=== PATIENT | male | born 1940 | race Caucasian/White ===

== ENCOUNTER 2019-12-06 10:23 | Outpatient (NON) | payer MEDICARE, SELFPAY ==
[2019-12-06 20:24] LABS: SARS-CoV-2 RNA PCR Positive
== END 2019-12-06 10:24 ==
PROVIDERS: PCP Family Medicine; Visit Provider Physician Assistant
DX: U07.1 COVID-19 (principal)
CPT/HCPCS: 87635; C9803; U0003

== ENCOUNTER 2019-12-09 06:59 | Inpatient (IN) | payer MEDICARE, SELFPAY ==
[2019-12-09] VITALS (25 sets, daily range): BP systolic 79–161; BP diastolic 59–99; PULSE 73–88; RESP 16–27; TEMP 35.6–36.8; O2SAT 79–100; BMI 27.3
--- NOTE | ~2019-12-09 | XR_ITS ---
EXAMINATION: XR chest 1V portable INDICATION: Respiratory failure TECHNIQUE: Portable AP chest at 0531 hours COMPARISON: 12/11/2019 FINDINGS: Diffuse interstitial and airspace opacities persist with slight worsening in upper the lung zones. There is no pleural effusion or pneumothorax. The cardiomediastinal silhouette is normal. IMPRESSION: 1. . Diffuse lung disease with worsening in the upper lung zones, consistent with pneumonia and/or pu lmonary edema and/or acute respiratory distress syndrome (ARDS). Reviewed, dictated and finalized at location A. IMPRESSION: 1. . Diffuse lung disease with worsening in the upper lung zones, consistent wi th pneumonia and/or pulmonary edema and/or acute respiratory distress syndrome (ARDS).
--- NOTE | ~2019-12-09 | XR_ITS ---
EXAMINATION: XR chest 1V portable DATE: 12/09/2019 07:57 INDICATION: COVID-19 pneumonia. TECHNIQUE: A single frontal view of the chest was obtained. COMPARISON: Chest 2 views 01/20/2014, chest CT 06/01/2015 FINDINGS: The patient is rotated to his right. There is volume loss of right hemithorax from right lo wer lobectomy. There are mild airspace opacities in all right lung zones and in left midlung zone. No pleural effusion. There is a small right pneumothorax. The heart size is normal. There is a stent gr aft in abdominal aorta. IMPRESSION: 1. Small right pneumothorax. I called this result to Dr. Hoyt on 12/09/19 at 8:05 AM. 2. Mild airspace opacities in right lung and left midlung zone, consistent with pneumonia. Reviewed, dictated and finalized at location A. IMPRESSION: 1. Small right pneumothorax. I called this result to Dr. Hoyt on 12/09/19 at 8: 05 AM. 2. Mild airspace opacities in right lung and left midlung zone, consistent with pneumonia.
--- NOTE | ~2019-12-09 | XR_ITS ---
EXAMINATION: XR chest 1V portable INDICATION: Hypoxia, increasing oxygen needs TECHNIQUE: Portable AP chest at 1111 hours COMPARISON: 0749 hours FINDINGS: There is an unchanged small right apical pneumothorax. There are diffuse airspace opacities with slight improvement in the upper lung zones. No pleural effusion is identified. The cardiomedias tinal silhouette is stable. IMPRESSION: 1. Stable small right apical pneumothorax. 2. Diffuse lung disease with slight improvement in the upper lung zones, consistent with pneumonia. Reviewed, dictated and finalized at location A. IMPRESSION: 1. Stable small right apical pneumothorax. 2. Diffuse lung disease with slight improvement in the upper lung zones, consis tent with pneumonia.
--- NOTE | ~2019-12-09 | XR_ITS ---
EXAMINATION: XR chest 1V portable DATE: 12/10/2019 06:05 INDICATION: Respiratory failure. COVID-19 pneumonia. TECHNIQUE: A single frontal view of the chest was obtained. COMPARISON: Chest single view 12/09/2019 FINDINGS: There are airspace and interstitial opacities throughout the lungs bilaterally. No pleural effusion. There is a tiny right apical pneumothorax. The heart size is normal. There is a stent graft in abdominal aorta. IMPRESSION: 1. Worsened diffuse lung disease, consistent with pneumonia versus pulmonary edema versus acute respi ratory distress syndrome (ARDS). 2. Tiny right apical pneumothorax with interval improvement. Reviewed, dictated and finalized at location A. IMPRESSION: 1. Worsened diffuse lung disease, consistent with pneumonia versus pulmonary ed zev versus acute respiratory distress syndrome (ARDS). 2. Tiny right apical pneumothorax with interval improvement.
--- NOTE | ~2019-12-09 | XR_ITS ---
EXAMINATION: XR chest 1V portable DATE: 12/17/2019 08:22 INDICATION: COVID-19 pneumonia. TECHNIQUE: A single frontal view of the chest was obtained. COMPARISON: Chest single view 12/14/2019 FINDINGS: There are interstitial airspace opacities involving all lung zones bilaterally. No pleural effusion or pneumothorax. The heart size is normal. A right upper extremity peripherally inserted michelle tral venous catheter (PICC) is seen with tip at the superior cavoatrial junction. There is a stent gr aft in abdominal aorta. IMPRESSION: 1. Stable diffuse lung disease, consistent with pneumonia versus pulmonary edema versus acute respira tory distress syndrome (ARDS). Reviewed, dictated and finalized at location B. IMPRESSION: 1. Stable diffuse lung disease, consistent with pneumonia versus pulmonary myron a versus acute respiratory distress syndrome (ARDS).
--- NOTE | ~2019-12-09 | XR_ITS ---
EXAMINATION: XR chest 1V portable INDICATION: COVID 19 pneumonia TECHNIQUE: Portable AP chest at 0542 hours COMPARISON: 12/19/2019 FINDINGS: There are diffuse interstitial opacities of the lungs which demonstrate improvement in the right upper lung zone and worsening throughout the left lung. A right upper extremity PICC ends with its tip in the superior cavoatrial junction. The heart size is normal. There is no pleural effusion o r pneumothorax. IMPRESSION: 1. Diffuse lung disease with slight worsening throughout the left hemithorax in slight improvement in the right upper lung zone, consistent with pneumonia and/or pulmonary edema and/or acute respiratory distress syndrome (ARDS). Reviewed, dictated and finalized at location A. IMPRESSION: 1. Diffuse lung disease with slight worsening throughout the left hemithorax in slight improvement in the right upper lung zone, consistent with pneumonia and /or pulmonary edema and/or acute respiratory distress syndrome (ARDS).
--- NOTE | ~2019-12-09 | XR_ITS ---
EXAMINATION: XR chest 1V portable DATE: 12/19/2019 05:55 INDICATION: COVID-19 pneumonia TECHNIQUE: frontal view of the chest was obtained. COMPARISON: Chest radiograph dated 12/17/2019 FINDINGS: Apparent slight increase in density without significant change in extent of bilateral patchy and kely stinct interstitial opacities throughout both lungs. Tiny bilateral pleural effusions. No pneumothora x. Heart size is normal. Right upper extremity peripherally inserted central venous catheter (PICC) t ip at the caudal superior vena cava. . Partially visualized abdominal aortic stent graft. IMPRESSION: 1. Slight progression in diffuse bilateral lung disease which could represent pneumonia, pulmonary ed zev, ARDS or some combination thereof. Reviewed, dictated and finalized at location A. IMPRESSION: 1. Slight progression in diffuse bilateral lung disease which could represent p neumonia, pulmonary edema, ARDS or some combination thereof.
--- NOTE | ~2019-12-09 | US_ITS ---
EXAMINATION: US venous doppler [facility] DATE: 12/23/2019 11:27 INDICATION: Bilateral lower limb pain TECHNIQUE: Theodore scale images without and with compression and Doppler images of the bilateral lower e xtremity veins were obtained. COMPARISON: None FINDINGS: The right common femoral vein, profunda femoral vein, femoral vein, popliteal vein, peroneal trunk, p osterior tibial veins, and greater saphenous vein are patent. The left common femoral vein, profunda femoral vein, femoral vein, popliteal vein, peroneal trunk, po sterior tibial veins, and greater saphenous vein are patent. IMPRESSION: 1. Patent bilateral lower extremity veins. No evidence of deep venous thrombosis. Reviewed, dictated and finalized at location A. IMPRESSION: 1. Patent bilateral lower extremity veins. No evidence of deep venous thrombosi s.
--- NOTE | ~2019-12-09 | XR_ITS ---
EXAMINATION: XR chest 1V portable DATE: 12/29/2019 05:48 INDICATION: Acute respiratory failure TECHNIQUE: frontal view of the chest was obtained. COMPARISON: Chest radiograph dated 12/28/2019 FINDINGS: Right upper extremity peripherally inserted central venous catheter (PICC) tip at the caudal superio r vena cava. No interval change in bilateral coarse reticular and patchy airspace opacities througho ut both lungs. Increased subpleural lucency at the apices and costophrenic angles correspond emphysem a on prior CT. Likely trace bilateral pleural effusions. No pneumothorax. Skinfold projects over the lateral left lung. Heart size is normal. Aneurysmal aortic arch. Partially visualized abdominal aorti c endoluminal stent graft. IMPRESSION: 1. Unchanged diffuse bilateral lung disease which could represent pneumonia, pulmonary edema, post in fectious atelectasis/scarring or some combination thereof. 2. Emphysema. Reviewed, dictated and finalized at location A. IMPRESSION: 1. Unchanged diffuse bilateral lung disease which could represent pneumonia, pu lmonary edema, post infectious atelectasis/scarring or some combination thereof . 2. Emphysema.
--- NOTE | ~2019-12-09 | XR_ITS ---
XR chest 1V portable 01/01/2020 07:02 Indication: Pneumonia. Pulmonary fibrosis. Procedure: AP portable chest Comparison: Comparison to multiple prior studies sequentially, with oldest reviewed study dated 10/2019. Findings: There is extensive mixed interstitial and airspace disease with progression in the left odette g base. The probable small pleural effusions. No pneumothorax. No acute osseous abnormality. PICC karyn e tip in the condyle aspect of the SVC. Impression: 1: Progression of extensive mixed interstitial and airspace disease which may represent a combination of pleural edema, pneumonia and/or pulmonary fibrosis. Reviewed, dictated and finalized at location A. Impression: 1: Progression of extensive mixed interstitial and airspace disease which may r epresent a combination of pleural edema, pneumonia and/or pulmonary fibrosis.
--- NOTE | ~2019-12-09 | XR_ITS ---
EXAMINATION: XR chest 1V portable INDICATION: Acute respiratory failure TECHNIQUE: Portable AP chest at 0601 hours COMPARISON: 12/25/2019 FINDINGS: A right upper extremity PICC ends with its tip in the distal superior vena cava. Diffuse op acities of the lungs persist with slight improvement in the right lung base. There is a small right p leural effusion. No pneumothorax is identified. The cardiomediastinal silhouette is stable. There is a partially imaged endoluminal aortic stent in the upper abdomen. IMPRESSION: 1. . Diffuse lung disease with improvement in the right lung base, consistent with pneumonia and/or p ulmonary edema and/or acute respiratory distress syndrome (ARDS). 2. Small right pleural effusion. Reviewed, dictated and finalized at location A. IMPRESSION: 1. . Diffuse lung disease with improvement in the right lung base, consistent w ith pneumonia and/or pulmonary edema and/or acute respiratory distress syndrome (ARDS). 2. Small right pleural effusion.
--- NOTE | ~2019-12-09 | XR_ITS ---
EXAMINATION: XR chest 1V portable DATE: 12/28/2019 05:47 INDICATION: Acute respiratory failure TECHNIQUE: frontal view of the chest was obtained. COMPARISON: Chest radiograph dated 12/28/2019 FINDINGS: Right upper extremity peripherally inserted central venous catheter (PICC) tip at the superior cavoa trial junction. Bilateral diffuse coarse reticular and patchy airspace opacities superimposed over em physema which is better appreciated on prior CT. Tiny bilateral pleural effusions. No pneumothorax. H eart size is normal. 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 Partially visualize d abdominal aortic endoluminal stent graft. IMPRESSION: 1. Diffuse bilateral coarse reticular and patchy airspace opacities with differential including pneum onia, pulmonary edema, atelectasis or some combination. 2. Emphysema. 3. Aneurysmal thoracic aortic arch with partially visualized endoluminal stent grafting abdominal aor ta. Of the Reviewed, dictated and finalized at location A. IMPRESSION: 1. Diffuse bilateral coarse reticular and patchy airspace opacities with differ ential including pneumonia, pulmonary edema, atelectasis or some combination. 2. Emphysema. 3. Aneurysmal thoracic aortic arch with partially visualized endoluminal stent grafting abdominal aorta. Of the
--- NOTE | ~2019-12-09 | XR_ITS ---
EXAMINATION: XR chest 1V portable INDICATION: COVID 19 pneumonia TECHNIQUE: Portable AP chest at 0548 hours COMPARISON: 12/24/2019 FINDINGS: A right upper extremity PICC ends with its tip in the distal superior vena cava. There are unchanged diffuse opacities in the lungs, left greater than right. Small pleural effusions are presen t. There is no pneumothorax. The cardiomediastinal silhouette is stable. IMPRESSION: 1. Stable diffuse lung disease, consistent with pneumonia and/or pulmonary edema and/or acute respira tory distress syndrome (ARDS). Reviewed, dictated and finalized at location A. IMPRESSION: 1. Stable diffuse lung disease, consistent with pneumonia and/or pulmonary myron a and/or acute respiratory distress syndrome (ARDS).
--- NOTE | ~2019-12-09 | XR_ITS ---
EXAMINATION: XR chest 1V portable DATE: 12/30/2019 06:15 INDICATION: Acute respiratory failure TECHNIQUE: frontal view of the chest was obtained. COMPARISON: Chest radiograph dated FINDINGS: Right upper extremity peripherally inserted central venous catheter (PICC) tip at the caudal superior vena cava. No interval change in bilateral coarse reticular and patchy airspace opacities throughout both lungs. Increased subpleural lucency at the apices and costophrenic angles corresponding to emph ysema on prior CT. Likely trace bilateral pleural effusions. No pneumothorax. Skinfold projects over the lateral left lung. Heart size is normal. Aneurysmal aortic arch. Partially visualized abdominal a ortic endoluminal stent graft. IMPRESSION: 1. Unchanged diffuse bilateral lung disease which could represent pneumonia, pulmonary edema, post in fectious atelectasis/scarring or some combination thereof. 2. Emphysema. Reviewed, dictated and finalized at location A. IMPRESSION: 1. Unchanged diffuse bilateral lung disease which could represent pneumonia, pu lmonary edema, post infectious atelectasis/scarring or some combination thereof . 2. Emphysema.
--- NOTE | ~2019-12-09 | XR_ITS ---
EXAMINATION: XR chest 1V portable INDICATION: COVID 19 pneumonia, shortness of breath TECHNIQUE: Portable AP chest at 0545 hours COMPARISON: 12/21/2019 FINDINGS: There are diffuse opacities in the lungs, left greater than right which demonstrate improve ment in the right lung base and worsening in the left lung base. Small pleural effusions are suggeste d. There is no pneumothorax. The cardiomediastinal silhouette is stable. A right upper extremity PICC ends with its tip at the superior cavoatrial junction. IMPRESSION: 1. . Diffuse lung disease with improvement in the right lung base and slight worsening in the left johanna ng base, consistent with pneumonia and/or pulmonary edema and/or acute respiratory distress syndrome (ARDS). Reviewed, dictated and finalized at location A. IMPRESSION: 1. . Diffuse lung disease with improvement in the right lung base and slight wo rsening in the left lung base, consistent with pneumonia and/or pulmonary edema and/or acute respiratory distress syndrome (ARDS).
--- NOTE | ~2019-12-09 | CT_ITS ---
EXAMINATION: CT chest high resolution wo ca DATE: 12/26/2019 09:28 INDICATION: Possible developing pulmonary fibrosis post COVID 19 TECHNIQUE: Computed tomography (CT) of the chest was performed without intravenous contrast. The dose -length product (DLP) was 208.78 mGy-cm. Automated exposure control and iterative reconstruction tech [employer] were employed. COMPARISON: 06/01/2015 FINDINGS: A right upper extremity PICC ends at the distal superior vena cava. Airspace opacities are present in the lung bases. There are diffuse reticular and groundglass opacities with an upper lung z one predominance. Emphysema was noted on the comparison examination. Chronic volume loss in the right hemithorax is consistent with prior right lower lobectomy. The heart size is normal. No pathological ly enlarged thoracic lymph nodes are identified. Calcified coronary artery atherosclerosis is noted. Small pleural effusions are present. There is no pneumothorax. A partially imaged endoluminal stent g raft is noted in the upper abdominal aorta. There is severe thoracic spondylosis. IMPRESSION: 1. Airspace opacities of the lung bases, consistent with atelectasis and pneumonia. 2. Diffuse reticular and groundglass opacities with upper lung zone predominance, left greater than r ight which could reflect sequela of COVID 19 pneumonia superimposed on a background of emphysema and/ or pulmonary fibrosis. 3. Small pleural effusions. Reviewed, dictated and finalized at location B. IMPRESSION: 1. Airspace opacities of the lung bases, consistent with atelectasis and pneumo edmond. 2. Diffuse reticular and groundglass opacities with upper lung zone predominanc e, left greater than right which could reflect sequela of COVID 19 pneumonia canchola perimposed on a background of emphysema and/or pulmonary fibrosis. 3. Small pleural effusions.
--- NOTE | ~2019-12-09 | XR_ITS ---
EXAMINATION: XR chest 1V portable INDICATION: Respiratory failure TECHNIQUE: Portable AP chest at 0528 hours COMPARISON: 12/10/2019 FINDINGS: Diffuse interstitial and airspace opacities persist with slight improvement in the left mid lung zone. No pleural effusion or pneumothorax is identified. The cardiomediastinal silhouette is nor mal. IMPRESSION: 1. Diffuse lung disease with slight improvement in the left upper lung zone, consistent with pneumoni a and/or pulmonary edema and/or acute respiratory distress syndrome (ARDS). Reviewed, dictated and finalized at location A. IMPRESSION: 1. Diffuse lung disease with slight improvement in the left upper lung zone, co nsistent with pneumonia and/or pulmonary edema and/or acute respiratory distres s syndrome (ARDS).
--- NOTE | ~2019-12-09 | XR_ITS ---
EXAMINATION: XR chest 1V portable INDICATION: Acute respiratory failure TECHNIQUE: Portable AP chest at 0513 hours COMPARISON: 12/26/2019 FINDINGS: A right upper extremity PICC ends with its tip in the distal superior vena cava. Diffuse in terstitial and airspace opacities are present throughout the lungs which are stable. A small right pl eural effusion is present. There is no pneumothorax. The cardiomediastinal silhouette is stable. Ther e is a partially imaged endovascular aortic stent in the upper abdomen. IMPRESSION: 1. Stable diffuse lung disease, consistent with atelectasis versus pneumonia in the lung bases superi mposed on a background of pulmonary fibrosis. 2. Small pleural effusions. Reviewed, dictated and finalized at location A. IMPRESSION: 1. Stable diffuse lung disease, consistent with atelectasis versus pneumonia in the lung bases superimposed on a background of pulmonary fibrosis. 2. Small pleural effusions.
--- NOTE | ~2019-12-09 | XR_ITS ---
EXAMINATION: XR chest PICC line EXAM DATE: 12/14/2019 12:33 INDICATION: PICC line placement. TECHNIQUE: Portable AP frontal chest x-ray was obtained. Comparison is made to prior examination from earlier same date. FINDINGS: There is a right-sided PICC line with tip projecting over the cavoatrial junction. There is extensive bilateral abnormal reticulation again seen, pulmonary edema and/or infection. No sizable p leural effusion. No pneumothorax. Cardiomediastinal silhouette is normal. Mild thoracic spondylosis. IMPRESSION: Extensive bilateral edema and/or infection not significantly changed. Reviewed, dictated and finalized at location A. IMPRESSION: Extensive bilateral edema and/or infection not significantly darnell ed.
--- NOTE | ~2019-12-09 | XR_ITS ---
EXAMINATION: XR chest 1V portable EXAM DATE: 12/13/2019 05:29 INDICATION: Respiratory failure. TECHNIQUE: Portable AP frontal chest x-ray was obtained. Comparison is made to prior examination from 12/12/2019, 12/10, 12/08. FINDINGS: There is extensive bilateral abnormal reticulation again seen, pulmonary edema and/or infec tion. Possible small right pleural effusion. No pneumothorax. Cardiomediastinal silhouette is normal. Mild thoracic spondylosis. IMPRESSION: Extensive bilateral edema and/or infection not significantly changed. Reviewed, dictated and finalized at location B. IMPRESSION: Extensive bilateral edema and/or infection not significantly darnell ed.
--- NOTE | ~2019-12-09 | XR_ITS ---
EXAMINATION: XR chest 1V portable EXAM DATE: 12/14/2019 06:01 INDICATION: Respiratory failure. TECHNIQUE: Portable AP frontal chest x-ray was obtained. Comparison is made to prior examination from 12/12, 12/11 FINDINGS: There is extensive bilateral abnormal reticulation again seen, pulmonary edema and/or inf ection. No sizable pleural effusion. No pneumothorax. Cardiomediastinal silhouette is normal. Mild th oracic spondylosis. IMPRESSION: Extensive bilateral edema and/or infection not significantly changed. Reviewed, dictated and finalized at location A. IMPRESSION: Extensive bilateral edema and/or infection not significantly darnell ed.
--- NOTE | 2019-12-09 07:00 | ECG_ITS ---
Measurements Intervals [place] Rate: 82 P: -6 NM: 146 QRS: 3 QRSD: 94 T: 14 QT: 381 QTc: 447 Interpretive Statements SINUS RHYTHM BORDERLINE T WAVE ABNORMALITY- INFERIOR LEADS BASELINE ARTIFACT- I, III, AVR, AVL, AVF, V1, V4-V6 BORDERLINE ECG Electronically Signed On 12-09-2019 9:45:10 CDT by Mike Rose D.O.
--- NOTE | 2019-12-09 07:19 | ED.SOB ---
HPI - SOB/Dyspnea General Chief Complaint: Shortness of Breath/Dyspnea Stated Complaint: SOB Time Seen by Provider: 12/09/19 07:11 Source: patient and EMS Mode of arrival: EMS History of Present Illness HPI Narrative: 79 years old white male been complaining of general body aches, not feeling well, slight coughing for the last few days, COVID-19 was +2 days ago, this morning have trouble breathing. History of COPD, former smoker, hypertension, hyperlipidemia, coronary artery disease and peripheral vascular disorder. Related Data Allergies Allergy/AdvReac Type Severity Reaction Status Date / Time No Known Allergies Allergy Verified 11/30/19 11:05 Review of Systems Review of Systems: Narrative: CONSTITUTIONAL: Denies fever, chills, or sweats. EYES: Denies visual changes, redness, or discharge. ENT: Denies rhinorrhea, congestion, sore throat, or otalgia. CARDIOVASCULAR: Denies chest pain, palpitations, or edema. RESPIRATORY: Coughing and shortness of breath. GASTROINTESTINAL: Denies abdominal pain, nausea, vomiting, or diarrhea. GENITOURINARY: Denies dysuria or hematuria. SKIN: Denies rash or itching. MUSCULOSKELETAL: General body aches and pain NEUROLOGIC: Headache and weakness PSYCHIATRIC: Anxiety and depression PMF Past Medical History Medical History AAA (abdominal aortic aneurysm) Anxiety BPH (benign prostatic hyperplasia) CAD (coronary artery disease) Chronic ankle pain Diverticulosis History of lung cancer HLD (hyperlipidemia) HTN (hypertension) IFG (impaired fasting glucose) Pulmonary emphysema PVD (peripheral vascular disease) Surgical History Surgical History History of PTCA S/P lobectomy of lung Family History Family History Sibling Cerebrovascular accident Family history of coronary artery disease Father Family history of coronary artery disease Mother Family history of coronary artery disease Social History Social History Smoking status: Former smoker Second hand tobacco smoke exposure: No Smoking end date: 04/21/13 Alcohol intake: current Drinks per week: 3 Substance use: never Substance use type: does not use Gender identity (if verbalized by the patient): Male Exam Narrative: Exam Narrative: General appearance: Well-developed, well-nourished, slight labored breathing, arrived on nonrebreather Skin: Normal color Head: Normocephalic, nontraumatic Eyes: Clear conjunctiva ENT: Oropharynx normal, ears normal, nose normal Neck: Supple, nontender Chest and respiratory: Airway patent, slight diminution of air entry bilaterally, basilar dry rales Heart: Regular rate/rhythm Abdomen: Soft, nontender, no organomegaly, quiet bowel sounds Vascular: Normal peripheral pulses, normal capillary refill. Musculoskeletal: Normal range of motion, nontender back Neurologic: Alert and oriented ?3, AGING BOX HAND is normal as tested, no gross motor deficit Course Course Emergency Course: Stable Consultations Consultation #1: Dr. JOHNS Date: 12/09/19 Time: 08:12 Consultation #2: DR AZUL Date: 12/09/19 Time: 08:13 Consultation #3: [place] Date: 12/09/19 Time: 08:14 Vital Signs Vital signs: Vital Signs Temperature 36.8 C 12/09/19 06:55 Pulse Rate 85 12/09/19 06:55 Respiratory Rate 24 H 12/09/19 06:55 Blood Pressure 107/70 12/09/19 06:55 Pulse Oximetry 98 12/09/19 06:55 Temperature 36.8 C 12/09/19 06:55 Pulse Rate 85 12/09/19 06:55 Respiratory Rate 24 H 12/09/19 06:55 Blood Pre
[2019-12-09 07:48] LABS: Basophils Absolute Auto 0.1 K/mm3 (0.0-0.1); Basophils Percent Auto 0.5 % (0.2-1.2); Eosinophils Percent Auto 0.4 % (0-4.4); Hematocrit 39.1 % (42.0-52.0); Hemoglobin 12.6 g/dL (14.0-18.0); Lymphocytes Absolute Auto 0.99 K/mm3 (0.9-3.2); Lymphocytes Percent Auto 9.9 % (18.3-44.2); Mean Corpuscular HGB Conc 32.2 g/dl (32-36); Mean Corpuscular Hemoglobin 28.6 pg (26-34); Mean Corpuscular Volume 88.7 fl (80-100); Mean Platelet Volume 9.7 fl (7.4-10.4); Monocytes Absolute Auto 0.3 K/mm3 (0.1-0.6); Monocytes Percent Auto 2.9 % (2.6-8.5); Neutrophils Absolute Auto 8.4 K/mm3 (1.3-6.7); Neutrophils Percent Auto 84.3 % (45.5-73.1); Platelet Count Result 275 k/mm3 (150-375); Red Blood Count 4.41 M/mm3 (4.6-6.20)
[2019-12-09 08:00] LABS: Creatine Kinase 25 U/L (55-170); Lactate Dehydrogenase 931 U/L (313-618)
[2019-12-09 08:02] LABS: INR 1.2; Prothrombin Time 14.9 Seconds (11.1-14.7)
[2019-12-09 08:03] LABS: Partial Thromboplastin Time 30.6 SECONDS (22.3-36.8)
[2019-12-09 08:04] LABS: Alanine Aminotransferase 30 U/L (4-50); Albumin Level 3.3 g/dL (3.5-5.1); Alkaline Phosphatase 81 U/L (38-126); Anion Gap 8 mmol/L (8-16); Aspartate Amino Transferase 42 U/L (17-59); Bilirubin,Total 0.5 mg/dL (0.2-1.3); Blood Urea Nitrogen 25 mg/dL (9-20); Calcium 8.4 mg/dL (8.4-10.2); Carbon Dioxide 28 mmol/L (22-30); Chloride 102 mmol/L (98-107); Estimated CRCL calculation 48 ml/min; Estimated Glomerular Filt Rate 59; Glucose 123 mg/dL (75-110); Potassium 3.5 mmol/L (3.4-5.0); Sodium 138 mmol/L (137-145)
[2019-12-09 08:21] LABS: CRP 24.8 mg/dL (<1.0)
[2019-12-09] MEDS: SODIUM CHLORIDE 0.9% IV 1,000 ML 500 ML IV CONT (08:21)
[2019-12-09] MEDS: methylPREDNISolone SOD SUCC 125 MG VIAL (08:23)
[2019-12-09] MEDS: IPRATROPIUM BR 0.02% INH SOLN 0.5 MG/2.5 ML VIAL INHALATION (08:37)
[2019-12-09 08:39] LABS: Lactic Acid Reflex 1.7 mmol/L (0.7-2.1)
[2019-12-09 09:45] LABS: Alveolar/Arterial O2 Gradient 632.1 mmHg; Base Excess ABG -0.6 mEq/l (+/-2.0); Fractional Inspired Oxygen 100 %; HCO3 ABG 23.4 mEq/l (22.0-26.0); Oxygen Content ABG 13.6 %vol (16.0-22.0); Oxyhemoglobin 78.8 % THb (90.0-100.0); PCO2 ABG 36.4 mmHg (35.0-45.0); PO2 FiO2 Ratio Arterial Blood 0.44 %; Total Hemoglobin 12.3 g/dL (12.0-18.0); pH ABG 7.426 (7.350-7.450)
[2019-12-09 09:47] LABS: Device NON-REBREATHER MASK; Modified Allen's Test Pass; Oxygen Saturation ABG 81.9 % (95.0-100.0); PO2 ABG 44.5 mmHg (80.0-100.0); Site Drawn LEFT RADIAL
--- NOTE | 2019-12-09 10:52 | PC.NURSE ---
This patient, Fidel Nelson, was admitted to Intensive Care Unit-7 on 12/09/19 @ 1025. Patient arrived via cart, O2 and monitors applied. Patient oriented to hospital policies and general routines including ID bracelet, bed and alarms, visiting hours, pain management, procedures, bathroom and other care routines, personal items, smoking policy, room service/diet, and visiting hours. Valuables list has been completed. Information on how to activate the Rapid Response Team has been discussed. Patient is encouraged to report perceived risks to care and to ask questions if they do not understand what they are told or what they should do.
--- NOTE | 2019-12-09 11:47 | WPDCNINT ---
Assessment and Plan Assessment and plan (1) Acute respiratory failure due to COVID-19: Code(s): U07.1 - COVID-19; J96.00 - Acute respiratory failure, unspecified whether with hypoxia or hypercapnia Status: Acute Assessment and Plan: Acute respiratory failure secondary to COVID-19 with baseline COPD, right lobectomy and history of lung cancer SARS-CoV-2 PCR positive CXR shows diffuse bilateral infiltrates Patient is now on Airborne, Droplet and Contact Isolation He is very hypoxic although not in any distress. I have placed him on AirVo with 90% FiO2 and 60 liter/minute flow and his saturation has improved. Continue to closely monitor as he may need intubation check and monitor inflammatory markers I will start patient on dexamethasone, Remdesivir Bronchodilators Discussed benefits and risks of convalscent plasma therapy for COVID-19. I explained patient the risks of donor plasma which includes allergic reaction, transfusion reaction, possible transmission of infections like Hepatitis and HIV and even . Explained that donor plasma has shown benefit in some studies but is not a proven therapy. Patient understands the risks, is agreeable to proceed and gave his informed consent. I have placed order for 1 unit of convalscent plasma (2) Pneumothorax: Qualifiers: Pneumothorax type: other pneumothorax Qualified Code(s): J93.83 - Other pneumothorax Code(s): J93.9 - Pneumothorax, unspecified Status: Acute Assessment and Plan: CXR shows Stable small right apical pneumothorax. patient has history of lobectomy on the right and this may be chronic. Will continue to monitor. (3) Pulmonary emphysema: Code(s): J43.9 - Emphysema, unspecified Status: Acute Assessment and Plan: steroids and bronchodilators (4) CAD (coronary artery disease): Code(s): I25.10 - Atherosclerotic heart disease of [place] coronary artery without angina pectoris Status: Acute Assessment and Plan: aspirin and statin (5) HLD (hyperlipidemia): Code(s): E78.5 - Hyperlipidemia, unspecified Status: Acute Assessment and Plan: statin (6) HTN (hypertension): Code(s): I10 - Essential (primary) hypertension Status: Acute Assessment and Plan: blood pressure controlled at this time will treat if elevated Additional Plan DVT prophylaxis - Lovenox Stress ulcer prophylaxis - Protonix Code Status - I had extensive discussion with patient and patient requests to be full code at this time Total Critical Care Time - 30 minutes Due to a high probability of clinically significant, life threatening deterioration, the patient required my highest level of preparedness to intervene emergently and I personally spent this critical care time directly and personally managing the patient. This critical care time included obtaining a history; examining the patient; pulse oximetry; ordering and review of studies; arranging urgent treatment with development of a management plan; evaluation of patient's response to treatment; frequent reassessment; and discussions with other providers. It was exclusive of separately billable procedures and treating other patients and teaching time. Please see Assessment and Plan section and the rest of the note for further information on patient assessment and treatment Director Housekeeping Consult Note Consult date: 12/09/19 Time Seen: 11:00 HPI: Fidel Nelson is a 79 year old male with history of lung cancer status post lobectomy presented with chief complaint of not feeling well, body aches, chills and testing positive for COVID-19 as an outpatient. Patient has stated that his was not feeling well and she was tested for COVID-19 and was found positive. His doctor also ordered a test for him which came back positive 2 days ago. Patient has not been feeling well since yesterday with chief complaint of body ache chills and
--- NOTE | 2019-12-09 11:49 | PM.IMHP ---
H&P: HPI History of Present Illness Date/Time: 12/09/19 11:49 Chief complaint: COVID 19 pneumonia/right pneumothorax Narrative: Fidel Nelson is a 79 year old male with emphysema and hx of lung cancer here for SOB. Patient has been feeling ill beginning around 12/04. Patient has been feeling tired. Complains of bilateral leg pain. Also been having shortness of breath, fever and chills. He denies cough initially. No headaches. He does have anosmia and dysgeusia. Because of this reason he has had decreased appetite and not been eating much. He contacted his physician and a COVID test was ordered. COVID test returned positive on December 06. His is sick with similar symptoms and is COVID(+) asa well. Since that time his condition has worsened. He has been taking ibuprofen and Tylenol at home. He has not been to any large gatherings. He does wear a mask to stores. 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 over the past 2 days patient has had increasing shortness of breath. His weakness has worsened. He has not fallen but has been wobbly . Denies any numbness or tingling in his legs. No chest pain or palpitations. No nausea or vomiting. No diarrhea. No abdominal pain. No dysuria hematuria. No history of diabetes or thyroid disease. He continues to have myalgias. Because of the worsening symptoms EMS was contacted this morning. On evaluation patient had a respiratory rate of 32 and pulse ox was 80%. He is placed on high-flow oxygen and brought to the emergency room evaluation. In the emergency room patient was hemodynamically stable but a short time later as blood pressure did drop to 79/60. He was treated with Solu-Medrol and IV fluids. He was given Rocephin and azithromycin as well as nebulizer treatments. Blood pressure improved. He was admitted to the ICU for further management. Upon arrival to the ICU, he was only 50% pulse ox on 15 L non-rebreather mask and 15 L high-flow nasal cannula. He was switched Airvo with benefit. Currently he feels better and is resting comfortably. 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 but no chemotherapy or radiation History of urinary retention HLD (hyperlipidemia) HTN (hypertension) IFG (impaired fasting glucose) Pulmonary emphysema PVD (peripheral vascular disease) aortobifem stent Surgical History Surgical History History of ankle surgery History of PTCA S/P lobectomy of lung Family History Family History Sibling Cerebrovascular accident Family history of coronary artery disease Father Family history of coronary artery disease Mother Family history of coronary artery disease Social History Social History Social History: patient smoked of 2 packs a day for 50 years but quit 2013. He lives at home with his . He rarely drinks alcohol. He denies drug use. He is a full code. Nominates his to be the individual who would make medical decisions for him if he is not able Smoking status: Former smoker Tobacco type: cigarettes Second hand tobacco smoke exposure: No Smoking end date: 04/21/13 Alcohol intake: current Drinks per week: 3 Substance use: never Substance use type: does not use Gender identity (if verbalized by the patient): Male Sexual Orientation (if
[2019-12-09 13:49] LABS: Glucose Point of Care 145 (65-105)
[2019-12-09 13:51] LABS: NT Pro B Type Natriuretic Pept 1270 PG/ML (5-100)
[2019-12-09] MEDS: LACTATED RINGERS 1,000 ML 125 ML IV CONT (14:22)
[2019-12-09] MEDS: REMDESIVIR 200 MG/NS 250 ML 200 MG/250 ML BAG 250 MG IVPB (14:25)
[2019-12-09 18:25] LABS: Glucose Point of Care 162 (65-105)
[2019-12-09] MEDS: VERAPAMIL HCL 180 MG TABLET ER PO (19:55)
[2019-12-09] MEDS: SODIUM CHLORIDE 0.9% IV 100 ML 30 ML (19:55)
[2019-12-09] MEDS: ALPRAZolam 0.25 MG TABLET PO (20:07)
[2019-12-09 22:42] LABS: Glucose Point of Care 156 (65-105)
[2019-12-10] VITALS (21 sets, daily range): BP systolic 111–136; BP diastolic 65–78; PULSE 58–82; RESP 15–32; TEMP 35.8–36.5; O2SAT 82–100
[2019-12-10] MEDS: IPRATROPIUM BR 0.02% INH SOLN 0.5 MG/2.5 ML VIAL INHALATION (03:00)
[2019-12-10] MEDS: ALBUTEROL SULFATE NEB 2.5 MG/0.5 ML INH INHALATION (03:00)
[2019-12-10 05:02] LABS: Hematocrit 36.4 % (42.0-52.0); Hemoglobin 11.9 g/dL (14.0-18.0); Mean Corpuscular HGB Conc 32.7 g/dl (32-36); Mean Corpuscular Hemoglobin 28.6 pg (26-34); Mean Corpuscular Volume 87.5 fl (80-100); Mean Platelet Volume 9.7 fl (7.4-10.4); Platelet Count Result 265 k/mm3 (150-375); Red Blood Count 4.16 M/mm3 (4.6-6.20); Red Cell Distribution Width 13.7 % (11.5-14.5); White Blood Count 10.5 K/mm3 (4.5-10.0)
[2019-12-10 05:21] LABS: Alanine Aminotransferase 27 U/L (4-50); Albumin Level 3.2 g/dL (3.5-5.1); Alkaline Phosphatase 75 U/L (38-126); Anion Gap 9 mmol/L (8-16); Aspartate Amino Transferase 43 U/L (17-59); Bilirubin,Total 0.3 mg/dL (0.2-1.3); Blood Urea Nitrogen 22 mg/dL (9-20); Calcium 8.5 mg/dL (8.4-10.2); Carbon Dioxide 26 mmol/L (22-30); Chloride 106 mmol/L (98-107); Estimated CRCL calculation 89 ml/min; Estimated Glomerular Filt Rate > 60; Glucose 157 mg/dL (75-110); Lactate Dehydrogenase 1095 U/L (313-618); Magnesium 2.2 mg/dL (1.6-2.3); Potassium 3.8 mmol/L (3.4-5.0); Sodium 141 mmol/L (137-145)
[2019-12-10 05:41] LABS: CRP 23.8 mg/dL (<1.0)
[2019-12-10 06:18] LABS: D Dimer 5.21 ug/mL (<0.48)
--- NOTE | 2019-12-10 08:00 | WPDINTPN ---
Progress Note: A&P Assessment and Plan (1) Acute respiratory failure due to COVID-19: Code(s): U07.1 - COVID-19; J96.00 - Acute respiratory failure, unspecified whether with hypoxia or hypercapnia Status: Acute Assessment and Plan: Acute respiratory failure secondary to COVID-19 with baseline COPD, right lobectomy and history of lung cancer SARS-CoV-2 PCR positive CXR shows diffuse bilateral infiltrates which are worse today Patient is now on Airborne, Droplet and Contact Isolation He is very hypoxic although not in any distress. he is maintaining his oxygenation on AirVo with 90% FiO2 and 60 liter/minute flow Continue to closely monitor as he may need intubation continue to monitor inflammatory markers Dexamethasone, Remdesivir started 12/08 Convalscent plasma 1 unit given on 12/08 Bronchodilators Lovenox changed to 40 mg subcu q.12 hours due to high D-Dimer level I will give Lasix 40 mg IV today (2) Pneumothorax: Qualifiers: Pneumothorax type: other pneumothorax Qualified Code(s): J93.83 - Other pneumothorax Code(s): J93.9 - Pneumothorax, unspecified Status: Acute Assessment and Plan: CXR shows Stable small right apical pneumothorax which is unchanged today patient has history of lobectomy on the right and this may be chronic. Will continue to monitor. (3) Pulmonary emphysema: Code(s): J43.9 - Emphysema, unspecified Status: Acute Assessment and Plan: steroids and bronchodilators (4) CAD (coronary artery disease): Code(s): I25.10 - Atherosclerotic heart disease of [place] coronary artery without angina pectoris Status: Acute Assessment and Plan: aspirin and statin (5) HLD (hyperlipidemia): Code(s): E78.5 - Hyperlipidemia, unspecified Status: Acute Assessment and Plan: statin (6) HTN (hypertension): Code(s): I10 - Essential (primary) hypertension Status: Acute Assessment and Plan: blood pressure controlled at this time on home verapamil dose Additional Plan DVT prophylaxis - Lovenox changed to 40 mg subcu q.12 hours due to high D-Dimer level Stress ulcer prophylaxis - Protonix Start clear liquid diet Code Status - patient is full code at this time Total Critical Care Time - 30 minutes Due to a high probability of clinically significant, life threatening deterioration, the patient required my highest level of preparedness to intervene emergently and I personally spent this critical care time directly and personally managing the patient. This critical care time included obtaining a history; examining the patient; pulse oximetry; ordering and review of studies; arranging urgent treatment with development of a management plan; evaluation of patient's response to treatment; frequent reassessment; and discussions with other providers. It was exclusive of separately billable procedures and treating other patients and teaching time. Please see Assessment and Plan section and the rest of the note for further information on patient assessment and treatment Subjective Date/time seen: 12/10/19 Overnight events reviewed. Continues to be on non-rebreather mask and high-flow nasal cannula. Saturating in high 80s and low 90s. Saturation is better when he lays on his left side. This morning he feels his shortness of breath is better than yesterday. Continues to have dry cough. He wants to go home. he is not sure why he needs to stay in the hospital . Complaint is that he is hungry and wants to eat food and drink coffee. Afebrile Vitals acceptable Patient denies fever, chest pain, nausea, vomiting, abdominal pain, diarrhea, headache or constipation. Review of Systems Review of Systems: All systems reviewed & are unremarkable except as noted in HPI and below ( Subjective) Exam Narrative: Exam Narrative: General: Pt is alert awake and in NAD Lungs/Chest: Trachea michelle
[2019-12-10] MEDS: ASPIRIN 81 MG ENTERIC TABLET PO (08:38)
[2019-12-10] MEDS: TAMSULOSIN HCL 0.4 MG CAPSULE PO (08:38)
[2019-12-10] MEDS: VERAPAMIL HCL 180 MG TABLET ER PO ×2 (08:38→22:05)
[2019-12-10] MEDS: ATORVASTATIN 20 MG TABLET PO (08:39)
[2019-12-10] MEDS: PANTOPRAZOLE 40 MG TABLET PO (08:39)
[2019-12-10] MEDS: ENOXAPARIN 40 MG/0.4 ML SYRINGE SUB-Q ×2 (08:39→22:05)
[2019-12-10] MEDS: FUROSEMIDE INJ 40 MG/4 ML VIAL IV PUSH (09:15)
[2019-12-10 09:22] LABS: Glucose Point of Care 144 (65-105)
[2019-12-10] MEDS: INSULIN ASPART (*BKC) 100 UNITS/ML SUB-Q (12:23)
[2019-12-10 12:47] LABS: Glucose Point of Care 238 (65-105)
[2019-12-10] MEDS: REMDESIVIR 100 MG/NS 250 ML 100 MG/250 ML BAG 250 MG IVPB (13:06)
--- NOTE | 2019-12-10 16:07 | PM.IMPN ---
Progress Note: A&P Assessment and Plan (1) Acute respiratory failure with hypoxia: Code(s): J96.01 - Acute respiratory failure with hypoxia Status: Acute Assessment and Plan: Patient with significant oxygen requirement related to COVID complicated by his COPD. ABG confirming that this is all hypoxia. No evidence of CO2 retention. Chest x-ray today showing worsening bilateral airspace opacities. Patient has been admitted to the ICU for close monitoring. Wean oxygen as tolerated. Continue dexamethasone and Remdesivir. Continue close monitoring. Appreciate type casting machine operator input. (2) Pneumothorax: Qualifiers: Pneumothorax type: other pneumothorax Qualified Code(s): J93.83 - Other pneumothorax Code(s): J93.9 - Pneumothorax, unspecified Status: Acute Assessment and Plan: Chest x-ray showing also a small right apical pneumothorax. CXR today showing improvement. Doubt this is chronic given that not evident on CT scan from 01/2018. Continue to monitor with serial chest x-rays. This should improve on its own with high flow O2. We will need to monitor closely for worsening symptoms. (3) COVID-19: Code(s): U07.1 - COVID-19 Status: Acute Assessment and Plan: Patient is approximately 5 days out from the onset of symptoms (approx 12/05/19). He tested positive on December 06 for COVID. Dexamethasone and Remdesivir have been started 12/09/19. Convalescent plasma given 12/09/2019. Inflammatory markers by large chart worsened. Patient remaining stable. He is still has a considerable O2 requirement. Continue supportive care. Continue to follow inflammatory markers. (4) Pulmonary emphysema: Code(s): J43.9 - Emphysema, unspecified Status: Acute Assessment and Plan: Patient has a long history of tobacco use and subsequent emphysema. Albuterol and Atrovent inhalers have been ordered as needed. Wean oxygen as tolerated. Continue supportive care (5) HTN (hypertension): Code(s): I10 - Essential (primary) hypertension Status: Acute Assessment and Plan: BP well controlled. Continue verapamil with parameters in place. Continue to monitor (6) DVT prophylaxis: Code(s): Z29.9 - Encounter for prophylactic measures, unspecified Status: Acute Assessment and Plan: Lovenox Subjective Date/time seen: 12/10/19 16:07 Interval history: 79yo male with COPD and recently diagnosed with COVID here for acute respiratory. Hypoxia better today when out of bed to the chair. Eating okay (as clear liquids). He is now on Airvo 60L 94% and offf NRB. No CP and does not feel SOB. No n/v. Exam Narrative: Exam Narrative: AF 97.7 132/99 76 20 96% Aitvo Gen - NARD sitting up in chair Chest - bilateral inspiratory and expiratory rhonchi CV - RRR with distant S1-S2. Tele showing sinus arrhtyhma, PVCs Abd - soft, NT/ND, +BS Ext - no pedal edema. Psych - normal mood and affect. Patient is pleasant and cooperative. Skin - warm and dry. Objective Data Vital Signs Vital Signs: Vital Signs - 24 hr 12/09/19 18:00 12/09/19 19:47 12/09/19 20:00 Temperature 96.8 F L Pulse Rate 77 78 82 Respiratory Rate 22 H 25 H Blood Pressure 139/91 H 150/85 H Pulse Oximetry 93 99 12/09/19 20:05 12/09/19 21:05 12/09/19 21:50 Temperature 96.1 F L 96.8 F L 96.8 F L Pulse Rate 79 76 77 Respiratory Rate 20 25 H 26 H Blood Pressure 161/90 H 141/85 H 152/87 H Pulse Oximetry 100 93 93 12/09/19 22:00 12/09/19 22:07 12/09/19 22:08 Temperature Pulse Rate 77 79 Respiratory Rate 23 H Blood Pressure Pulse Oximetry 92 12/09/19 22:17 12/10/19 00:00 12/10/19 00:01 Temperature 97.7 F Pulse Rate 73 74 73 Respiratory Rate 27 H 24 H Blood Pressure 136/69 Pulse Oximetry 92 12/10/19 02:00 12/10/19 03:08 12/10/19 03:18 Temperature Pulse Rate 76 71 76 Respiratory Rate 21 H 24 H 24
[2019-12-10 17:31] LABS: Glucose Point of Care 135 (65-105)
[2019-12-10 21:12] LABS: Glucose Point of Care 135 (65-105)
[2019-12-10] MEDS: ALPRAZolam 0.25 MG TABLET PO (22:06)
[2019-12-10] MEDS: ACETAMINOPHEN 325 MG TABLET 650 MG PO (23:29)
[2019-12-11] VITALS (21 sets, daily range): BP systolic 103–148; BP diastolic 54–109; PULSE 58–78; RESP 15–24; TEMP 35.6–35.9; O2SAT 87–99
[2019-12-11 05:13] LABS: Hemoglobin 11.6 g/dL (14.0-18.0); Mean Corpuscular HGB Conc 33.1 g/dl (32-36); Mean Corpuscular Hemoglobin 28.9 pg (26-34); Mean Corpuscular Volume 87.3 fl (80-100); Mean Platelet Volume 9.8 fl (7.4-10.4); Platelet Count Result 334 k/mm3 (150-375); Red Blood Count 4.01 M/mm3 (4.6-6.20); White Blood Count 14.8 K/mm3 (4.5-10.0)
[2019-12-11 05:21] LABS: Alanine Aminotransferase 23 U/L (4-50); Alkaline Phosphatase 83 U/L (38-126); Anion Gap 6 mmol/L (8-16); Aspartate Amino Transferase 36 U/L (17-59); Bilirubin,Total 0.4 mg/dL (0.2-1.3); Blood Urea Nitrogen 30 mg/dL (9-20); Calcium 8.3 mg/dL (8.4-10.2); Carbon Dioxide 28 mmol/L (22-30); Chloride 105 mmol/L (98-107); Estimated CRCL calculation 77 ml/min; Estimated Glomerular Filt Rate > 60; Glucose 157 mg/dL (75-110); Magnesium 2.3 mg/dL (1.6-2.3); Potassium 3.6 mmol/L (3.4-5.0); Sodium 139 mmol/L (137-145)
[2019-12-11] MEDS: VERAPAMIL HCL 180 MG TABLET ER PO ×2 (08:03→20:03)
[2019-12-11] MEDS: ENOXAPARIN 40 MG/0.4 ML SYRINGE SUB-Q ×2 (08:03→20:03)
[2019-12-11] MEDS: PANTOPRAZOLE 40 MG TABLET PO (08:03)
[2019-12-11] MEDS: TAMSULOSIN HCL 0.4 MG CAPSULE PO (08:03)
[2019-12-11] MEDS: ASPIRIN 81 MG ENTERIC TABLET PO (08:03)
[2019-12-11 08:51] LABS: Glucose Point of Care 126 (65-105)
[2019-12-11 12:08] LABS: Glucose Point of Care 157 (65-105)
[2019-12-11] MEDS: ATORVASTATIN 20 MG TABLET PO (13:01)
--- NOTE | 2019-12-11 13:25 | WPDINTPN ---
Progress Note: A&P Assessment and Plan (1) Acute respiratory failure due to COVID-19: Code(s): U07.1 - COVID-19; J96.00 - Acute respiratory failure, unspecified whether with hypoxia or hypercapnia Status: Acute Assessment and Plan: Acute respiratory failure secondary to COVID-19 with baseline COPD, right lobectomy and history of lung cancer SARS-CoV-2 PCR positive CXR shows diffuse bilateral infiltrates Patient is now on Airborne, Droplet and Contact Isolation He is very hypoxic although not in any distress. he is maintaining his oxygenation on AirVo with 80% FiO2 and 60 liter/minute flow continue to monitor inflammatory markers Dexamethasone, Remdesivir started 12/08 Convalscent plasma 1 unit given on 12/08 Bronchodilators Lovenox changed to 40 mg subcu q.12 hours due to high D-Dimer level will diurese patient again today with 40 mg IV x1 (2) Pneumothorax: Qualifiers: Pneumothorax type: other pneumothorax Qualified Code(s): J93.83 - Other pneumothorax Code(s): J93.9 - Pneumothorax, unspecified Status: Acute Assessment and Plan: CXR shows Stable small right apical pneumothorax which is unchanged today patient has history of lobectomy on the right and this may be chronic. Will continue to monitor. (3) Pulmonary emphysema: Code(s): J43.9 - Emphysema, unspecified Status: Acute Assessment and Plan: steroids and bronchodilators (4) CAD (coronary artery disease): Code(s): I25.10 - Atherosclerotic heart disease of [place] coronary artery without angina pectoris Status: Acute Assessment and Plan: aspirin and statin (5) HLD (hyperlipidemia): Code(s): E78.5 - Hyperlipidemia, unspecified Status: Acute Assessment and Plan: statin (6) HTN (hypertension): Code(s): I10 - Essential (primary) hypertension Status: Acute Assessment and Plan: blood pressure controlled at this time on home verapamil dose Additional Plan DVT prophylaxis - Lovenox 40 mg subcu q.12 hours due to elevated D-Dimer level Stress ulcer prophylaxis - Protonix continue diabetic diet Code Status - patient is full code at this time Total Critical Care Time - 33 minutes Due to a high probability of clinically significant, life threatening deterioration, the patient required my highest level of preparedness to intervene emergently and I personally spent this critical care time directly and personally managing the patient. This critical care time included obtaining a history; examining the patient; pulse oximetry; ordering and review of studies; arranging urgent treatment with development of a management plan; evaluation of patient's response to treatment; frequent reassessment; and discussions with other providers. It was exclusive of separately billable procedures and treating other patients and teaching time. Please see Assessment and Plan section and the rest of the note for further information on patient assessment and treatment Subjective Date/time seen: 12/11/19 13:25 Interval history: Reason for consult: Acute respiratory failure due to code, pneumothorax, emphysema 12/11/2019: Patient seen examined this morning in the ICU, sitting up in chair, This completed his breakfast, he has a good appetite. Denies any shortness of breath, chest pain,abdominal pain, nausea, vomiting, diarrhea. Patient remains on high-flow therapy with FiO2 of 80% and 60 L flow rate. in output has been adequate, patient is afebrile Review of Systems Review of Systems: All systems reviewed & are unremarkable except as noted in HPI and below ( Subjective) ROS unobtainable: Yes unobtainable due to medical condition Exam Narrative: Exam Narrative: General: Pt is alert awake and in NAD Lungs/Chest: Trachea central coarse BS B/L, No crackles or wheezing. Cardiac: RRR. Normal S1 S2. No murmurs Circulation: Pedal pulses are intact and
[2019-12-11] MEDS: REMDESIVIR 100 MG/NS 250 ML 100 MG/250 ML BAG 250 MG IVPB (13:45)
[2019-12-11] MEDS: FUROSEMIDE INJ 40 MG/4 ML VIAL IV PUSH (15:23)
[2019-12-11] MEDS: ALPRAZolam 0.25 MG TABLET PO ×2 (15:23→23:18)
--- NOTE | 2019-12-11 16:42 | PM.IMPN ---
Progress Note: A&P Assessment and Plan (1) Acute respiratory failure with hypoxia: Code(s): J96.01 - Acute respiratory failure with hypoxia Status: Acute Assessment and Plan: Patient with significant oxygen requirement related to COVID complicated by his COPD. ABG confirming that this is all hypoxia. No evidence of CO2 retention. Chest x-ray today showing slight improvement. Patient has been admitted to the ICU. Wean oxygen as tolerated. Continue dexamethasone and Remdesivir. Continue close monitoring. Appreciate server engineer input. (2) Pneumothorax: Qualifiers: Pneumothorax type: other pneumothorax Qualified Code(s): J93.83 - Other pneumothorax Code(s): J93.9 - Pneumothorax, unspecified Status: Acute Assessment and Plan: Chest x-ray showing also a small right apical pneumothorax on admission. CXR today showingno PTX. Continue to monitor with serial chest x-rays. We will need to monitor closely for worsening symptoms. (3) COVID-19: Code(s): U07.1 - COVID-19 Status: Acute Assessment and Plan: Patient is approximately 6 days out from the onset of symptoms (approx 12/05/19). He tested positive on December 06 for COVID. Dexamethasone and Remdesivir were started 12/09/19. Convalescent plasma given 12/09/2019. Inflammatory markers not checked today. Patient remaining stable but still has a considerable O2 requirement. Continue supportive care. (4) Pulmonary emphysema: Code(s): J43.9 - Emphysema, unspecified Status: Acute Assessment and Plan: Patient has a long history of tobacco use and subsequent emphysema. Albuterol and Atrovent inhalers have been ordered as needed. Wean oxygen as tolerated. Continue supportive care (5) HTN (hypertension): Code(s): I10 - Essential (primary) hypertension Status: Acute Assessment and Plan: BP well controlled. Continue verapamil with parameters in place. Continue to monitor (6) DVT prophylaxis: Code(s): Z29.9 - Encounter for prophylactic measures, unspecified Status: Acute Assessment and Plan: Lovenox Subjective Date/time seen: 12/11/19 16:42 Interval history: 79yo male with COPD and recently diagnosed with COVID here for acute respiratory. Requires Airvo and NRB mask when sleeping but does better when up to the [place] and only requires Airvo. No issues overnight. He denies n/v, CP. Slept well. Exam Narrative: Exam Narrative: AF 96.1 140/82 64 22 88% Gen - NARD sitting up in chair Chest - decreased BS right lung base o/w mid to lower lung bilateral inspiraotry crackles CV - RRR with distant S1-S2. Tele showing no significant dysrhythmias Abd - soft, NT/ND, +BS Ext - no pedal edema. Psych - normal mood and affect. Patient is pleasant and cooperative. Skin - warm and dry. Objective Data Vital Signs Vital Signs: Vital Signs - 24 hr 12/10/19 18:02 12/10/19 19:38 12/10/19 20:00 Temperature 96.5 F L Pulse Rate 71 65 62 Respiratory Rate 17 18 15 Blood Pressure 125/78 127/71 Pulse Oximetry 100 97 98 12/10/19 22:00 12/11/19 00:00 12/11/19 02:00 Temperature 96.7 F L Pulse Rate 58 L 63 78 Respiratory Rate 25 H 17 19 Blood Pressure 127/71 136/72 135/78 Pulse Oximetry 94 87 L 95 12/11/19 04:00 12/11/19 06:00 12/11/19 07:21 Temperature 96.7 F L Pulse Rate 63 60 60 Respiratory Rate 21 H 24 H 18 Blood Pressure 104/54 L 125/76 Pulse Oximetry 90 91 95 12/11/19 07:38 12/11/19 07:58 12/11/19 08:00 Temperature 96.2 F L Pulse Rate 59 L 63 62 Respiratory Rate 18 20 Blood Pressure 103/69 Pulse Oximetry 90 90 12/11/19 10:00 12/11/19 10:01 12/11/19 12:00 Temperature Pulse Rate 66 69 71 Respiratory Rate 23 H Blood Pressure 127/109 H Pulse Oximetry 91 12/11/19 13:44 12/11/19 14:00 12/11/19 16:00 Temperature 96.5 F L Pulse Rate 68 68 72 Respiratory Rate 23 H 16 Blood P
[2019-12-11 17:39] LABS: Glucose Point of Care 169 (65-105)
[2019-12-11] MEDS: FAMOTIDINE 10 MG TABLET PO (20:03)
[2019-12-11 20:19] LABS: Glucose Point of Care 197 (65-105)
[2019-12-11 21:03] LABS: Glucose Point of Care 207 (65-105)
[2019-12-12] VITALS (19 sets, daily range): BP systolic 124–170; BP diastolic 72–112; PULSE 58–79; RESP 14–23; TEMP 35.5–35.8; O2SAT 89–100
[2019-12-12] MEDS: ACETAMINOPHEN 325 MG TABLET 650 MG PO ×2 (02:39→22:48)
[2019-12-12] MEDS: FAMOTIDINE 10 MG TABLET PO ×2 (08:05→20:23)
[2019-12-12] MEDS: ENOXAPARIN 40 MG/0.4 ML SYRINGE SUB-Q ×2 (08:05→20:23)
[2019-12-12] MEDS: TAMSULOSIN HCL 0.4 MG CAPSULE PO (08:05)
[2019-12-12] MEDS: ATORVASTATIN 20 MG TABLET PO (08:05)
[2019-12-12] MEDS: VERAPAMIL HCL 180 MG TABLET ER PO ×2 (08:05→20:22)
[2019-12-12] MEDS: ASPIRIN 81 MG ENTERIC TABLET PO (08:05)
[2019-12-12 08:34] LABS: Glucose Point of Care 114 (65-105)
[2019-12-12 10:50] LABS: Basophils Absolute Auto 0.1 K/mm3 (0.0-0.1); Basophils Percent Auto 0.5 % (0.2-1.2); Eosinophils Percent Auto 0.1 % (0-4.4); Hematocrit 40.5 % (42.0-52.0); Hemoglobin 13.3 g/dL (14.0-18.0); Immature Granulocyte Absolute 0.94 K/mm3 (0.00-0.031); Immature Granulocyte Percent A 7.1 % (0-0.5); Lymphocytes Absolute Auto 1.05 K/mm3 (0.9-3.2); Lymphocytes Percent Auto 7.9 % (18.3-44.2); Mean Corpuscular HGB Conc 32.8 g/dl (32-36); Mean Corpuscular Hemoglobin 28.6 pg (26-34); Mean Corpuscular Volume 87.1 fl (80-100); Mean Platelet Volume 9.5 fl (7.4-10.4); Monocytes Absolute Auto 0.7 K/mm3 (0.1-0.6); Monocytes Percent Auto 5.3 % (2.6-8.5); Neutrophils Absolute Auto 10.5 K/mm3 (1.3-6.7); Neutrophils Percent Auto 79.1 % (45.5-73.1); Platelet Count Result 335 k/mm3 (150-375); Red Blood Count 4.65 M/mm3 (4.6-6.20); Red Cell Distribution Width 13.9 % (11.5-14.5); White Blood Count 13.2 K/mm3 (4.5-10.0)
[2019-12-12 11:02] LABS: D Dimer 3.23 ug/mL (<0.48)
[2019-12-12 11:03] LABS: Platelet Estimate Adequate (Adequate)
[2019-12-12 11:04] LABS: Burr Cells 1+ (NORMAL); Ovalocytes 1+ (NORMAL); Poikilocytosis 1+ (NORMAL)
[2019-12-12 11:15] LABS: Alanine Aminotransferase 23 U/L (4-50); Albumin Level 3.1 g/dL (3.5-5.1); Alkaline Phosphatase 95 U/L (38-126); Anion Gap 9 mmol/L (8-16); Aspartate Amino Transferase 35 U/L (17-59); Bilirubin,Total 0.4 mg/dL (0.2-1.3); Blood Urea Nitrogen 30 mg/dL (9-20); CRP 5.4 mg/dL (<1.0); Calcium 8.2 mg/dL (8.4-10.2); Carbon Dioxide 29 mmol/L (22-30); Chloride 105 mmol/L (98-107); Estimated CRCL calculation 89 ml/min; Estimated Glomerular Filt Rate > 60; Glucose 141 mg/dL (75-110); Lactate Dehydrogenase 1162 U/L (313-618); Magnesium 2.3 mg/dL (1.6-2.3); Potassium 3.1 mmol/L (3.4-5.0); Sodium 143 mmol/L (137-145)
[2019-12-12 12:39] LABS: Glucose Point of Care 127 (65-105)
--- NOTE | 2019-12-12 14:07 | WPDINTPN ---
Progress Note: A&P Assessment and Plan (1) Acute respiratory failure due to COVID-19: Code(s): U07.1 - COVID-19; J96.00 - Acute respiratory failure, unspecified whether with hypoxia or hypercapnia Status: Acute Assessment and Plan: Acute respiratory failure secondary to COVID-19 with baseline COPD, right lobectomy and history of lung cancer SARS-CoV-2 PCR positive CXR shows diffuse bilateral infiltrates Patient is now on Airborne, Droplet and Contact Isolation He is very hypoxic although not in any distress. he is maintaining his oxygenation on AirVo with 80% FiO2 and 60 liter/minute flow inflammatory markers trending down Dexamethasone, Remdesivir started 12/08 Convalscent plasma 1 unit given on 12/08 Bronchodilators Lovenox changed to 40 mg subcu q.12 hours due to high D-Dimer level - patient diuresed well, will hold diuresis today (2) Pneumothorax: Qualifiers: Pneumothorax type: other pneumothorax Qualified Code(s): J93.83 - Other pneumothorax Code(s): J93.9 - Pneumothorax, unspecified Status: Acute Assessment and Plan: chest x-ray with no change patient has history of lobectomy on the right and this may be chronic. Will continue to monitor. (3) Pulmonary emphysema: Code(s): J43.9 - Emphysema, unspecified Status: Acute Assessment and Plan: steroids and bronchodilators (4) CAD (coronary artery disease): Code(s): I25.10 - Atherosclerotic heart disease of [place] coronary artery without angina pectoris Status: Acute Assessment and Plan: aspirin and statin (5) HLD (hyperlipidemia): Code(s): E78.5 - Hyperlipidemia, unspecified Status: Acute Assessment and Plan: statin (6) HTN (hypertension): Code(s): I10 - Essential (primary) hypertension Status: Acute Assessment and Plan: blood pressure controlled at this time on home verapamil dose Additional Plan DVT prophylaxis - Lovenox 40 mg subcu q.12 hours due to elevated D-Dimer level Stress ulcer prophylaxis - famotidine continue diabetic diet Code Status - patient is full code at this time Total Critical Care Time - 33 minutes Due to a high probability of clinically significant, life threatening deterioration, the patient required my highest level of preparedness to intervene emergently and I personally spent this critical care time directly and personally managing the patient. This critical care time included obtaining a history; examining the patient; pulse oximetry; ordering and review of studies; arranging urgent treatment with development of a management plan; evaluation of patient's response to treatment; frequent reassessment; and discussions with other providers. It was exclusive of separately billable procedures and treating other patients and teaching time. Please see Assessment and Plan section and the rest of the note for further information on patient assessment and treatment Subjective Date/time seen: 12/12/19 14:07 Interval history: Reason for consult: Acute respiratory failure due to code, pneumothorax, emphysema 12/12/2019: patient seen and examined in the ICU. Remains on high-flow therapy, 80% FiO2, 60 L flow rate. Denies any shortness of breath, chest pain, abdominal pain, nausea, vomiting. Appetite has been great, no loss of smell or taste. Patient has been afebrile, urine output was with adequate. Patient states he is no distress feels better. Wanting to go home Review of Systems Review of Systems: All systems reviewed & are unremarkable except as noted in HPI and below ( Subjective) Exam Narrative: Exam Narrative: General: Pt is alert awake and in NAD Lungs/Chest: Trachea central coarse BS B/L, No crackles or wheezing. Cardiac: RRR. Normal S1 S2. No murmurs Circulation: Pedal pulses are intact and symmetrical. Abdomen: Normal bowel sounds. Soft. NT. ND. Extremities: No clubbing, cyano
[2019-12-12] MEDS: REMDESIVIR 100 MG/NS 250 ML 100 MG/250 ML BAG 250 MG IVPB (14:15)
[2019-12-12] MEDS: POTASSIUM CHLORIDE 20 MEQ TABLET 40 MEQ PO (15:33)
[2019-12-12 17:24] LABS: Glucose Point of Care 186 (65-105)
--- NOTE | 2019-12-12 19:04 | PM.IMPN ---
Progress Note: A&P Assessment and Plan (1) Acute respiratory failure with hypoxia: Code(s): J96.01 - Acute respiratory failure with hypoxia Status: Acute Assessment and Plan: Patient with significant oxygen requirement related to COVID complicated by his COPD. ABG confirming that this is all hypoxia. No evidence of CO2 retention. Chest x-ray today showing worsening in the upper lobes. Patient has been admitted to the ICU. Wean oxygen as tolerated. Continue dexamethasone and Remdesivir. Continue close monitoring. Appreciate electric transfer operator input. (2) Pneumothorax: Qualifiers: Pneumothorax type: other pneumothorax Qualified Code(s): J93.83 - Other pneumothorax Code(s): J93.9 - Pneumothorax, unspecified Status: Acute Assessment and Plan: Chest x-ray showing also a small right apical pneumothorax on admission. CXR today showing no PTX. Continue to monitor with serial chest x-rays. We will need to monitor closely for worsening symptoms. (3) COVID-19: Code(s): U07.1 - COVID-19 Status: Acute Assessment and Plan: Patient's approximate onset of symptoms started around 12/05/19. He tested positive for COVID on December 06. Dexamethasone and Remdesivir were started 12/09/19. Convalescent plasma given 12/09/2019. Inflammatory markers worse today except for CRP which is markedly better. Patient remaining stable but still has a considerable O2 requirement. Continue supportive care. (4) Pulmonary emphysema: Code(s): J43.9 - Emphysema, unspecified Status: Acute Assessment and Plan: Patient has a long history of tobacco use and subsequent emphysema. Albuterol and Atrovent inhalers have been ordered as needed. Wean oxygen as tolerated. Continue supportive care (5) HTN (hypertension): Code(s): I10 - Essential (primary) hypertension Status: Acute Assessment and Plan: BP well controlled. Continue verapamil with parameters in place. Continue to monitor (6) DVT prophylaxis: Code(s): Z29.9 - Encounter for prophylactic measures, unspecified Status: Acute Assessment and Plan: Lovenox Subjective Date/time seen: 12/12/19 19:04 Interval history: 79yo male with COPD and recently diagnosed with COVID here for acute respiratory. Feels well. Minimal feelings of SOB or [place] when getting up to the chair. No n/v. No CP. Exam Narrative: Exam Narrative: AF 96.1 135/75 71 22 96% Gen - NARD sitting up in bed Chest - improved air exchange, less rhinchi CV - RRR S1-S2. Tele showing no significant dysrhythmias Abd - soft, NT/ND, +BS Ext - no pedal edema. Psych - normal mood and affect. Patient is pleasant and cooperative. Skin - warm and dry. Objective Data Vital Signs Vital Signs: Vital Signs - 24 hr 12/11/19 20:00 12/11/19 21:27 12/11/19 21:33 Temperature 96.3 F L Pulse Rate 69 60 60 Respiratory Rate 22 H 18 15 Blood Pressure 129/73 136/69 Pulse Oximetry 92 89 L 99 12/11/19 23:43 12/12/19 00:00 12/12/19 01:45 Temperature 96.1 F L Pulse Rate 66 60 58 L Respiratory Rate 20 21 H Blood Pressure 148/86 H 156/86 H Pulse Oximetry 87 L 91 12/12/19 04:00 12/12/19 05:35 12/12/19 08:00 Temperature 96.1 F L Pulse Rate 61 58 L 60 Respiratory Rate 20 14 Blood Pressure 147/81 H 139/72 Pulse Oximetry 89 L 91 12/12/19 08:01 12/12/19 09:30 12/12/19 09:38 Temperature 96.0 F L Pulse Rate 60 75 Respiratory Rate 18 18 Blood Pressure 170/92 H Pulse Oximetry 91 97 97 12/12/19 10:00 12/12/19 12:00 12/12/19 12:16 Temperature 95.9 F L Pulse Rate 79 71 67 Respiratory Rate 23 H 18 Blood Pressure 145/89 H 146/83 H Pulse Oximetry 100 96 12/12/19 14:00 12/12/19 16:00 12/12/19 17:16 Temperature 96.1 F L Pulse Rate 60 61 69 Respiratory Rate 16 16 Blood Pressure 124/73 148/81 H Pulse Oximetry 95 92 12/12/19 18:00 12/12/19 18:01 Temperature
[2019-12-12] MEDS: ALPRAZolam 0.25 MG TABLET PO (20:23)
[2019-12-12 20:45] LABS: Glucose Point of Care 213 (65-105)
[2019-12-13] VITALS (15 sets, daily range): BP systolic 123–167; BP diastolic 73–100; PULSE 53–70; RESP 14–95; TEMP 35.8–36.3; O2SAT 16–100
[2019-12-13 04:20] LABS: Hematocrit 39.8 % (42.0-52.0); Mean Corpuscular HGB Conc 32.7 g/dl (32-36); Mean Corpuscular Hemoglobin 28.6 pg (26-34); Mean Corpuscular Volume 87.7 fl (80-100); Platelet Count Result 357 k/mm3 (150-375); Red Blood Count 4.54 M/mm3 (4.6-6.20); Red Cell Distribution Width 14.2 % (11.5-14.5); White Blood Count 13.9 K/mm3 (4.5-10.0)
[2019-12-13 04:48] LABS: Alanine Aminotransferase 23 U/L (4-50); Albumin Level 3.1 g/dL (3.5-5.1); Alkaline Phosphatase 105 U/L (38-126); Anion Gap 6 mmol/L (8-16); Aspartate Amino Transferase 39 U/L (17-59); Bilirubin,Total 0.4 mg/dL (0.2-1.3); Blood Urea Nitrogen 28 mg/dL (9-20); CRP 3.9 mg/dL (<1.0); Calcium 8.4 mg/dL (8.4-10.2); Carbon Dioxide 31 mmol/L (22-30); Chloride 105 mmol/L (98-107); Estimated CRCL calculation 89 ml/min; Estimated Glomerular Filt Rate > 60; Glucose 138 mg/dL (75-110); Lactate Dehydrogenase 1402 U/L (313-618); Magnesium 2.4 mg/dL (1.6-2.3); Phosphorus 3.7 mg/dL (2.5-4.5); Potassium 4.2 mmol/L (3.4-5.0); Sodium 142 mmol/L (137-145)
[2019-12-13] MEDS: ALPRAZolam 0.25 MG TABLET PO ×2 (05:40→19:57)
[2019-12-13] MEDS: VERAPAMIL HCL 180 MG TABLET ER PO ×2 (08:25→19:58)
[2019-12-13] MEDS: FAMOTIDINE 10 MG TABLET PO ×2 (08:25→19:58)
[2019-12-13] MEDS: ASPIRIN 81 MG ENTERIC TABLET PO (08:25)
[2019-12-13] MEDS: TAMSULOSIN HCL 0.4 MG CAPSULE PO (08:25)
[2019-12-13] MEDS: ATORVASTATIN 20 MG TABLET PO (08:25)
[2019-12-13] MEDS: ENOXAPARIN 40 MG/0.4 ML SYRINGE SUB-Q ×2 (08:26→19:58)
[2019-12-13 08:30] LABS: Glucose Point of Care 109 (65-105)
[2019-12-13 11:52] LABS: Glucose Point of Care 115 (65-105)
[2019-12-13] MEDS: CALCIUM CARBONATE (TUMS) 500 MG (200 MG ELEMENTAL) PO (12:53)
[2019-12-13] MEDS: REMDESIVIR 100 MG/NS 250 ML 100 MG/250 ML BAG 250 MG IVPB (12:54)
--- NOTE | 2019-12-13 14:36 | WPDINTPN ---
Progress Note: A&P Assessment and Plan (1) Acute respiratory failure due to COVID-19: Code(s): U07.1 - COVID-19; J96.00 - Acute respiratory failure, unspecified whether with hypoxia or hypercapnia Status: Acute Assessment and Plan: Acute respiratory failure secondary to COVID-19 with baseline COPD, right lobectomy and history of lung cancer SARS-CoV-2 PCR positive chest x-ray reviewed, continues to be hypoxic on 80% FiO2 and 60 L flow rate on high-flow oxygen therapy Patient is now on Airborne, Droplet and Contact Isolation following inflammatory markers, ferritin and CRP trending down, LDH in D-dimer trending up Dexamethasone started on 12/09/2019 - completed course of Remdesivir Convalscent plasma 1 unit given on 12/08 continue Bronchodilators Lovenox changed to 40 mg subcu q.12 hours due to high D-Dimer level - patient continues diuresed well on his own, will hold diuretics (2) Pneumothorax: Qualifiers: Pneumothorax type: other pneumothorax Qualified Code(s): J93.83 - Other pneumothorax Code(s): J93.9 - Pneumothorax, unspecified Status: Acute Assessment and Plan: chest x-ray with no change patient has history of lobectomy on the right and this may be chronic. Will continue to monitor. (3) Pulmonary emphysema: Code(s): J43.9 - Emphysema, unspecified Status: Acute Assessment and Plan: steroids and bronchodilators (4) CAD (coronary artery disease): Code(s): I25.10 - Atherosclerotic heart disease of [place] coronary artery without angina pectoris Status: Acute Assessment and Plan: aspirin and statin (5) HLD (hyperlipidemia): Code(s): E78.5 - Hyperlipidemia, unspecified Status: Acute Assessment and Plan: statin (6) HTN (hypertension): Code(s): I10 - Essential (primary) hypertension Status: Acute Assessment and Plan: blood pressure controlled at this time on home verapamil dose (7) DVT prophylaxis: Code(s): Z29.9 - Encounter for prophylactic measures, unspecified Status: Acute Assessment and Plan: Lovenox 40 mg is subcu q.12 hours due to elevated D-dimer (8) Dietary counseling and surveillance: Code(s): Z71.3 - Dietary counseling and surveillance Status: Acute Assessment and Plan: patient tolerating diabetic diet and has a good appetite, no loss of smell or taste stress ulcer prophylaxis: Famotidine Additional Plan discussed with patient at length and updated with his condition and plan of care. Code Status - patient is full code at this time Total Critical Care Time - 32 minutes Due to a high probability of clinically significant, life threatening deterioration, the patient required my highest level of preparedness to intervene emergently and I personally spent this critical care time directly and personally managing the patient. This critical care time included obtaining a history; examining the patient; pulse oximetry; ordering and review of studies; arranging urgent treatment with development of a management plan; evaluation of patient's response to treatment; frequent reassessment; and discussions with other providers. It was exclusive of separately billable procedures and treating other patients and teaching time. Please see Assessment and Plan section and the rest of the note for further information on patient assessment and treatment Subjective Date/time seen: 12/13/19 14:36 Interval history: Reason for consult: Acute respiratory failure due to code, pneumothorax, emphysema 12/13/2019: , on 80% FiO2, 60 L flow rate on high-flow therapy. Patient denies any shortness of breath, cough, chest pain, abdominal pain, nausea vomiting. His appetite has been great, no loss of smell or taste. Patient just feels weak. . Requesting to go home on oxygen. urine output has been adequate the patient is afebrile Review of Sy
--- NOTE | 2019-12-13 16:42 | P.PNIM_ITS ---
Progress Note: A&P Assessment and Plan (1) Acute respiratory failure with hypoxia: Code(s): J96.01 - Acute respiratory failure with hypoxia Status: Acute Assessment and Plan: * Patient with significant oxygen requirement related to COVID complicated by his COPD. * Wean oxygen as tolerated. He still requiring high flow oxygen. * Continue dexamethasone day #5 of 10 * Remdesivir was completed and also received convalescent plasma. Appreciate oracle forms developer input. (2) Pneumothorax: Qualifiers: Pneumothorax type: other pneumothorax Qualified Code(s): J93.83 - Other pneumothorax Code(s): J93.9 - Pneumothorax, unspecified Status: Acute Assessment and Plan: * Chest x-ray showing also a small right apical pneumothorax on admission. * Continue to monitor with serial chest x-rays. 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 (3) COVID-19: Code(s): U07.1 - COVID-19 Status: Acute Assessment and Plan: * Patient is approximately 6 days out from the onset of symptoms (approx 12/05/19). * He tested positive on December 06 for COVID. * Dexamethasone and Remdesivir were started 12/09/19. Convalescent plasma given 12/09/2019. * Inflammatory markers still elevated, on high dose lovenox due to elevated d dimer. (4) Pulmonary emphysema: Code(s): J43.9 - Emphysema, unspecified Status: Acute Assessment and Plan: * Patient has a long history of tobacco use and subsequent emphysema. * Albuterol and Atrovent inhalers have been ordered as needed. * Wean oxygen as tolerated. Continue supportive care (5) HTN (hypertension): Code(s): I10 - Essential (primary) hypertension Status: Acute Assessment and Plan: * Continue verapamil. (6) DVT prophylaxis: Code(s): Z29.9 - Encounter for prophylactic measures, unspecified Status: Acute Assessment and Plan: Lovenox Subjective Date/time seen: He feels restless today , denies feeling more SOB or having chest pain. 12/13/19 16:42 Exam Const: General: no acute distress Neck: Neck: supple and no JVD Resp: Auscultation: rhonchi and diminished lung sounds Other: Mild diffuse rhonchi but no wheezing. Cardio: Rate: regular rate Rhythm: regular rhythm Other: No tachycardia GI: Auscultation: normal bowel sounds Other: Non distended. Neuro: Speech: normal speech Motor exam (neuro): 5/5 motor strength present throughout Objective Data Vital Signs Vital Signs: Vital Signs - 24 hr 12/12/19 17:16 12/12/19 18:00 12/12/19 18:01 Temperature 96.1 F L Pulse Rate 69 72 71 Respiratory Rate 16 22 H Blood Pressure 148/81 H 135/75 Pulse Oximetry 92 96 12/12/19 20:00 12/12/19 20:30 12/12/19 22:00 Temperature 96.4 F L Pulse Rate 74 65 63 Respiratory Rate 23 H 18 17 Blood Pressure 156/86 H 159/112 H Pulse Oximetry 89 L 90 94 12/13/19 00:00 12/13/19 02:00 12/13/19 04:00 Temperature 96.6 F L 97.3 F L Pulse Rate 66 56 L 61 Respiratory Rate 22 H 22 H 21 H Blood Pressure 148/97 H 139/73 153/88 H Pulse Oximetry 92 94 89 L 12/13/19 05:45 12/13/19 06:00 12/13/19 08:00 Temper
--- NOTE | 2019-12-13 16:42 | PM.IMPN ---
Progress Note: A&P Assessment and Plan (1) Acute respiratory failure with hypoxia: Code(s): J96.01 - Acute respiratory failure with hypoxia Status: Acute Assessment and Plan: Patient with significant oxygen requirement related to COVID complicated by his COPD. Wean oxygen as tolerated. He still requiring high flow oxygen. Continue dexamethasone day #5 of 10 Remdesivir was completed and also received convalescent plasma. Appreciate cherry sorter input. (2) Pneumothorax: Qualifiers: Pneumothorax type: other pneumothorax Qualified Code(s): J93.83 - Other pneumothorax Code(s): J93.9 - Pneumothorax, unspecified Status: Acute Assessment and Plan: Chest x-ray showing also a small right apical pneumothorax on admission. Continue to monitor with serial chest x-rays. 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 (3) COVID-19: Code(s): U07.1 - COVID-19 Status: Acute Assessment and Plan: Patient is approximately 6 days out from the onset of symptoms (approx 12/05/19). He tested positive on December 06 for COVID. Dexamethasone and Remdesivir were started 12/09/19. Convalescent plasma given 12/09/2019. Inflammatory markers still elevated, on high dose lovenox due to elevated d dimer. (4) Pulmonary emphysema: Code(s): J43.9 - Emphysema, unspecified Status: Acute Assessment and Plan: Patient has a long history of tobacco use and subsequent emphysema. Albuterol and Atrovent inhalers have been ordered as needed. Wean oxygen as tolerated. Continue supportive care (5) HTN (hypertension): Code(s): I10 - Essential (primary) hypertension Status: Acute Assessment and Plan: Continue verapamil. (6) DVT prophylaxis: Code(s): Z29.9 - Encounter for prophylactic measures, unspecified Status: Acute Assessment and Plan: Lovenox Subjective Date/time seen: He feels restless today , denies feeling more SOB or having chest pain. 12/13/19 16:42 Exam Const: General: no acute distress Neck: Neck: supple and no JVD Resp: Auscultation: rhonchi and diminished lung sounds Other: Mild diffuse rhonchi but no wheezing. Cardio: Rate: regular rate Rhythm: regular rhythm Other: No tachycardia GI: Auscultation: normal bowel sounds Other: Non distended. Neuro: Speech: normal speech Motor exam (neuro): 5/5 motor strength present throughout Objective Data Vital Signs Vital Signs: Vital Signs - 24 hr 12/12/19 17:16 12/12/19 18:00 12/12/19 18:01 Temperature 96.1 F L Pulse Rate 69 72 71 Respiratory Rate 16 22 H Blood Pressure 148/81 H 135/75 Pulse Oximetry 92 96 12/12/19 20:00 12/12/19 20:30 12/12/19 22:00 Temperature 96.4 F L Pulse Rate 74 65 63 Respiratory Rate 23 H 18 17 Blood Pressure 156/86 H 159/112 H Pulse Oximetry 89 L 90 94 12/13/19 00:00 12/13/19 02:00 12/13/19 04:00 Temperature 96.6 F L 97.3 F L Pulse Rate 66 56 L 61 Respiratory Rate 22 H 22 H 21 H Blood Pressure 148/97 H 139/73 153/88 H Pulse Oximetry 92 94 89 L 12/13/19 05:45 12/13/19 06:00 12/13/19 08:00 Temperature 96.8 F L Pulse Rate 64 67 Respiratory Rate 17 23 H Blood Pressure 166/93 H 123/92 H Pulse Oximetry 84 L 93 100 12/13/19 10:00 12/13/19 12:00 12/13/19 14:00 Temperature 96.6 F L Pulse Rate 55 L 64 62 Respiratory Rate 14 95 H 18 Blood Pressure 135/74 147/81 H 161/86 H Pulse Oximetry 90 16 L 94 12/13/19 14:59 Temperature Pulse Rate 55 L Respiratory Rate 18 Blood Pressure Pulse Oximetry 96 Intake/Output Intake/Output: Intake & Output 12/10/19 12/11/19 12/12/19 12/13/19 23:59 23:59 23:59 23:59 Intake Total 2570 1450 910 610 Output Total 1475 1625 1400 1240 Balance 1095 -175 -490 -630 Meds/Results Medications: Active Medications Generic Name Dose Route Start Last Admin Trade Name Freq PRN Reason Stop Dose Ad
[2019-12-13 16:45] LABS: Glucose Point of Care 119 (65-105)
[2019-12-13] MEDS: MELATONIN 5 MG TABLET PO (19:57)
[2019-12-13 20:21] LABS: Glucose Point of Care 163 (65-105)
[2019-12-14] VITALS (16 sets, daily range): BP systolic 105–165; BP diastolic 55–103; PULSE 59–98; RESP 13–24; TEMP 36.2–36.4; O2SAT 86–99
[2019-12-14 05:53] LABS: Hematocrit 39.3 % (42.0-52.0); Hemoglobin 12.9 g/dL (14.0-18.0); Mean Corpuscular HGB Conc 32.8 g/dl (32-36); Mean Corpuscular Hemoglobin 28.2 pg (26-34); Mean Corpuscular Volume 85.8 fl (80-100); Mean Platelet Volume 9.8 fl (7.4-10.4); Platelet Count Result 383 k/mm3 (150-375); Red Blood Count 4.58 M/mm3 (4.6-6.20); Red Cell Distribution Width 14.1 % (11.5-14.5); White Blood Count 15.8 K/mm3 (4.5-10.0)
[2019-12-14 06:12] LABS: Alanine Aminotransferase 24 U/L (4-50); Alkaline Phosphatase 94 U/L (38-126); Anion Gap 7 mmol/L (8-16); Aspartate Amino Transferase 37 U/L (17-59); Bilirubin,Total 0.5 mg/dL (0.2-1.3); Blood Urea Nitrogen 24 mg/dL (9-20); CRP 2.7 mg/dL (<1.0); Calcium 8.3 mg/dL (8.4-10.2); Carbon Dioxide 26 mmol/L (22-30); Chloride 104 mmol/L (98-107); Estimated CRCL calculation 105 ml/min; Estimated Glomerular Filt Rate > 60; Glucose 127 mg/dL (75-110); Lactate Dehydrogenase 1365 U/L (313-618); Magnesium 2.2 mg/dL (1.6-2.3); Phosphorus 4.6 mg/dL (2.5-4.5); Potassium 3.9 mmol/L (3.4-5.0); Sodium 137 mmol/L (137-145)
[2019-12-14] MEDS: ENOXAPARIN 40 MG/0.4 ML SYRINGE SUB-Q ×2 (08:20→20:05)
[2019-12-14] MEDS: VERAPAMIL HCL 180 MG TABLET ER PO ×2 (08:21→20:04)
[2019-12-14] MEDS: ASPIRIN 81 MG ENTERIC TABLET PO (08:21)
[2019-12-14] MEDS: FAMOTIDINE 10 MG TABLET PO ×2 (08:21→20:05)
[2019-12-14] MEDS: TAMSULOSIN HCL 0.4 MG CAPSULE PO (08:21)
[2019-12-14] MEDS: ATORVASTATIN 20 MG TABLET PO (08:21)
[2019-12-14 08:25] LABS: Glucose Point of Care 105 (65-105)
--- NOTE | 2019-12-14 09:34 | WPDINTPN ---
Progress Note: A&P Assessment and Plan (1) Acute respiratory failure due to COVID-19: Code(s): U07.1 - COVID-19; J96.00 - Acute respiratory failure, unspecified whether with hypoxia or hypercapnia Status: Acute Assessment and Plan: Acute respiratory failure secondary to COVID-19 with baseline COPD, right lobectomy and history of lung cancer SARS-CoV-2 PCR positive chest x-ray reviewed, continues to be hypoxic on 80% FiO2 and 60 L flow rate on high-flow oxygen therapy Patient is now on Airborne, Droplet and Contact Isolation following inflammatory markers, Dexamethasone started on 12/09/2019 - completed course of Remdesivir Convalscent plasma 1 unit given on 12/08 continue Bronchodilators (2) Pneumothorax: Qualifiers: Pneumothorax type: other pneumothorax Qualified Code(s): J93.83 - Other pneumothorax Code(s): J93.9 - Pneumothorax, unspecified Status: Acute Assessment and Plan: chest x-ray with no change patient has history of lobectomy on the right and this may be chronic. Will continue to monitor. (3) Pulmonary emphysema: Code(s): J43.9 - Emphysema, unspecified Status: Acute Assessment and Plan: steroids and bronchodilators (4) CAD (coronary artery disease): Code(s): I25.10 - Atherosclerotic heart disease of [place] coronary artery without angina pectoris Status: Acute Assessment and Plan: aspirin and statin (5) HLD (hyperlipidemia): Code(s): E78.5 - Hyperlipidemia, unspecified Status: Acute Assessment and Plan: statin (6) HTN (hypertension): Code(s): I10 - Essential (primary) hypertension Status: Acute Assessment and Plan: blood pressure controlled at this time on home verapamil dose (7) DVT prophylaxis: Code(s): Z29.9 - Encounter for prophylactic measures, unspecified Status: Acute Assessment and Plan: Lovenox 40 mg is subcu q.12 hours due to elevated D-dimer (8) Dietary counseling and surveillance: Code(s): Z71.3 - Dietary counseling and surveillance Status: Acute Assessment and Plan: patient tolerating diabetic diet and has a good appetite, no loss of smell or taste stress ulcer prophylaxis: Famotidine Additional Plan discussed with patient at length and updated with his condition and plan of care. Code Status - patient is full code at this time Total Critical Care Time - 32 minutes Due to a high probability of clinically significant, life threatening deterioration, the patient required my highest level of preparedness to intervene emergently and I personally spent this critical care time directly and personally managing the patient. This critical care time included obtaining a history; examining the patient; pulse oximetry; ordering and review of studies; arranging urgent treatment with development of a management plan; evaluation of patient's response to treatment; frequent reassessment; and discussions with other providers. It was exclusive of separately billable procedures and treating other patients and teaching time. Please see Assessment and Plan section and the rest of the note for further information on patient assessment and treatment Subjective Date/time seen: 12/14/19 09:34 Interval history: Reason for consult: Acute respiratory failure due to code, pneumothorax, emphysema 12/13/2018: Patient seen and examined this morning in the ICU. Remains on 80% FiO2 and 60 L flow rate on high-flow therapy. Patient sitting up in the chair a having breakfast. States his appetite is good, does not have any loss of smell or taste, denies any shortness of breath, cough, chest pain, abdominal pain, nausea, vomiting. Continues to complain of weakness. Review of Systems Review of Systems: All systems reviewed & are unremarkable except as noted in HPI and below ( Subjective) Exam Narrative: Exam Narrative: Edwardo
[2019-12-14 11:57] LABS: Glucose Point of Care 109 (65-105)
[2019-12-14] MEDS: CENTRAL LINE FLUSH 10 ML IV PUSH ×2 (13:52→20:07)
--- NOTE | 2019-12-14 15:00 | P.PNIM_ITS ---
Progress Note: A&P Assessment and Plan (1) Acute respiratory failure with hypoxia: Code(s): J96.01 - Acute respiratory failure with hypoxia Status: Acute Assessment and Plan: * Patient with significant oxygen requirement related to COVID complicated by his COPD. * Wean oxygen as tolerated. He still requiring high flow oxygen. * Continue dexamethasone day #6 of 10 * Remdesivir was completed and also received convalescent plasma. Appreciate label pinker input. (2) Pneumothorax: Qualifiers: Pneumothorax type: other pneumothorax Qualified Code(s): J93.83 - Other pneumothorax Code(s): J93.9 - Pneumothorax, unspecified Status: Acute Assessment and Plan: * Chest x-ray showing also a small right apical pneumothorax on admission. * Continue to monitor with serial chest x-rays. 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 (3) COVID-19: Code(s): U07.1 - COVID-19 Status: Acute Assessment and Plan: * Patient is approximately 6 days out from the onset of symptoms (approx 12/05/19). * He tested positive on December 06 for COVID. * Dexamethasone and Remdesivir were started 12/09/19. Convalescent plasma given 12/09/2019. * Inflammatory markers still elevated, on high dose lovenox due to elevated d dimer. (4) Pulmonary emphysema: Code(s): J43.9 - Emphysema, unspecified Status: Acute Assessment and Plan: * Patient has a long history of tobacco use and subsequent emphysema. * Albuterol and Atrovent inhalers have been ordered as needed. * Wean oxygen as tolerated. Continue supportive care (5) HTN (hypertension): Code(s): I10 - Essential (primary) hypertension Status: Acute Assessment and Plan: * Continue verapamil. (6) DVT prophylaxis: Code(s): Z29.9 - Encounter for prophylactic measures, unspecified Status: Acute Assessment and Plan: Lovenox Subjective Date/time seen: Feeling little better, he thinks melatonin helped him rest a little better last night. Still on high flow oxygen. 12/14/19 15:00 Exam Const: General: no acute distress Neck: Neck: supple and no JVD Resp: Auscultation: rhonchi and diminished lung sounds Other: Mild diffuse rhonchi but no wheezing. Cardio: Rate: regular rate Rhythm: regular rhythm Other: No tachycardia GI: Auscultation: normal bowel sounds Other: Non distended. Neuro: Speech: normal speech Motor exam (neuro): 5/5 motor strength present throughout Objective Data Vital Signs Vital Signs: Vital Signs - 24 hr 12/13/19 16:00 12/13/19 18:00 12/13/19 20:00 Temperature 96.8 F L 96.5 F L Pulse Rate 68 70 66 Respiratory Rate 21 H 21 H 19 Blood Pressure 167/87 H 147/86 H 157/100 H Pulse Oximetry 91 96 96 12/13/19 20:27 12/13/19 22:00 12/14/19 00:00 Temperature Pulse Rate 61 59 L 74 Respiratory Rate 18 17 13 Blood Pressure 152/80 H 111/93 H Pulse Oximetry 96 92 90 12/14/19 02:00 12/14/19 04:00 12/14/19 06:00 Temperature Pulse Rate 79 80 70 Respiratory Rate 20 22 H 16 Blood Pressure 144/94 H 154/103 H 163/91 H Pulse Oximetry 91 96 94 12/14/19 08:00 12/14/19 08:50 08
--- NOTE | 2019-12-14 15:00 | PM.IMPN ---
Progress Note: A&P Assessment and Plan (1) Acute respiratory failure with hypoxia: Code(s): J96.01 - Acute respiratory failure with hypoxia Status: Acute Assessment and Plan: Patient with significant oxygen requirement related to COVID complicated by his COPD. Wean oxygen as tolerated. He still requiring high flow oxygen. Continue dexamethasone day #6 of 10 Remdesivir was completed and also received convalescent plasma. Appreciate laser specialist input. (2) Pneumothorax: Qualifiers: Pneumothorax type: other pneumothorax Qualified Code(s): J93.83 - Other pneumothorax Code(s): J93.9 - Pneumothorax, unspecified Status: Acute Assessment and Plan: Chest x-ray showing also a small right apical pneumothorax on admission. Continue to monitor with serial chest x-rays. 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 (3) COVID-19: Code(s): U07.1 - COVID-19 Status: Acute Assessment and Plan: Patient is approximately 6 days out from the onset of symptoms (approx 12/05/19). He tested positive on December 06 for COVID. Dexamethasone and Remdesivir were started 12/09/19. Convalescent plasma given 12/09/2019. Inflammatory markers still elevated, on high dose lovenox due to elevated d dimer. (4) Pulmonary emphysema: Code(s): J43.9 - Emphysema, unspecified Status: Acute Assessment and Plan: Patient has a long history of tobacco use and subsequent emphysema. Albuterol and Atrovent inhalers have been ordered as needed. Wean oxygen as tolerated. Continue supportive care (5) HTN (hypertension): Code(s): I10 - Essential (primary) hypertension Status: Acute Assessment and Plan: Continue verapamil. (6) DVT prophylaxis: Code(s): Z29.9 - Encounter for prophylactic measures, unspecified Status: Acute Assessment and Plan: Lovenox Subjective Date/time seen: Feeling little better, he thinks melatonin helped him rest a little better last night. Still on high flow oxygen. 12/14/19 15:00 Exam Const: General: no acute distress Neck: Neck: supple and no JVD Resp: Auscultation: rhonchi and diminished lung sounds Other: Mild diffuse rhonchi but no wheezing. Cardio: Rate: regular rate Rhythm: regular rhythm Other: No tachycardia GI: Auscultation: normal bowel sounds Other: Non distended. Neuro: Speech: normal speech Motor exam (neuro): 5/5 motor strength present throughout Objective Data Vital Signs Vital Signs: Vital Signs - 24 hr 12/13/19 16:00 12/13/19 18:00 12/13/19 20:00 Temperature 96.8 F L 96.5 F L Pulse Rate 68 70 66 Respiratory Rate 21 H 21 H 19 Blood Pressure 167/87 H 147/86 H 157/100 H Pulse Oximetry 91 96 96 12/13/19 20:27 12/13/19 22:00 12/14/19 00:00 Temperature Pulse Rate 61 59 L 74 Respiratory Rate 18 17 13 Blood Pressure 152/80 H 111/93 H Pulse Oximetry 96 92 90 12/14/19 02:00 12/14/19 04:00 12/14/19 06:00 Temperature Pulse Rate 79 80 70 Respiratory Rate 20 22 H 16 Blood Pressure 144/94 H 154/103 H 163/91 H Pulse Oximetry 91 96 94 12/14/19 08:00 12/14/19 08:50 12/14/19 10:00 Temperature 97.2 F L Pulse Rate 62 77 64 Respiratory Rate 20 20 18 Blood Pressure 165/92 H 105/75 Pulse Oximetry 94 98 92 12/14/19 10:30 12/14/19 12:00 12/14/19 14:00 Temperature 97.3 F L Pulse Rate 80 62 98 Respiratory Rate 20 16 20 Blood Pressure 116/55 L 123/64 Pulse Oximetry 93 93 92 Intake/Output Intake/Output: Intake & Output 12/11/19 12/12/19 12/13/19 12/14/19 23:59 23:59 23:59 23:59 Intake Total 1450 910 810 200 Output Total 1625 1400 1340 1325 Balance -175 -490 -530 -1125 Meds/Results Medications: Active Medications Generic Name Dose Route Start Last Admin Trade Name Shanthi PRN Reason Stop Dose Admin Acetaminophen 650 mg 12/10/19 22:38 12/12/19 22:48 Tylenol Tablet PO 650 mg
[2019-12-14 17:01] LABS: Glucose Point of Care 161 (65-105)
[2019-12-14] MEDS: ALPRAZolam 0.25 MG TABLET PO (20:04)
[2019-12-14] MEDS: MELATONIN 5 MG TABLET PO (20:06)
[2019-12-14 20:16] LABS: Glucose Point of Care 174 (65-105)
[2019-12-15] VITALS (14 sets, daily range): BP systolic 109–147; BP diastolic 67–93; PULSE 59–87; RESP 12–23; TEMP 36.2–36.5; O2SAT 91–100
[2019-12-15] MEDS: CENTRAL LINE FLUSH 10 ML IV PUSH ×3 (04:50→22:34)
[2019-12-15 05:09] LABS: CRP 2.2 mg/dL (<1.0); Lactate Dehydrogenase 1088 U/L (313-618); Phosphorus 4.5 mg/dL (2.5-4.5)
[2019-12-15 05:36] LABS: D Dimer 3.91 ug/mL (<0.48)
[2019-12-15] MEDS: ENOXAPARIN 40 MG/0.4 ML SYRINGE SUB-Q ×2 (09:00→20:23)
[2019-12-15] MEDS: VERAPAMIL HCL 180 MG TABLET ER PO ×2 (09:00→20:23)
[2019-12-15] MEDS: ASPIRIN 81 MG ENTERIC TABLET PO (09:00)
[2019-12-15] MEDS: TAMSULOSIN HCL 0.4 MG CAPSULE PO (09:00)
[2019-12-15] MEDS: FAMOTIDINE 10 MG TABLET PO ×2 (09:00→20:23)
[2019-12-15] MEDS: ATORVASTATIN 20 MG TABLET PO (09:00)
[2019-12-15 09:10] LABS: Glucose Point of Care 104 (65-105)
[2019-12-15] MEDS: polyethylene glycoL 3350 17 GM POWD.PACK PO (10:32)
--- NOTE | 2019-12-15 12:18 | WPDINTPN ---
Progress Note: A&P Assessment and Plan (1) Acute respiratory failure due to COVID-19: Code(s): U07.1 - COVID-19; J96.00 - Acute respiratory failure, unspecified whether with hypoxia or hypercapnia Status: Acute Assessment and Plan: Acute respiratory failure secondary to COVID-19 with baseline COPD, right lobectomy and history of lung cancer SARS-CoV-2 PCR positive chest x-ray reviewed, continues to be hypoxic on 80% FiO2 and 60 L flow rate on high-flow oxygen therapy Patient is now on Airborne, Droplet and Contact Isolation following inflammatory markers, Dexamethasone started on 12/09/2019 - completed course of Remdesivir Convalscent plasma 1 unit given on 12/08 continue Bronchodilators (2) Pneumothorax: Qualifiers: Pneumothorax type: other pneumothorax Qualified Code(s): J93.83 - Other pneumothorax Code(s): J93.9 - Pneumothorax, unspecified Status: Acute Assessment and Plan: chest x-ray with no change patient has history of lobectomy on the right and this may be chronic. Will continue to monitor. (3) Pulmonary emphysema: Code(s): J43.9 - Emphysema, unspecified Status: Acute Assessment and Plan: steroids and bronchodilators (4) CAD (coronary artery disease): Code(s): I25.10 - Atherosclerotic heart disease of [place] coronary artery without angina pectoris Status: Acute Assessment and Plan: aspirin and statin (5) HLD (hyperlipidemia): Code(s): E78.5 - Hyperlipidemia, unspecified Status: Acute Assessment and Plan: statin (6) HTN (hypertension): Code(s): I10 - Essential (primary) hypertension Status: Acute Assessment and Plan: blood pressure controlled at this time on home verapamil dose (7) DVT prophylaxis: Code(s): Z29.9 - Encounter for prophylactic measures, unspecified Status: Acute Assessment and Plan: Lovenox 40 mg is subcu q.12 hours due to elevated D-dimer (8) Dietary counseling and surveillance: Code(s): Z71.3 - Dietary counseling and surveillance Status: Acute Assessment and Plan: patient tolerating diabetic diet and has a good appetite, no loss of smell or taste stress ulcer prophylaxis: Famotidine Additional Plan discussed with patient at length and updated with his condition and plan of care. Code Status - patient is full code at this time Total Critical Care Time - 32 minutes Due to a high probability of clinically significant, life threatening deterioration, the patient required my highest level of preparedness to intervene emergently and I personally spent this critical care time directly and personally managing the patient. This critical care time included obtaining a history; examining the patient; pulse oximetry; ordering and review of studies; arranging urgent treatment with development of a management plan; evaluation of patient's response to treatment; frequent reassessment; and discussions with other providers. It was exclusive of separately billable procedures and treating other patients and teaching time. Please see Assessment and Plan section and the rest of the note for further information on patient assessment and treatment Subjective Date/time seen: 12/15/19 12:18 Interval history: Reason for consult: Acute respiratory failure due to code, pneumothorax, emphysema 12/15/2019: Patient remains on 80% FiO2 and 60 L flow rate. Denies any chest pain, shortness of breath, nausea, vomiting, loss of smell or taste. Patient continues to state he is weak. Patient was upset this morning because he did not get his breakfast and time. Review of Systems Review of Systems: All systems reviewed & are unremarkable except as noted in HPI and below ( Subjective) Exam Narrative: Exam Narrative: General: Pt is alert awake and in NAD Lungs/Chest: Trachea central coarse BS B/L, No crackles or wheezing.
[2019-12-15 13:04] LABS: Glucose Point of Care 128 (65-105)
--- NOTE | 2019-12-15 13:37 | P.PNIM_ITS ---
Progress Note: A&P Assessment and Plan (1) Acute respiratory failure with hypoxia: Code(s): J96.01 - Acute respiratory failure with hypoxia Status: Acute Assessment and Plan: * Patient with significant oxygen requirement related to COVID complicated by his COPD. * Wean oxygen as tolerated. He still requiring high flow oxygen. * Continue dexamethasone day #7 of 10 * Remdesivir was completed and also received convalescent plasma. Appreciate vehicle glass technician input. (2) Pneumothorax: Qualifiers: Pneumothorax type: other pneumothorax Qualified Code(s): J93.83 - Other pneumothorax Code(s): J93.9 - Pneumothorax, unspecified Status: Acute Assessment and Plan: * Chest x-ray showing also a small right apical pneumothorax on admission. * Continue to monitor with serial chest x-rays. 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 (3) COVID-19: Code(s): U07.1 - COVID-19 Status: Acute Assessment and Plan: * He tested positive on December 06 for COVID. * Dexamethasone and Remdesivir were started 12/09/19. Convalescent plasma given 12/09/2019. * Inflammatory markers still elevated, on high dose lovenox due to elevated d dimer. * He may have a long recovery ahead of him I explained that in detail. (4) Pulmonary emphysema: Code(s): J43.9 - Emphysema, unspecified Status: Acute Assessment and Plan: * Patient has a long history of tobacco use and subsequent emphysema. * Albuterol and Atrovent inhalers have been ordered as needed. * Wean oxygen as tolerated. Continue supportive care (5) HTN (hypertension): Code(s): I10 - Essential (primary) hypertension Status: Acute Assessment and Plan: * Continue verapamil. (6) DVT prophylaxis: Code(s): Z29.9 - Encounter for prophylactic measures, unspecified Status: Acute Assessment and Plan: Lovenox Subjective Date/time seen: No new complains, he feels better but still requiring high flow oxygen. I explained to him that his recovery might take several weeks. 12/15/19 13:37 Review of Systems Review of Systems: All systems reviewed & are unremarkable except as noted in HPI and below Exam Const: General: no acute distress Neck: Neck: supple and no JVD Resp: Auscultation: rhonchi and diminished lung sounds Other: Mild diffuse rhonchi but no wheezing. Cardio: Rate: regular rate Rhythm: regular rhythm Other: No tachycardia GI: Auscultation: normal bowel sounds Other: Non distended. Neuro: Speech: normal speech Motor exam (neuro): 5/5 motor strength present throughout Objective Data Vital Signs Vital Signs: Vital Signs - 24 hr 12/14/19 14:00 12/14/19 16:00 12/14/19 18:00 Temperature 97.2 F L Pulse Rate 82 60 78 Respiratory Rate 20 18 22 H Blood Pressure 123/64 118/65 125/91 H Pulse Oximetry 88 L 93 98 12/14/19 20:00 12/14/19 20:15 12/14/19 22:00 Temperature 97.5 F L Pulse Rate 80 69 59 L Respiratory Rate 24 H 20 19 Blood Pressure 127/86 161/88 H Pulse Oximetry 96 89 L 99 12/14/19 23:51 12/15/19 00:00 12/15/19 02:00 Temperature 97.7 F Pulse Rate 63 59 L Respiratory Rate 17 20
--- NOTE | 2019-12-15 13:37 | PM.IMPN ---
Progress Note: A&P Assessment and Plan (1) Acute respiratory failure with hypoxia: Code(s): J96.01 - Acute respiratory failure with hypoxia Status: Acute Assessment and Plan: Patient with significant oxygen requirement related to COVID complicated by his COPD. Wean oxygen as tolerated. He still requiring high flow oxygen. Continue dexamethasone day #7 of 10 Remdesivir was completed and also received convalescent plasma. Appreciate home theater installer input. (2) Pneumothorax: Qualifiers: Pneumothorax type: other pneumothorax Qualified Code(s): J93.83 - Other pneumothorax Code(s): J93.9 - Pneumothorax, unspecified Status: Acute Assessment and Plan: Chest x-ray showing also a small right apical pneumothorax on admission. Continue to monitor with serial chest x-rays. 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 (3) COVID-19: Code(s): U07.1 - COVID-19 Status: Acute Assessment and Plan: He tested positive on December 06 for COVID. Dexamethasone and Remdesivir were started 12/09/19. Convalescent plasma given 12/09/2019. Inflammatory markers still elevated, on high dose lovenox due to elevated d dimer. He may have a long recovery ahead of him I explained that in detail. (4) Pulmonary emphysema: Code(s): J43.9 - Emphysema, unspecified Status: Acute Assessment and Plan: Patient has a long history of tobacco use and subsequent emphysema. Albuterol and Atrovent inhalers have been ordered as needed. Wean oxygen as tolerated. Continue supportive care (5) HTN (hypertension): Code(s): I10 - Essential (primary) hypertension Status: Acute Assessment and Plan: Continue verapamil. (6) DVT prophylaxis: Code(s): Z29.9 - Encounter for prophylactic measures, unspecified Status: Acute Assessment and Plan: Lovenox Subjective Date/time seen: No new complains, he feels better but still requiring high flow oxygen. I explained to him that his recovery might take several weeks. 12/15/19 13:37 Review of Systems Review of Systems: All systems reviewed & are unremarkable except as noted in HPI and below Exam Const: General: no acute distress Neck: Neck: supple and no JVD Resp: Auscultation: rhonchi and diminished lung sounds Other: Mild diffuse rhonchi but no wheezing. Cardio: Rate: regular rate Rhythm: regular rhythm Other: No tachycardia GI: Auscultation: normal bowel sounds Other: Non distended. Neuro: Speech: normal speech Motor exam (neuro): 5/5 motor strength present throughout Objective Data Vital Signs Vital Signs: Vital Signs - 24 hr 12/14/19 14:00 12/14/19 16:00 12/14/19 18:00 Temperature 97.2 F L Pulse Rate 82 60 78 Respiratory Rate 20 18 22 H Blood Pressure 123/64 118/65 125/91 H Pulse Oximetry 88 L 93 98 12/14/19 20:00 12/14/19 20:15 12/14/19 22:00 Temperature 97.5 F L Pulse Rate 80 69 59 L Respiratory Rate 24 H 20 19 Blood Pressure 127/86 161/88 H Pulse Oximetry 96 89 L 99 12/14/19 23:51 12/15/19 00:00 12/15/19 02:00 Temperature 97.7 F Pulse Rate 63 59 L Respiratory Rate 17 20 Blood Pressure 147/86 H 141/78 H Pulse Oximetry 88 L 91 93 12/15/19 02:22 12/15/19 04:00 12/15/19 06:00 Temperature 97.4 F L Pulse Rate 65 66 67 Respiratory Rate 18 16 15 Blood Pressure 130/71 126/67 Pulse Oximetry 92 98 95 12/15/19 08:00 12/15/19 10:00 12/15/19 12:00 Temperature 97.2 F L 97.2 F L Pulse Rate 72 84 86 Respiratory Rate 23 H 20 21 H Blood Pressure 144/82 H 109/72 147/81 H Pulse Oximetry 92 100 94 Intake/Output Intake/Output: Intake & Output 12/12/19 12/13/19 12/14/19 12/15/19 23:59 23:59 23:59 23:59 Intake Total 910 810 500 745 Output Total 1400 1340 1450 1000 Balance -490 -530 -950 -255 Meds/Results Medications: Active Medications Generic Name Dose Route Start Last Adm
[2019-12-15 16:52] LABS: Glucose Point of Care 122 (65-105)
[2019-12-15] MEDS: ACETAMINOPHEN 325 MG TABLET 650 MG PO (20:22)
[2019-12-15] MEDS: ALPRAZolam 0.25 MG TABLET PO (20:23)
[2019-12-15] MEDS: MELATONIN 5 MG TABLET PO (20:23)
[2019-12-15 20:42] LABS: Glucose Point of Care 151 (65-105)
[2019-12-16] VITALS (17 sets, daily range): BP systolic 106–167; BP diastolic 65–97; PULSE 56–79; RESP 10–35; TEMP 35.8–36.4; O2SAT 88–98; BMI 24.9
[2019-12-16 04:59] LABS: Hematocrit 38.3 % (42.0-52.0); Hemoglobin 12.5 g/dL (14.0-18.0); Mean Corpuscular HGB Conc 32.6 g/dl (32-36); Mean Corpuscular Hemoglobin 28.5 pg (26-34); Mean Corpuscular Volume 87.2 fl (80-100); Mean Platelet Volume 9.7 fl (7.4-10.4); Platelet Count Result 369 k/mm3 (150-375); Red Blood Count 4.39 M/mm3 (4.6-6.20); Red Cell Distribution Width 14.6 % (11.5-14.5); White Blood Count 15.1 K/mm3 (4.5-10.0)
[2019-12-16 05:14] LABS: Anion Gap 5 mmol/L (8-16); Blood Urea Nitrogen 22 mg/dL (9-20); Calcium 7.8 mg/dL (8.4-10.2); Carbon Dioxide 28 mmol/L (22-30); Chloride 101 mmol/L (98-107); Estimated CRCL calculation 89 ml/min; Estimated Glomerular Filt Rate > 60; Glucose 122 mg/dL (75-110); Phosphorus 3.8 mg/dL (2.5-4.5); Potassium 3.9 mmol/L (3.4-5.0); Sodium 134 mmol/L (137-145)
[2019-12-16] MEDS: CENTRAL LINE FLUSH 10 ML IV PUSH ×3 (05:45→23:44)
[2019-12-16 08:01] LABS: Glucose Point of Care 102 (65-105)
[2019-12-16] MEDS: FAMOTIDINE 10 MG TABLET PO ×2 (08:37→20:39)
[2019-12-16] MEDS: VERAPAMIL HCL 180 MG TABLET ER PO ×2 (08:37→20:39)
[2019-12-16] MEDS: TAMSULOSIN HCL 0.4 MG CAPSULE PO (08:37)
[2019-12-16] MEDS: ASPIRIN 81 MG ENTERIC TABLET PO (08:37)
[2019-12-16] MEDS: polyethylene glycoL 3350 17 GM POWD.PACK PO (08:37)
[2019-12-16] MEDS: ATORVASTATIN 20 MG TABLET PO (08:37)
[2019-12-16] MEDS: ENOXAPARIN 40 MG/0.4 ML SYRINGE SUB-Q ×2 (10:23→20:39)
[2019-12-16] MEDS: ALPRAZolam 0.25 MG TABLET PO ×2 (10:23→20:38)
--- NOTE | 2019-12-16 12:08 | WPDINTPN ---
Progress Note: A&P Assessment and Plan (1) Acute respiratory failure due to COVID-19: Code(s): U07.1 - COVID-19; J96.00 - Acute respiratory failure, unspecified whether with hypoxia or hypercapnia Status: Acute Assessment and Plan: Acute respiratory failure secondary to COVID-19 with baseline COPD, right lobectomy and history of lung cancer SARS-CoV-2 PCR positive chest x-ray reviewed, continues to be hypoxic on 80% FiO2 and 60 L flow rate on high-flow oxygen therapy Patient is now on Airborne, Droplet and Contact Isolation following inflammatory markers, Dexamethasone started on 12/09/2019 - completed course of Remdesivir Convalscent plasma 1 unit given on 12/08 continue Bronchodilators (2) Pneumothorax: Qualifiers: Pneumothorax type: other pneumothorax Qualified Code(s): J93.83 - Other pneumothorax Code(s): J93.9 - Pneumothorax, unspecified Status: Acute Assessment and Plan: chest x-ray with no change patient has history of lobectomy on the right and this may be chronic. Will continue to monitor. (3) Pulmonary emphysema: Code(s): J43.9 - Emphysema, unspecified Status: Acute Assessment and Plan: steroids and bronchodilators (4) CAD (coronary artery disease): Code(s): I25.10 - Atherosclerotic heart disease of [place] coronary artery without angina pectoris Status: Acute Assessment and Plan: aspirin and statin (5) HLD (hyperlipidemia): Code(s): E78.5 - Hyperlipidemia, unspecified Status: Acute Assessment and Plan: statin (6) HTN (hypertension): Code(s): I10 - Essential (primary) hypertension Status: Acute Assessment and Plan: blood pressure controlled at this time on home verapamil dose (7) DVT prophylaxis: Code(s): Z29.9 - Encounter for prophylactic measures, unspecified Status: Acute Assessment and Plan: Lovenox 40 mg is subcu q.12 hours due to elevated D-dimer (8) Dietary counseling and surveillance: Code(s): Z71.3 - Dietary counseling and surveillance Status: Acute Assessment and Plan: patient tolerating diabetic diet and has a good appetite, no loss of smell or taste - contipation: on Miralax stress ulcer prophylaxis: Famotidine Additional Plan discussed with patient at length and updated with his condition and plan of care. Code Status - patient is full code at this time Total Critical Care Time - 32 minutes Due to a high probability of clinically significant, life threatening deterioration, the patient required my highest level of preparedness to intervene emergently and I personally spent this critical care time directly and personally managing the patient. This critical care time included obtaining a history; examining the patient; pulse oximetry; ordering and review of studies; arranging urgent treatment with development of a management plan; evaluation of patient's response to treatment; frequent reassessment; and discussions with other providers. It was exclusive of separately billable procedures and treating other patients and teaching time. Please see Assessment and Plan section and the rest of the note for further information on patient assessment and treatment Subjective Date/time seen: 12/16/19 12:08 Interval history: Reason for consult: Acute respiratory failure due to code, pneumothorax, emphysema 12/16/2019: Pt complains of being anxious, no other complains. Good UO, Afebrile, Good appetite. On 65% FiO2 and 50 L flow rate - denies any SOB, cough, chets pain, nausea or vomiting Review of Systems Review of Systems: All systems reviewed & are unremarkable except as noted in HPI and below ( Subjective) Exam Narrative: Exam Narrative: General: Pt is alert awake and in NAD Lungs/Chest: Trachea central coarse BS B/L, No crackles or wheezing. Cardiac: RRR. Normal S1 S2. No murmurs Circulation: Peda
[2019-12-16 12:42] LABS: Glucose Point of Care 103 (65-105)
--- NOTE | 2019-12-16 16:58 | PM.IMPN ---
Progress Note: A&P Assessment and Plan (1) Acute respiratory failure with hypoxia: Code(s): J96.01 - Acute respiratory failure with hypoxia Status: Acute Assessment and Plan: Patient with significant oxygen requirement related to COVID complicated by his COPD. Wean oxygen as tolerated. He still requiring high flow oxygen. Continue dexamethasone day #8 of 10 Remdesivir was completed and also received convalescent plasma. (2) Pneumothorax: Qualifiers: Pneumothorax type: other pneumothorax Qualified Code(s): J93.83 - Other pneumothorax Code(s): J93.9 - Pneumothorax, unspecified Status: Acute Assessment and Plan: Chest x-ray showing also a small right apical pneumothorax on admission. Continue to monitor with serial chest x-rays. 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 (3) COVID-19: Code(s): U07.1 - COVID-19 Status: Acute Assessment and Plan: He tested positive on December 06 for COVID. Dexamethasone and Remdesivir were started 12/09/19. Convalescent plasma given 12/09/2019. Inflammatory markers still elevated, on high dose lovenox due to elevated d dimer. (4) Pulmonary emphysema: Code(s): J43.9 - Emphysema, unspecified Status: Acute Assessment and Plan: Patient has a long history of tobacco use and subsequent emphysema. Albuterol and Atrovent inhalers have been ordered as needed. Wean oxygen as tolerated. Continue supportive care (5) HTN (hypertension): Code(s): I10 - Essential (primary) hypertension Status: Acute Assessment and Plan: Continue verapamil. (6) DVT prophylaxis: Code(s): Z29.9 - Encounter for prophylactic measures, unspecified Status: Acute Assessment and Plan: Lovenox Subjective Date/time seen: 12/16/19 16:58 Interval history: date of visit 12/15. 79yo male with COPD and recently diagnosed with COVID here for acute respiratory. Feels fair and can't understand awake cannot go home. Minimal feelings of SOB or CAPELLAN when getting up to the chair. No n/v. No CP. Exam Narrative: Exam Narrative: AF 96.1 136/86 78 22 98% Gen - NARD sitting up in bed Chest - improved air exchange, less rhonchi CV - RRR S1-S2. Abd - soft, NT/ND, +BS Ext - no pedal edema. Psych - normal mood and affect. Patient is pleasant and cooperative. Skin - warm and dry. Objective Data Vital Signs Vital Signs: Vital Signs - 24 hr 12/15/19 18:00 12/15/19 20:00 12/15/19 20:26 Temperature 36.3 C L Pulse Rate 87 71 77 Respiratory Rate 21 H 19 18 Blood Pressure 134/82 131/89 Pulse Oximetry 100 99 99 12/15/19 22:00 12/16/19 00:00 12/16/19 02:00 Temperature 36.4 C Pulse Rate 71 75 69 Respiratory Rate 12 10 L 11 L Blood Pressure 133/93 H 110/65 106/67 Pulse Oximetry 98 98 98 12/16/19 04:00 12/16/19 06:00 12/16/19 07:46 Temperature 36.4 C 35.8 C L Pulse Rate 69 56 L 69 Respiratory Rate 14 12 20 Blood Pressure 124/73 131/75 167/97 H Pulse Oximetry 88 L 95 94 12/16/19 08:00 12/16/19 08:04 12/16/19 10:00 Temperature Pulse Rate 79 76 78 Respiratory Rate 35 H 22 H Blood Pressure 131/83 Pulse Oximetry 92 90 12/16/19 12:00 12/16/19 14:00 12/16/19 14:16 Temperature Pulse Rate 72 69 77 Respiratory Rate 20 20 22 H Blood Pressure 133/76 124/75 Pulse Oximetry 90 91 92 12/16/19 16:00 Temperature 36.1 C L Pulse Rate 78 Respiratory Rate 18 Blood Pressure 135/89 Pulse Oximetry 98 Intake/Output Intake/Output: Intake & Output 12/13/19 12/14/19 12/15/19 12/16/19 23:59 23:59 23:59 23:59 Intake Total 198 120 8639 960 Output Total 1340 1450 1200 1350 Balance -285 -950 -155 -390 Meds/Results Medications: Active Medications Generic Name Dose Route Start Last Admin Trade Name Freq PRN Reason Stop Dose Admin Acetaminophen 650 mg 12/10/19 22:38 12/15/19 20:22 Tylenol T
[2019-12-16 19:15] LABS: Glucose Point of Care 138 (65-105)
[2019-12-16] MEDS: MELATONIN 5 MG TABLET PO (20:38)
[2019-12-16] MEDS: ACETAMINOPHEN 325 MG TABLET 650 MG PO (20:39)
[2019-12-16 20:58] LABS: Glucose Point of Care 205 (65-105)
[2019-12-17] VITALS (19 sets, daily range): BP systolic 115–145; BP diastolic 74–93; PULSE 57–86; RESP 11–28; TEMP 35.7–36.2; O2SAT 10–100
[2019-12-17] MEDS: CENTRAL LINE FLUSH 10 ML IV PUSH ×3 (06:13→20:58)
[2019-12-17 06:21] LABS: Hematocrit 37.2 % (42.0-52.0); Mean Corpuscular HGB Conc 32.3 g/dl (32-36); Mean Corpuscular Hemoglobin 28.6 pg (26-34); Mean Corpuscular Volume 88.8 fl (80-100); Mean Platelet Volume 9.9 fl (7.4-10.4); Platelet Count Result 375 k/mm3 (150-375); Red Blood Count 4.19 M/mm3 (4.6-6.20); Red Cell Distribution Width 14.6 % (11.5-14.5); White Blood Count 14.8 K/mm3 (4.5-10.0)
[2019-12-17 06:34] LABS: Anion Gap 5 mmol/L (8-16); Blood Urea Nitrogen 21 mg/dL (9-20); Carbon Dioxide 29 mmol/L (22-30); Chloride 100 mmol/L (98-107); Estimated CRCL calculation 89 ml/min; Estimated Glomerular Filt Rate > 60; Glucose 145 mg/dL (75-110); Potassium 4.1 mmol/L (3.4-5.0); Sodium 134 mmol/L (137-145)
[2019-12-17 06:36] LABS: CRP 1.4 mg/dL (<1.0); D Dimer 3.77 ug/mL (<0.48); Lactate Dehydrogenase 884 U/L (313-618); Phosphorus 3.8 mg/dL (2.5-4.5)
[2019-12-17] MEDS: ASPIRIN 81 MG ENTERIC TABLET PO (08:20)
[2019-12-17] MEDS: FAMOTIDINE 10 MG TABLET PO ×2 (08:20→20:57)
[2019-12-17] MEDS: VERAPAMIL HCL 180 MG TABLET ER PO ×2 (08:20→20:57)
[2019-12-17] MEDS: TAMSULOSIN HCL 0.4 MG CAPSULE PO (08:20)
[2019-12-17] MEDS: ATORVASTATIN 20 MG TABLET PO (08:20)
[2019-12-17] MEDS: ENOXAPARIN 40 MG/0.4 ML SYRINGE SUB-Q ×2 (08:21→20:57)
[2019-12-17] MEDS: polyethylene glycoL 3350 17 GM POWD.PACK PO (08:21)
--- NOTE | 2019-12-17 11:37 | PCDIET ---
ICU Rounding Note: Patient consumed 80-100% of meals on 12/16/19 + Glucerna. Continues on diabetic, easy to chew diet with Glucerna Shake BID. Last recorded weight is 79.9kg which is increased from last review. Bowel Motility: No BM x 4 days, per RN. Patient on Miralax. MD states will add another medication if no BM today. Labs Reviewed: Hgb (12.0), Hct (37.2), Glu (145), BUN (21), Cr (0.6), Na (134), Ca (8.0) Meds Noted: Albuterol, Tums, Decadron, Pepcid, Novolog, Atrovent, Miralax Additional Notes: No reported skin breakdown. Following daily in ICU rounds. Assessing/reassessing every 5 days.
[2019-12-17 12:25] LABS: Glucose Point of Care 101 (65-105)
[2019-12-17 12:26] LABS: Glucose Point of Care 117 (65-105)
[2019-12-17] MEDS: ACETAMINOPHEN 325 MG TABLET 650 MG PO ×2 (13:00→20:58)
--- NOTE | 2019-12-17 13:13 | WPDINTPN ---
Progress Note: A&P Assessment and Plan (1) Acute respiratory failure due to COVID-19: Code(s): U07.1 - COVID-19; J96.00 - Acute respiratory failure, unspecified whether with hypoxia or hypercapnia Status: Acute Assessment and Plan: Acute respiratory failure secondary to COVID-19 with baseline COPD, right lobectomy and history of lung cancer SARS-CoV-2 PCR positive chest x-ray reviewed, continues to be hypoxic on 80% FiO2 and 60 L flow rate on high-flow oxygen therapy Patient is now on Airborne, Droplet and Contact Isolation following inflammatory markers, Dexamethasone started on 12/09/2019 - completed course of Remdesivir Convalscent plasma 1 unit given on 12/08 continue Bronchodilators (2) Pneumothorax: Qualifiers: Pneumothorax type: other pneumothorax Qualified Code(s): J93.83 - Other pneumothorax Code(s): J93.9 - Pneumothorax, unspecified Status: Acute Assessment and Plan: chest x-ray with no change patient has history of lobectomy on the right and this may be chronic. Will continue to monitor. (3) Pulmonary emphysema: Code(s): J43.9 - Emphysema, unspecified Status: Acute Assessment and Plan: steroids and bronchodilators (4) CAD (coronary artery disease): Code(s): I25.10 - Atherosclerotic heart disease of [place] coronary artery without angina pectoris Status: Acute Assessment and Plan: aspirin and statin (5) HLD (hyperlipidemia): Code(s): E78.5 - Hyperlipidemia, unspecified Status: Acute Assessment and Plan: statin (6) HTN (hypertension): Code(s): I10 - Essential (primary) hypertension Status: Acute Assessment and Plan: blood pressure controlled at this time on home verapamil dose (7) DVT prophylaxis: Code(s): Z29.9 - Encounter for prophylactic measures, unspecified Status: Acute Assessment and Plan: Lovenox 40 mg is subcu q.12 hours due to elevated D-dimer (8) Dietary counseling and surveillance: Code(s): Z71.3 - Dietary counseling and surveillance Status: Acute Assessment and Plan: patient tolerating diabetic diet and has a good appetite, no loss of smell or taste - contipation: on Miralax stress ulcer prophylaxis: Famotidine Additional Plan discussed with patient at length and updated with his condition and plan of care. Code Status - patient is full code at this time Total Critical Care Time - 32 minutes Due to a high probability of clinically significant, life threatening deterioration, the patient required my highest level of preparedness to intervene emergently and I personally spent this critical care time directly and personally managing the patient. This critical care time included obtaining a history; examining the patient; pulse oximetry; ordering and review of studies; arranging urgent treatment with development of a management plan; evaluation of patient's response to treatment; frequent reassessment; and discussions with other providers. It was exclusive of separately billable procedures and treating other patients and teaching time. Please see Assessment and Plan section and the rest of the note for further information on patient assessment and treatment Subjective Date/time seen: 12/17/19 13:13 Interval history: Reason for consult: Acute respiratory failure due to code, pneumothorax, emphysema 12/17/2019: Patient on 80% FiO2 and 50 L flow rate. Patient desaturates when he lays on the bed and does better chair. Patient's appetite has been good, hemodynamically stable, urine output adequate, afebrile. Denies any chest pain, shortness of breath, abdominal pain, nausea vomiting. patient stated he wanted to be transferred to [facility] or [facility], he stated just because they are larger [facility] center's they may have some advanced treatment for him. after some time he t
--- NOTE | 2019-12-17 17:42 | PM.IMPN ---
Progress Note: A&P Assessment and Plan (1) Acute respiratory failure with hypoxia: Code(s): J96.01 - Acute respiratory failure with hypoxia Status: Acute Assessment and Plan: Patient with significant oxygen requirement related to COVID complicated by his COPD. Wean oxygen as tolerated. He still requiring high flow oxygen. Continue dexamethasone day #9 of 10 Remdesivir was completed and also received convalescent plasma. (2) Pneumothorax: Qualifiers: Pneumothorax type: other pneumothorax Qualified Code(s): J93.83 - Other pneumothorax Code(s): J93.9 - Pneumothorax, unspecified Status: Acute Assessment and Plan: Chest x-ray showing also a small right apical pneumothorax on admission. Continue to monitor with serial chest x-rays. 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 (3) COVID-19: Code(s): U07.1 - COVID-19 Status: Acute Assessment and Plan: He tested positive on December 06 for COVID. Dexamethasone and Remdesivir were started 12/09/19. Convalescent plasma given 12/09/2019. Inflammatory markers still elevated but falling, on bid lovenox due to elevated d dimer. (4) Pulmonary emphysema: Code(s): J43.9 - Emphysema, unspecified Status: Acute Assessment and Plan: Patient has a long history of tobacco use and subsequent emphysema. Albuterol and Atrovent inhalers have been ordered as needed. Wean oxygen as tolerated. Continue supportive care (5) HTN (hypertension): Code(s): I10 - Essential (primary) hypertension Status: Acute Assessment and Plan: Continue verapamil. (6) DVT prophylaxis: Code(s): Z29.9 - Encounter for prophylactic measures, unspecified Status: Acute Assessment and Plan: Lovenox Subjective Date/time seen: 12/17/19 17:42 Interval history: date of visit 12/16. 79yo male with COPD and recently diagnosed with COVID here for acute respiratory. Feels fair with complaints of leg pain . Minimal feelings of SOB or CAPELLAN when getting up to the chair. No n/v. No CP. Exam Narrative: Exam Narrative: AF 96.1 142/84 60 22 98% high flow 50 at 75% NC Gen - NARD sitting up in bed Chest - improved air exchange, less rhonchi CV - RRR S1-S2. Abd - soft, NT/ND, +BS Ext - no pedal edema. DP. PT 2+ and no tenderness to palpation Psych - normal mood and affect. Patient is pleasant and cooperative. Skin - warm and dry. Objective Data Vital Signs Vital Signs: Vital Signs - 24 hr 12/16/19 18:00 12/16/19 20:00 12/16/19 20:21 Temperature 35.9 C L Pulse Rate 72 57 L 69 Respiratory Rate 24 H 14 22 H Blood Pressure 149/85 H Pulse Oximetry 92 91 93 12/16/19 20:30 12/16/19 22:00 12/17/19 00:00 Temperature 36.0 C L Pulse Rate 59 L 57 L Respiratory Rate 20 16 Blood Pressure 128/83 137/82 141/77 H Pulse Oximetry 94 92 12/17/19 02:00 12/17/19 04:00 12/17/19 06:00 Temperature 36.0 C L Pulse Rate 57 L 71 65 Respiratory Rate 12 19 20 Blood Pressure 145/93 H 134/74 136/76 Pulse Oximetry 97 96 10 L 12/17/19 08:00 12/17/19 09:02 12/17/19 10:00 Temperature 35.8 C L Pulse Rate 76 78 68 Respiratory Rate 26 H 24 H 11 L Blood Pressure 131/81 123/77 Pulse Oximetry 100 97 97 12/17/19 10:17 12/17/19 12:00 12/17/19 14:00 Temperature 35.7 C L Pulse Rate 73 81 73 Respiratory Rate 24 H 16 Blood Pressure 124/79 Pulse Oximetry 96 100 12/17/19 14:01 12/17/19 16:00 12/17/19 16:01 Temperature 36.1 C L Pulse Rate 67 63 60 Respiratory Rate 19 20 Blood Pressure 136/79 142/84 H Pulse Oximetry 94 100 97 12/17/19 17:16 Temperature Pulse Rate 86 Respiratory Rate Blood Pressure Pulse Oximetry 97 Intake/Output Intake/Output: Intake & Output 12/14/19 12/15/19 12/16/19 12/17/19 23:59 23:59 23:59 23:59 Intake Total 500 1045 1680 1190 Output Total 1450 1200 1500 1240 Balance
[2019-12-17 18:03] LABS: Glucose Point of Care 122 (65-105)
[2019-12-17] MEDS: ALPRAZolam 0.25 MG TABLET PO (20:57)
[2019-12-17] MEDS: MELATONIN 5 MG TABLET PO (21:01)
[2019-12-17 21:14] LABS: Glucose Point of Care 163 (65-105)
[2019-12-18] VITALS (17 sets, daily range): BP systolic 104–145; BP diastolic 66–94; PULSE 70–87; RESP 14–21; TEMP 35.5–36.3; O2SAT 82–100
[2019-12-18] MEDS: ACETAMINOPHEN 325 MG TABLET 650 MG PO ×3 (02:53→18:06)
[2019-12-18 04:40] LABS: Alveolar/Arterial O2 Gradient 617.2 mmHg; Base Excess ABG 1.2 mEq/l (+/-2.0); Carboxyhemoglobin 0.3 % THb (0-2.0); Fractional Inspired Oxygen 100 %; HCO3 ABG 25.1 mEq/l (22.0-26.0); Methemoglobin ABG 0.2 %THb (0-1.5); Oxygen Saturation ABG 91.4 % (95.0-100.0); Oxyhemoglobin 88.4 % THb (90.0-100.0); PCO2 ABG 37.5 mmHg (35.0-45.0); PO2 ABG 58.3 mmHg (80.0-100.0); PO2 FiO2 Ratio Arterial Blood 0.58 %; Reduced Hemoglobin 11.1 %THb (0-5.0); Total Hemoglobin 12.9 g/dL (12.0-18.0); pH ABG 7.444 (7.350-7.450)
[2019-12-18 04:43] LABS: Modified Allen's Test Pass; Site Drawn RIGHT RADIAL
[2019-12-18 04:44] LABS: Device HIGH FLOW THERAPY
[2019-12-18] MEDS: CENTRAL LINE FLUSH 10 ML IV PUSH ×3 (05:13→21:51)
[2019-12-18 06:03] LABS: Hematocrit 37.6 % (42.0-52.0); Hemoglobin 12.2 g/dL (14.0-18.0); Mean Corpuscular HGB Conc 32.4 g/dl (32-36); Mean Corpuscular Hemoglobin 28.9 pg (26-34); Mean Corpuscular Volume 89.1 fl (80-100); Mean Platelet Volume 10.1 fl (7.4-10.4); Platelet Count Result 334 k/mm3 (150-375); Red Blood Count 4.22 M/mm3 (4.6-6.20); Red Cell Distribution Width 14.8 % (11.5-14.5); White Blood Count 15.7 K/mm3 (4.5-10.0)
[2019-12-18 06:13] LABS: Anion Gap 6 mmol/L (8-16); Blood Urea Nitrogen 19 mg/dL (9-20); CRP 1.5 mg/dL (<1.0); Calcium 7.7 mg/dL (8.4-10.2); Carbon Dioxide 29 mmol/L (22-30); Chloride 101 mmol/L (98-107); Estimated CRCL calculation 89 ml/min; Estimated Glomerular Filt Rate > 60; Glucose 146 mg/dL (75-110); Magnesium 2.3 mg/dL (1.6-2.3); Phosphorus 3.5 mg/dL (2.5-4.5); Sodium 136 mmol/L (137-145)
[2019-12-18 07:04] LABS: Band Neutrophils Percent 1 % (0-6); Lymphocytes Absolute Manual 0.78 K/mm3 (1.1-4.5); Monocytes Absolute Manual 0.47 K/mm3 (0.1-0.90); Monocytes Percent Manual 3 % (3-9); Neutrophils Absolute Manual 14.44 K/mm3 (1.3-6.7); Neutrophils Percent Manual 91 % (46-73); Total Cells Counted 100
[2019-12-18 07:05] LABS: Ovalocytes 1+ (NORMAL); Platelet Estimate Adequate (Adequate)
[2019-12-18] MEDS: VERAPAMIL HCL 180 MG TABLET ER PO ×2 (08:49→21:49)
[2019-12-18] MEDS: ATORVASTATIN 20 MG TABLET PO (08:49)
[2019-12-18] MEDS: FAMOTIDINE 10 MG TABLET PO ×2 (08:49→21:49)
[2019-12-18] MEDS: ENOXAPARIN 40 MG/0.4 ML SYRINGE SUB-Q ×2 (08:50→21:49)
[2019-12-18] MEDS: TAMSULOSIN HCL 0.4 MG CAPSULE PO (08:50)
[2019-12-18] MEDS: ASPIRIN 81 MG ENTERIC TABLET PO (08:50)
[2019-12-18] MEDS: polyethylene glycoL 3350 17 GM POWD.PACK PO (08:51)
[2019-12-18] MEDS: ALPRAZolam 0.25 MG TABLET PO ×2 (08:59→17:54)
[2019-12-18 09:28] LABS: Glucose Point of Care 85 (65-105)
--- NOTE | 2019-12-18 12:10 | WPDINTPN ---
Progress Note: A&P Assessment and Plan (1) Acute respiratory failure due to COVID-19: Code(s): U07.1 - COVID-19; J96.00 - Acute respiratory failure, unspecified whether with hypoxia or hypercapnia Status: Acute Assessment and Plan: Acute respiratory failure secondary to COVID-19 with baseline COPD, right lobectomy and history of lung cancer SARS-CoV-2 PCR positive chest x-ray reviewed, continues to be hypoxic on 80% FiO2 and 60 L flow rate on high-flow oxygen therapy Patient is now on Airborne, Droplet and Contact Isolation following inflammatory markers, Dexamethasone started on 12/09/2019 - completed course of Remdesivir Convalscent plasma 1 unit given on 12/08 continue Bronchodilators (2) Pneumothorax: Qualifiers: Pneumothorax type: other pneumothorax Qualified Code(s): J93.83 - Other pneumothorax Code(s): J93.9 - Pneumothorax, unspecified Status: Acute Assessment and Plan: chest x-ray with no change patient has history of lobectomy on the right and this may be chronic. Will continue to monitor. (3) Pulmonary emphysema: Code(s): J43.9 - Emphysema, unspecified Status: Acute Assessment and Plan: steroids and bronchodilators (4) CAD (coronary artery disease): Code(s): I25.10 - Atherosclerotic heart disease of [place] coronary artery without angina pectoris Status: Acute Assessment and Plan: aspirin and statin (5) HLD (hyperlipidemia): Code(s): E78.5 - Hyperlipidemia, unspecified Status: Acute Assessment and Plan: statin (6) HTN (hypertension): Code(s): I10 - Essential (primary) hypertension Status: Acute Assessment and Plan: blood pressure controlled at this time on home verapamil dose (7) DVT prophylaxis: Code(s): Z29.9 - Encounter for prophylactic measures, unspecified Status: Acute Assessment and Plan: Lovenox 40 mg is subcu q.12 hours due to elevated D-dimer (8) Dietary counseling and surveillance: Code(s): Z71.3 - Dietary counseling and surveillance Status: Acute Assessment and Plan: patient tolerating diabetic diet and has a good appetite, no loss of smell or taste - contipation: on Miralax stress ulcer prophylaxis: Famotidine Additional Plan discussed with patient at length and updated with his condition and plan of care. Code Status - patient is full code at this time Total Critical Care Time - 31 minutes Due to a high probability of clinically significant, life threatening deterioration, the patient required my highest level of preparedness to intervene emergently and I personally spent this critical care time directly and personally managing the patient. This critical care time included obtaining a history; examining the patient; pulse oximetry; ordering and review of studies; arranging urgent treatment with development of a management plan; evaluation of patient's response to treatment; frequent reassessment; and discussions with other providers. It was exclusive of separately billable procedures and treating other patients and teaching time. Please see Assessment and Plan section and the rest of the note for further information on patient assessment and treatment Subjective Date/time seen: 12/18/19 12:10 Interval history: Reason for consult: Acute respiratory failure due to code, pneumothorax, emphysema 12/18/2019: Patient remains on 75% FiO2 and 50% flow rate. Patient desaturates when he is in the bed, and his oxygen saturation improves when he sitting up in the chair. He is complains of weakness, complaints. Patient is afebrile, hemodynamically stable with adequate urine output Review of Systems Review of Systems: All systems reviewed & are unremarkable except as noted in HPI and below ( Subjective) Exam Narrative: Exam Narrative: General: Pt is alert awake and in NAD Lungs/Chest: Trachea ce
[2019-12-18 12:30] LABS: Glucose Point of Care 127 (65-105)
[2019-12-18 16:16] LABS: Glucose Point of Care 136 (65-105)
--- NOTE | 2019-12-18 18:28 | PM.IMPN ---
Progress Note: A&P Assessment and Plan (1) Acute respiratory failure with hypoxia: Code(s): J96.01 - Acute respiratory failure with hypoxia Status: Acute Assessment and Plan: Patient with significant oxygen requirement related to COVID complicated by his COPD. Wean oxygen as tolerated. He still requiring high flow oxygen. Continue dexamethasone day #10 of 10 Remdesivir was completed and also received convalescent plasma. (2) Pneumothorax: Qualifiers: Pneumothorax type: other pneumothorax Qualified Code(s): J93.83 - Other pneumothorax Code(s): J93.9 - Pneumothorax, unspecified Status: Acute Assessment and Plan: Chest x-ray showing also a small right apical pneumothorax on admission. Continue to monitor with serial chest x-rays. 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 (3) COVID-19: Code(s): U07.1 - COVID-19 Status: Acute Assessment and Plan: He tested positive on December 06 for COVID. Dexamethasone and Remdesivir were started 12/09/19. Convalescent plasma given 12/09/2019. Inflammatory markers still elevated but falling, on bid lovenox due to elevated d dimer. (4) Pulmonary emphysema: Code(s): J43.9 - Emphysema, unspecified Status: Acute Assessment and Plan: Patient has a long history of tobacco use and subsequent emphysema. Albuterol and Atrovent inhalers have been ordered as needed. Wean oxygen as tolerated. Continue supportive care (5) HTN (hypertension): Code(s): I10 - Essential (primary) hypertension Status: Acute Assessment and Plan: Continue verapamil. (6) DVT prophylaxis: Code(s): Z29.9 - Encounter for prophylactic measures, unspecified Status: Acute Assessment and Plan: Lovenox Subjective Date/time seen: 12/18/19 18:28 Interval history: date of visit 12/17. 79yo male with COPD and recently diagnosed with COVID here for acute respiratory. Feels fair with complaints of leg pain . Minimal feelings of SOB or CAPELLAN when getting up to the chair. No n/v. No CP. Exam Narrative: Exam Narrative: AF 96.1 124/86 86 22 94% high flow 50 at 75% NC Gen - NARD sitting up in bed Chest - improved air exchange, less rhonchi CV - RRR S1-S2. Abd - soft, NT/ND, +BS Ext - no pedal edema. DP. PT 2+ and no tenderness to palpation Psych - normal mood and affect. Patient is pleasant and cooperative. Skin - warm and dry. Objective Data Vital Signs Vital Signs: Vital Signs - 24 hr 12/17/19 20:00 12/17/19 20:40 12/17/19 22:00 Temperature 36.2 C L Pulse Rate 79 72 68 Respiratory Rate 15 20 16 Blood Pressure 140/83 115/86 Pulse Oximetry 96 95 98 12/18/19 00:00 12/18/19 02:00 12/18/19 04:00 Temperature 36.2 C L 35.5 C L Pulse Rate 78 85 86 Respiratory Rate 18 19 18 Blood Pressure 131/73 119/85 104/66 Pulse Oximetry 94 89 L 99 12/18/19 04:44 12/18/19 06:00 12/18/19 08:00 Temperature 35.9 C L Pulse Rate 78 73 Respiratory Rate 19 17 Blood Pressure 145/85 H 142/94 H Pulse Oximetry 95 96 98 12/18/19 08:37 12/18/19 10:00 12/18/19 12:00 Temperature 35.6 C L Pulse Rate 74 70 Respiratory Rate 15 19 Blood Pressure 110/81 121/74 Pulse Oximetry 98 98 97 12/18/19 14:00 12/18/19 16:00 12/18/19 18:00 Temperature 35.6 C L Pulse Rate 81 84 87 Respiratory Rate 20 21 H 14 Blood Pressure 126/78 119/83 125/88 Pulse Oximetry 91 94 92 Intake/Output Intake/Output: Intake & Output 12/15/19 12/16/19 12/17/19 12/18/19 23:59 23:59 23:59 23:59 Intake Total 1045 1680 1670 1650 Output Total 1200 1500 1740 1625 Balance -155 180 -70 25 Meds/Results Medications: Active Medications Generic Name Dose Route Start Last Admin Trade Name Freq PRN Reason Stop Dose Admin Acetaminophen 650 mg 12/10/19 22:38 12/18/19 18:06 Tylenol Tablet PO 650 mg Q6H PRN Administration Mild Pa
[2019-12-18] MEDS: MELATONIN 5 MG TABLET PO (21:49)
[2019-12-18 21:58] LABS: Glucose Point of Care 149 (65-105)
[2019-12-19] VITALS (16 sets, daily range): BP systolic 110–162; BP diastolic 54–97; PULSE 62–82; RESP 12–23; TEMP 36–37.1; O2SAT 86–100
[2019-12-19] MEDS: CENTRAL LINE FLUSH 10 ML IV PUSH ×3 (05:37→20:18)
[2019-12-19 08:17] LABS: Glucose Point of Care 88 (65-105)
--- NOTE | 2019-12-19 09:21 | WPDINTPN ---
Progress Note: A&P Assessment and Plan (1) Acute respiratory failure due to COVID-19: Code(s): U07.1 - COVID-19; J96.00 - Acute respiratory failure, unspecified whether with hypoxia or hypercapnia Status: Acute Assessment and Plan: Acute respiratory failure secondary to COVID-19 with baseline COPD, right lobectomy and history of lung cancer SARS-CoV-2 PCR positive chest x-ray reviewed, continues to be hypoxic on 90% FiO2 and 60 L flow rate on high-flow oxygen therapy Patient is now on Airborne, Droplet and Contact Isolation following inflammatory markers, Dexamethasone completed on 01/09/2020 - completed course of Remdesivir Convalscent plasma 1 unit given on 12/08 continue Bronchodilators (2) Pneumothorax: Qualifiers: Pneumothorax type: other pneumothorax Qualified Code(s): J93.83 - Other pneumothorax Code(s): J93.9 - Pneumothorax, unspecified Status: Acute Assessment and Plan: chest x-ray with no change patient has history of lobectomy on the right and this may be chronic. Will continue to monitor. (3) Pulmonary emphysema: Code(s): J43.9 - Emphysema, unspecified Status: Acute Assessment and Plan: continue bronchodilators (4) CAD (coronary artery disease): Code(s): I25.10 - Atherosclerotic heart disease of [place] coronary artery without angina pectoris Status: Acute Assessment and Plan: aspirin and statin (5) HLD (hyperlipidemia): Code(s): E78.5 - Hyperlipidemia, unspecified Status: Acute Assessment and Plan: statin (6) HTN (hypertension): Code(s): I10 - Essential (primary) hypertension Status: Acute Assessment and Plan: blood pressure controlled at this time on home verapamil dose (7) DVT prophylaxis: Code(s): Z29.9 - Encounter for prophylactic measures, unspecified Status: Acute Assessment and Plan: Lovenox 40 mg is subcu q.12 hours due to elevated D-dimer (8) Dietary counseling and surveillance: Code(s): Z71.3 - Dietary counseling and surveillance Status: Acute Assessment and Plan: patient tolerating diabetic diet and has a good appetite, no loss of smell or taste - contipation: on Miralax - last bowel movement on 12/17/2019 stress ulcer prophylaxis: Famotidine Additional Plan discussed with patient at length and updated with his condition and plan of care. patient is frustrated as he cannot go home. Code Status - patient is full code at this time Total Critical Care Time - 32 minutes Due to a high probability of clinically significant, life threatening deterioration, the patient required my highest level of preparedness to intervene emergently and I personally spent this critical care time directly and personally managing the patient. This critical care time included obtaining a history; examining the patient; pulse oximetry; ordering and review of studies; arranging urgent treatment with development of a management plan; evaluation of patient's response to treatment; frequent reassessment; and discussions with other providers. It was exclusive of separately billable procedures and treating other patients and teaching time. Please see Assessment and Plan section and the rest of the note for further information on patient assessment and treatment Subjective Date/time seen: 12/19/19 09:21 Interval history: Reason for consult: Acute respiratory failure due to code, pneumothorax, emphysema 12/19/2019: Patient's oxygen requirements are up, currently on 90% FiO2 with 60 L flow rate via high-flow therapy. Patient also on 100% non-rebreather when he is in bed. When patient is sitting in the chair, his O2 sats much improved and also his oxygen requirements come down. Patient complains of bilateral lower extremity weakness and pain, anxiety. Denies any cough, fevers, chills, abdominal pain, chest pain, nausea, vomiting. No
[2019-12-19] MEDS: ENOXAPARIN 40 MG/0.4 ML SYRINGE SUB-Q ×2 (10:42→20:15)
[2019-12-19] MEDS: ATORVASTATIN 20 MG TABLET PO (10:42)
[2019-12-19] MEDS: VERAPAMIL HCL 180 MG TABLET ER PO ×2 (10:42→20:16)
[2019-12-19] MEDS: FAMOTIDINE 10 MG TABLET PO ×2 (10:42→20:16)
[2019-12-19] MEDS: ASPIRIN 81 MG ENTERIC TABLET PO (10:42)
[2019-12-19] MEDS: TAMSULOSIN HCL 0.4 MG CAPSULE PO (10:42)
[2019-12-19] MEDS: polyethylene glycoL 3350 17 GM POWD.PACK PO (10:44)
[2019-12-19] MEDS: ALPRAZolam 0.25 MG TABLET PO ×2 (10:45→20:14)
[2019-12-19 13:31] LABS: Glucose Point of Care 88 (65-105)
--- NOTE | 2019-12-19 16:21 | P.PNIM_ITS ---
Progress Note: A&P Assessment and Plan (1) Acute respiratory failure with hypoxia: Code(s): J96.01 - Acute respiratory failure with hypoxia Status: Acute Assessment and Plan: * Patient with significant oxygen requirement related to COVID complicated by his COPD. * Wean oxygen as tolerated. He still requiring high flow oxygen. * Continue dexamethasone day #10 of 10 finished 12/17 * Remdesivir was completed and also received convalescent plasma. (2) Pneumothorax: Qualifiers: Pneumothorax type: other pneumothorax Qualified Code(s): J93.83 - Other pneumothorax Code(s): J93.9 - Pneumothorax, unspecified Status: Acute Assessment and Plan: * Chest x-ray showing also a small right apical pneumothorax on admission. * Continue to monitor with serial chest x-rays. 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 (3) COVID-19: Code(s): U07.1 - COVID-19 Status: Acute Assessment and Plan: * He tested positive on December 06 for COVID. * Dexamethasone and Remdesivir were started 12/09/19. Convalescent plasma given 12/09/2019. * Inflammatory markers still elevated though mildly so on bid lovenox due to elevated d dimer. * CXR today slight more infiltrates * (4) Pulmonary emphysema: Code(s): J43.9 - Emphysema, unspecified Status: Acute Assessment and Plan: * Patient has a long history of tobacco use and subsequent emphysema. * Albuterol and Atrovent inhalers have been ordered as needed. * Wean oxygen as tolerated. Continue supportive care (5) HTN (hypertension): Code(s): I10 - Essential (primary) hypertension Status: Acute Assessment and Plan: * Continue verapamil. (6) DVT prophylaxis: Code(s): Z29.9 - Encounter for prophylactic measures, unspecified Status: Acute Assessment and Plan: Lovenox bid Subjective Date/time seen: 12/19/19 16:21 Interval history: date of visit 12/18. 79yo male with COPD and recently diagnosed with COVID here for acute respiratory. Feels fair with continued complaints of leg pain . Minimal feelings of SOB or CAPELLAN when getting up to the chair. No n/v. No CP. Exam Narrative: Exam Narrative: AF 96.1 110/60 78 22 96% high flow 50 at 80% NC Gen - NARD sitting up in bed Chest - improved air exchange, CV - RRR S1-S2. Abd - soft, NT/ND, +BS Ext - no pedal edema. DP. PT 2+ and no tenderness to palpation Psych - normal mood and affect. Patient is pleasant and cooperative. Skin - warm and dry. Objective Data Vital Signs Vital Signs: Vital Signs - 24 hr 12/18/19 18:00 12/18/19 19:50 12/18/19 20:00 Temperature 35.8 C L Pulse Rate 87 75 Respiratory Rate 14 18 Blood Pressure 125/88 136/82 Pulse Oximetry 92 82 L 99 12/18/19 20:47 12/18/19 21:14 12/18/19 22:00 Temperature 36.3 C L Pulse Rate 70 70 Respiratory Rate 19 16 Blood Pressure 129/86 Pulse Oximetry 97 100 12/19/19 00:00 12/19/19 02:00 12/19/19 04:00 Temperature 36.6 C 36.0 C L Pulse Rate 75 66 66 Respiratory Rate 20 16 16 Blood Pressure 111/63 122/71 119/67 Pulse Oximetry 93 97 100 12/19/19 06:00 12/19/19 08:00 12/19/19 08:30
--- NOTE | 2019-12-19 16:21 | PM.IMPN ---
Progress Note: A&P Assessment and Plan (1) Acute respiratory failure with hypoxia: Code(s): J96.01 - Acute respiratory failure with hypoxia Status: Acute Assessment and Plan: Patient with significant oxygen requirement related to COVID complicated by his COPD. Wean oxygen as tolerated. He still requiring high flow oxygen. Continue dexamethasone day #10 of 10 finished 12/17 Remdesivir was completed and also received convalescent plasma. (2) Pneumothorax: Qualifiers: Pneumothorax type: other pneumothorax Qualified Code(s): J93.83 - Other pneumothorax Code(s): J93.9 - Pneumothorax, unspecified Status: Acute Assessment and Plan: Chest x-ray showing also a small right apical pneumothorax on admission. Continue to monitor with serial chest x-rays. 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 (3) COVID-19: Code(s): U07.1 - COVID-19 Status: Acute Assessment and Plan: He tested positive on December 06 for COVID. Dexamethasone and Remdesivir were started 12/09/19. Convalescent plasma given 12/09/2019. Inflammatory markers still elevated though mildly so on bid lovenox due to elevated d dimer. CXR today slight more infiltrates (4) Pulmonary emphysema: Code(s): J43.9 - Emphysema, unspecified Status: Acute Assessment and Plan: Patient has a long history of tobacco use and subsequent emphysema. Albuterol and Atrovent inhalers have been ordered as needed. Wean oxygen as tolerated. Continue supportive care (5) HTN (hypertension): Code(s): I10 - Essential (primary) hypertension Status: Acute Assessment and Plan: Continue verapamil. (6) DVT prophylaxis: Code(s): Z29.9 - Encounter for prophylactic measures, unspecified Status: Acute Assessment and Plan: Lovenox bid Subjective Date/time seen: 12/19/19 16:21 Interval history: date of visit 12/18. 79yo male with COPD and recently diagnosed with COVID here for acute respiratory. Feels fair with continued complaints of leg pain . Minimal feelings of SOB or CAPELLAN when getting up to the chair. No n/v. No CP. Exam Narrative: Exam Narrative: AF 96.1 110/60 78 22 96% high flow 50 at 80% NC Gen - NARD sitting up in bed Chest - improved air exchange, CV - RRR S1-S2. Abd - soft, NT/ND, +BS Ext - no pedal edema. DP. PT 2+ and no tenderness to palpation Psych - normal mood and affect. Patient is pleasant and cooperative. Skin - warm and dry. Objective Data Vital Signs Vital Signs: Vital Signs - 24 hr 12/18/19 18:00 12/18/19 19:50 12/18/19 20:00 Temperature 35.8 C L Pulse Rate 87 75 Respiratory Rate 14 18 Blood Pressure 125/88 136/82 Pulse Oximetry 92 82 L 99 12/18/19 20:47 12/18/19 21:14 12/18/19 22:00 Temperature 36.3 C L Pulse Rate 70 70 Respiratory Rate 19 16 Blood Pressure 129/86 Pulse Oximetry 97 100 12/19/19 00:00 12/19/19 02:00 12/19/19 04:00 Temperature 36.6 C 36.0 C L Pulse Rate 75 66 66 Respiratory Rate 20 16 16 Blood Pressure 111/63 122/71 119/67 Pulse Oximetry 93 97 100 12/19/19 06:00 12/19/19 08:00 12/19/19 08:30 Temperature 36.2 C L Pulse Rate 68 65 75 Respiratory Rate 16 20 Blood Pressure 162/94 H 141/97 H Pulse Oximetry 86 L 98 12/19/19 10:00 12/19/19 12:00 12/19/19 14:00 Temperature 36.1 C L Pulse Rate 63 68 79 Respiratory Rate 12 17 22 H Blood Pressure 137/83 119/72 110/65 Pulse Oximetry 99 100 100 12/19/19 15:51 12/19/19 15:52 Temperature 36.5 C Pulse Rate 79 79 Respiratory Rate 23 H 23 H Blood Pressure 110/65 Pulse Oximetry 96 96 Intake/Output Intake/Output: Intake & Output 12/16/19 12/17/19 12/18/19 12/19/19 23:59 23:59 23:59 23:59 Intake Total 1680 1670 1650 660 Output Total 1500 1740 1625 1775 Balance 180 70 25 -1325 Meds/Results Medications: Active Medications Generic Name
[2019-12-19] MEDS: ACETAMINOPHEN 325 MG TABLET 650 MG PO (18:30)
[2019-12-19] MEDS: MELATONIN 5 MG TABLET PO (20:14)
[2019-12-20] VITALS (15 sets, daily range): BP systolic 81–132; BP diastolic 53–96; PULSE 59–97; RESP 14–28; TEMP 36.2–37.3; O2SAT 88–97
[2019-12-20] MEDS: ACETAMINOPHEN 325 MG TABLET 650 MG PO ×3 (00:34→19:50)
[2019-12-20] MEDS: CENTRAL LINE FLUSH 10 ML IV PUSH ×3 (06:18→19:51)
[2019-12-20] MEDS: ENOXAPARIN 40 MG/0.4 ML SYRINGE SUB-Q ×2 (08:17→19:50)
[2019-12-20] MEDS: FAMOTIDINE 10 MG TABLET PO ×2 (08:17→19:50)
[2019-12-20] MEDS: VERAPAMIL HCL 180 MG TABLET ER PO ×2 (08:18→19:50)
[2019-12-20] MEDS: ATORVASTATIN 20 MG TABLET PO (08:18)
[2019-12-20] MEDS: ASPIRIN 81 MG ENTERIC TABLET PO (08:18)
[2019-12-20] MEDS: TAMSULOSIN HCL 0.4 MG CAPSULE PO (08:18)
[2019-12-20] MEDS: polyethylene glycoL 3350 17 GM POWD.PACK PO (08:18)
--- NOTE | 2019-12-20 11:43 | PCDIET ---
ICU Rounding Note: Patient continues to eat 90-100% of most recorded meals on regular diet with Glucerna BID. Last recorded weight is 82.7kg which is increased from last review, despite -I/O. Bowel Motility: Last documented BM on 12/19/19. Labs Reviewed: Glu (88) Meds Noted: Albuterol, Tums, Pepcid Ac, Atrovent, Miralax Additional Notes: No open sores documented. Following daily in ICU rounds. Assessing/reassessing every 5 days.
--- NOTE | 2019-12-20 15:47 | WPDINTPN ---
Progress Note: A&P Assessment and Plan (1) Acute respiratory failure due to COVID-19: Code(s): U07.1 - COVID-19; J96.00 - Acute respiratory failure, unspecified whether with hypoxia or hypercapnia Status: Acute Assessment and Plan: Acute respiratory failure secondary to COVID-19 with baseline COPD, right lobectomy and history of lung cancer SARS-CoV-2 PCR positive chest x-ray reviewed, continues to be hypoxic on 90% FiO2 and 60 L flow rate on high-flow oxygen therapy Patient is now on Airborne, Droplet and Contact Isolation following inflammatory markers, Dexamethasone completed on 01/09/2020 - completed course of Remdesivir Convalscent plasma 1 unit given on 12/08 continue Bronchodilators (2) Pneumothorax: Qualifiers: Pneumothorax type: other pneumothorax Qualified Code(s): J93.83 - Other pneumothorax Code(s): J93.9 - Pneumothorax, unspecified Status: Acute Assessment and Plan: chest x-ray with no change patient has history of lobectomy on the right and this may be chronic. Will continue to monitor. (3) Pulmonary emphysema: Code(s): J43.9 - Emphysema, unspecified Status: Acute Assessment and Plan: continue bronchodilators (4) CAD (coronary artery disease): Code(s): I25.10 - Atherosclerotic heart disease of [place] coronary artery without angina pectoris Status: Acute Assessment and Plan: aspirin and statin (5) HLD (hyperlipidemia): Code(s): E78.5 - Hyperlipidemia, unspecified Status: Acute Assessment and Plan: statin (6) HTN (hypertension): Code(s): I10 - Essential (primary) hypertension Status: Acute Assessment and Plan: blood pressure controlled at this time on home verapamil dose (7) DVT prophylaxis: Code(s): Z29.9 - Encounter for prophylactic measures, unspecified Status: Acute Assessment and Plan: Lovenox 40 mg is subcu q.12 hours due to elevated D-dimer (8) Dietary counseling and surveillance: Code(s): Z71.3 - Dietary counseling and surveillance Status: Acute Assessment and Plan: patient tolerating diabetic diet and has a good appetite, no loss of smell or taste - contipation: on Miralax - last bowel movement on 12/17/2019 stress ulcer prophylaxis: Famotidine Additional Plan discuss with patient's Melody, updated her with patient's condition and plan of care. She was just concerned about him anxious, I assured her that be giving him Xanax as needed. I discussed regarding intubation and placing you on mechanical ventilation if the need arises and she stated do everything to keep him alive and get him back home . Code Status - patient is full code at this time Total Critical Care Time - 34 minutes Due to a high probability of clinically significant, life threatening deterioration, the patient required my highest level of preparedness to intervene emergently and I personally spent this critical care time directly and personally managing the patient. This critical care time included obtaining a history; examining the patient; pulse oximetry; ordering and review of studies; arranging urgent treatment with development of a management plan; evaluation of patient's response to treatment; frequent reassessment; and discussions with other providers. It was exclusive of separately billable procedures and treating other patients and teaching time. Please see Assessment and Plan section and the rest of the note for further information on patient assessment and treatment Subjective Date/time seen: 12/20/19 15:47 Interval history: Reason for consult: Acute respiratory failure due to code, pneumothorax, emphysema 12/20/2019: Patient is on 90% FiO2 and 60 L flow rate along with 100% non-rebreather mask when he is in bed. When he sitting up his oxygen levels improved and he does not require the non-rebreather. Patient den
[2019-12-20] MEDS: ALPRAZolam 0.25 MG TABLET PO (19:49)
[2019-12-20] MEDS: MELATONIN 5 MG TABLET PO (19:50)
[2019-12-21] VITALS (18 sets, daily range): BP systolic 95–123; BP diastolic 55–80; PULSE 69–100; RESP 14–28; TEMP 36.2–36.5; O2SAT 84–98
[2019-12-21] MEDS: CENTRAL LINE FLUSH 10 ML IV PUSH ×3 (03:33→20:18)
[2019-12-21 03:35] LABS: Basophils Percent Auto 0.3 % (0.2-1.2); Eosinophils Absolute Auto 0.1 K/mm3 (0-0.3); Eosinophils Percent Auto 1.2 % (0-4.4); Hematocrit 37.9 % (42.0-52.0); Hemoglobin 12.1 g/dL (14.0-18.0); Immature Granulocyte Absolute 0.28 K/mm3 (0.00-0.031); Immature Granulocyte Percent A 2.4 % (0-0.5); Lymphocytes Absolute Auto 0.66 K/mm3 (0.9-3.2); Lymphocytes Percent Auto 5.7 % (18.3-44.2); Mean Corpuscular HGB Conc 31.9 g/dl (32-36); Mean Corpuscular Hemoglobin 28.4 pg (26-34); Mean Platelet Volume 9.8 fl (7.4-10.4); Monocytes Absolute Auto 0.2 K/mm3 (0.1-0.6); Monocytes Percent Auto 1.3 % (2.6-8.5); Neutrophils Absolute Auto 10.4 K/mm3 (1.3-6.7); Neutrophils Percent Auto 89.1 % (45.5-73.1); Platelet Count Result 245 k/mm3 (150-375); Red Blood Count 4.26 M/mm3 (4.6-6.20); White Blood Count 11.7 K/mm3 (4.5-10.0)
[2019-12-21 03:56] LABS: Lactic Acid Reflex 1.8 mmol/L (0.7-2.1)
[2019-12-21 04:24] LABS: Alanine Aminotransferase 17 U/L (4-50); Albumin Level 2.5 g/dL (3.5-5.1); Alkaline Phosphatase 108 U/L (38-126); Anion Gap 2 mmol/L (8-16); Aspartate Amino Transferase 24 U/L (17-59); Bilirubin,Total 0.4 mg/dL (0.2-1.3); Blood Urea Nitrogen 16 mg/dL (9-20); Calcium 7.7 mg/dL (8.4-10.2); Carbon Dioxide 33 mmol/L (22-30); Chloride 99 mmol/L (98-107); Estimated CRCL calculation 89 ml/min; Estimated Glomerular Filt Rate > 60; Glucose 140 mg/dL (75-110); Magnesium 2.2 mg/dL (1.6-2.3); Phosphorus 3.4 mg/dL (2.5-4.5); Potassium 3.7 mmol/L (3.4-5.0); Sodium 134 mmol/L (137-145)
[2019-12-21 04:42] LABS: Alveolar/Arterial O2 Gradient 596.5 mmHg; Base Excess ABG 2.8 mEq/l (+/-2.0); Carboxyhemoglobin 0.1 % THb (0-2.0); Fractional Inspired Oxygen 94 %; HCO3 ABG 24.8 mEq/l (22.0-26.0); Methemoglobin ABG 0.2 %THb (0-1.5); Oxygen Content ABG 15.7 %vol (16.0-22.0); Oxyhemoglobin 82.7 % THb (90.0-100.0); PCO2 ABG 30.3 mmHg (35.0-45.0); PO2 FiO2 Ratio Arterial Blood 0.46 %; Total Hemoglobin 13.5 g/dL (12.0-18.0)
[2019-12-21 04:47] LABS: Modified Allen's Test Pass; Oxygen Saturation ABG 84.9 % (95.0-100.0); Site Drawn RIGHT RADIAL
[2019-12-21 04:48] LABS: Device HIGH FLOW THERAPY
[2019-12-21] MEDS: FUROSEMIDE INJ 40 MG/4 ML VIAL IV PUSH (08:51)
[2019-12-21] MEDS: ENOXAPARIN 40 MG/0.4 ML SYRINGE SUB-Q ×2 (08:52→20:17)
[2019-12-21] MEDS: ATORVASTATIN 20 MG TABLET PO (08:52)
[2019-12-21] MEDS: ASPIRIN 81 MG ENTERIC TABLET PO (08:52)
[2019-12-21] MEDS: FAMOTIDINE 10 MG TABLET PO ×2 (08:53→20:17)
[2019-12-21] MEDS: TAMSULOSIN HCL 0.4 MG CAPSULE PO (08:53)
[2019-12-21] MEDS: polyethylene glycoL 3350 17 GM POWD.PACK PO (08:53)
[2019-12-21] MEDS: VERAPAMIL HCL 180 MG TABLET ER PO ×2 (08:53→20:18)
--- NOTE | 2019-12-21 10:17 | PM.IMPN ---
Progress Note: A&P Assessment and Plan (1) Acute respiratory failure with hypoxia: Code(s): J96.01 - Acute respiratory failure with hypoxia Status: Acute Assessment and Plan: Patient with significant oxygen requirement related to COVID complicated by his COPD. ABG confirming that this is all hypoxia. No evidence of CO2 retention. Patient has been admitted to the ICU. Completed dexamethasone on 12/17. Completed Remdesivir 12/12. He also received convalescent plasma. CXR reviewed and showing worsening left lung airspace disease. Wean oxygen as tolerated. Lasix once ordered. 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 (2) Pneumothorax: Qualifiers: Pneumothorax type: other pneumothorax Qualified Code(s): J93.83 - Other pneumothorax Code(s): J93.9 - Pneumothorax, unspecified Status: Deleted Assessment and Plan: Chest x-ray showing also a small right apical pneumothorax on admission. 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 Serial CXR show that the PTX has resolved. Continue to monitor. We will continue to monitor closely for worsening symptoms. (3) COVID-19: Code(s): U07.1 - COVID-19 Status: Acute Assessment and Plan: Patient's approximate onset of symptoms started around 12/05/19. He tested positive for COVID on December 06. Dexamethasone and Remdesivir were started 12/09/19. Convalescent plasma given 12/09/2019. Inflammatory markers (CRP) worse today. Patient remaining stable but still has a considerable O2 requirement. Continue supportive care. (4) Pulmonary emphysema: Code(s): J43.9 - Emphysema, unspecified Status: Acute Assessment and Plan: Patient has a long history of tobacco use and subsequent emphysema. Albuterol and Atrovent inhalers have been ordered as needed. Wean oxygen as tolerated. Continue supportive care (5) HTN (hypertension): Code(s): I10 - Essential (primary) hypertension Status: Acute Assessment and Plan: BP well controlled. Continue verapamil with parameters in place. Continue to monitor (6) DVT prophylaxis: Code(s): Z29.9 - Encounter for prophylactic measures, unspecified Status: Acute Assessment and Plan: Lovenox Subjective Date/time seen: 12/21/19 10:17 Interval history: Date of service: 12/20 79yo male here for acute respiratory failure from COVID. Reassuming care. Chart reviewed. Does not feel SOB. Eating okay. No CP or significant cough. was up to the chair earlier today. Complains of legs feeling 'sore' below the knees bilaterally. Exam Narrative: Exam Narrative: AF 97.3 115/68 70 16 90% high flow therapy with NRB mask Gen - NARD lying semi-recumbent in bed Chest - Distant breath sounds with occasional rhonchi. Decreased breath sounds in the left base. No conversational dyspnea CV - RRR S1-S2. Tele showing PVCs Abd - soft, NT/ND, +BS Ext - no pedal edema. Negative Azul's and no cords. No palpable pain in the distal LE. Psych - normal mood and affect. Patient is pleasant and cooperative. Skin - warm and dry. Objective Data Vital Signs Vital Signs: Vital Signs - 24 hr 12/20/19 12:00 12/20/19 14:00 12/20/19 16:00 Temperature 98.2 F 98.2 F Pulse Rate 87 74 76 Respiratory Rate 26 H 18 20 Blood Pressure 103/64 81/53 L 111/80 Pulse Oximetry 93 92 91 12/20/19 18:00 12/20/19 20:00 12/20/19 22:00 Temperature 98.1 F Pulse Rate 88 85 77 Respiratory Rate 28 H 14 14 Blood Pressure 130/69 132/73 111/69 Pulse Oximetry 94 94 92 12/20/19 22:01 12/20/19 23:13 12/21/19 00:00 Temperature 97.7 F Pulse Rate 75 65 70 Respiratory Rate 20 18 15 Blood Pressure 111/63 Pulse Oximetry 94 90 91 12/21/19 02:00 12/21/19 03:35 12/21/19 04:00 Temperature Pulse Rate 77 75 75 Respiratory Rate 15 16 18 Blood Pressure 105/55 L 98/57 L Pulse Oximetry 95 97 95 12/21/19 05:05 12/21/19 06:00 12/21/19 08:00 Temper
--- NOTE | 2019-12-21 11:43 | WPDINTPN ---
Progress Note: A&P Assessment and Plan (1) Acute respiratory failure due to COVID-19: Code(s): U07.1 - COVID-19; J96.00 - Acute respiratory failure, unspecified whether with hypoxia or hypercapnia Status: Acute Assessment and Plan: Acute respiratory failure secondary to COVID-19 with baseline COPD, right lobectomy and history of lung cancer SARS-CoV-2 PCR positive chest x-ray reviewed, continues to be hypoxic on 90% FiO2 and 60 L flow rate on high-flow oxygen therapy Patient is now on Airborne, Droplet and Contact Isolation following inflammatory markers, - discussed with patient regarding intubation if his oxygen levels worsen or he has impending respiratory failure, patient and his requested that he be intubated and placed on mechanical ventilation Dexamethasone completed on 01/09/2020 - completed course of Remdesivir Convalscent plasma 1 unit given on 12/08 continue Bronchodilators (2) Pneumothorax: Qualifiers: Pneumothorax type: other pneumothorax Qualified Code(s): J93.83 - Other pneumothorax Code(s): J93.9 - Pneumothorax, unspecified Status: Acute Assessment and Plan: chest x-ray with no change patient has history of lobectomy on the right and this may be chronic. Will continue to monitor. (3) Pulmonary emphysema: Code(s): J43.9 - Emphysema, unspecified Status: Acute Assessment and Plan: continue bronchodilators (4) CAD (coronary artery disease): Code(s): I25.10 - Atherosclerotic heart disease of [place] coronary artery without angina pectoris Status: Acute Assessment and Plan: aspirin and statin (5) HLD (hyperlipidemia): Code(s): E78.5 - Hyperlipidemia, unspecified Status: Acute Assessment and Plan: continue statin (6) HTN (hypertension): Code(s): I10 - Essential (primary) hypertension Status: Acute Assessment and Plan: blood pressure controlled at this time on home verapamil dose (7) DVT prophylaxis: Code(s): Z29.9 - Encounter for prophylactic measures, unspecified Status: Acute Assessment and Plan: Lovenox 40 mg is subcu q.12 hours due to elevated D-dimer (8) Dietary counseling and surveillance: Code(s): Z71.3 - Dietary counseling and surveillance Status: Acute Assessment and Plan: patient tolerating diabetic diet and has a good appetite, no loss of smell or taste - contipation: on Miralax - last bowel movement on 12/19/2019 stress ulcer prophylaxis: Famotidine Additional Plan I discussed with the patient regarding his oxygenation levels being low, he states he does not have any respiratory distress feels fine. I also discussed with him regarding intubation and placement on mechanical ventilator if he has impending respiratory failure to which he says he does not want to and wants everything to be done Code Status - patient is full code at this time Total Critical Care Time - 33 minutes Due to a high probability of clinically significant, life threatening deterioration, the patient required my highest level of preparedness to intervene emergently and I personally spent this critical care time directly and personally managing the patient. This critical care time included obtaining a history; examining the patient; pulse oximetry; ordering and review of studies; arranging urgent treatment with development of a management plan; evaluation of patient's response to treatment; frequent reassessment; and discussions with other providers. It was exclusive of separately billable procedures and treating other patients and teaching time. Please see Assessment and Plan section and the rest of the note for further information on patient assessment and treatment Subjective Date/time seen: 12/21/19 11:43 Interval history: Reason for consult: Acute respiratory failure due to code, pneumothorax, emphysema 12/21/2019:
--- NOTE | 2019-12-21 12:03 | PCDIET ---
Nutrition Follow-Up Complete: Nutrition Diagnosis: Suboptimal oral intake related to COVID-19 pneumonia as evidenced by intakes 50-100% with downward trend in weight. Nutrition Goal: Patient to consume 75% of meals/supplements. Goal met. Patient consuming 75-100% of most meals on regular diet, along with Glucerna Shake BID. No new recommendations at this time. Last recorded weight is 78.3 kg which is decreased from last review, but stable with admission. -I/O noted. Bowel Motility: Last documented BM on 12/19/19. Labs Reviewed: Hgb (12.1), Hct (37.9), Cr (0.6), Na (134), Alb (2.5), Damon Ca (8.9) Meds Noted: Albuterol, Tums, Pepcid Ac, Atrovent, Miralax, Lasix Additional Notes: No skin breakdown documented. Will continue to monitor with same goal. Nutrition Monitoring and Evaluation: Follow up every 7 days.
[2019-12-21] MEDS: MELATONIN 5 MG TABLET PO (20:17)
[2019-12-21] MEDS: ALPRAZolam 0.25 MG TABLET PO (20:18)
[2019-12-21] MEDS: ACETAMINOPHEN 325 MG TABLET 650 MG PO (20:18)
[2019-12-22] VITALS (18 sets, daily range): BP systolic 94–146; BP diastolic 52–92; PULSE 65–102; RESP 14–34; TEMP 36.4–36.6; O2SAT 85–95
[2019-12-22] MEDS: CENTRAL LINE FLUSH 10 ML IV PUSH ×3 (03:55→20:29)
[2019-12-22 03:58] LABS: Hematocrit 38.5 % (42.0-52.0); Hemoglobin 12.4 g/dL (14.0-18.0); Mean Corpuscular HGB Conc 32.2 g/dl (32-36); Mean Corpuscular Hemoglobin 28.8 pg (26-34); Mean Corpuscular Volume 89.3 fl (80-100); Mean Platelet Volume 9.8 fl (7.4-10.4); Platelet Count Result 224 k/mm3 (150-375); Red Blood Count 4.31 M/mm3 (4.6-6.20); White Blood Count 12.7 K/mm3 (4.5-10.0)
[2019-12-22 04:10] LABS: Albumin Level 2.6 g/dL (3.5-5.1); Anion Gap 2 mmol/L (8-16); Blood Urea Nitrogen 23 mg/dL (9-20); Calcium 7.9 mg/dL (8.4-10.2); Carbon Dioxide 34 mmol/L (22-30); Chloride 100 mmol/L (98-107); Estimated CRCL calculation 89 ml/min; Estimated Glomerular Filt Rate > 60; Glucose 98 mg/dL (75-110); Magnesium 2.3 mg/dL (1.6-2.3); Phosphorus 3.5 mg/dL (2.5-4.5); Potassium 3.9 mmol/L (3.4-5.0); Sodium 136 mmol/L (137-145)
[2019-12-22] MEDS: polyethylene glycoL 3350 17 GM POWD.PACK PO (08:01)
[2019-12-22] MEDS: VERAPAMIL HCL 180 MG TABLET ER PO ×2 (08:02→20:29)
[2019-12-22] MEDS: ATORVASTATIN 20 MG TABLET PO (08:02)
[2019-12-22] MEDS: ASPIRIN 81 MG ENTERIC TABLET PO (08:02)
[2019-12-22] MEDS: FAMOTIDINE 10 MG TABLET PO ×2 (08:02→20:29)
[2019-12-22] MEDS: TAMSULOSIN HCL 0.4 MG CAPSULE PO (08:02)
[2019-12-22] MEDS: ENOXAPARIN 40 MG/0.4 ML SYRINGE SUB-Q ×2 (08:02→20:29)
--- NOTE | 2019-12-22 11:15 | PCDIET ---
ICU Rounding Note: Patient remains on regular diet with Glucerna Shake BID. Patient consumed average of 66% of meals on 12/21/19 + Glucerna. Last recorded weight is 78.7kg which is stable. Bowel Motility: Last documented BM on 12/19/19. Miralax given today. Labs Reviewed: Hgb (12.4), Hct (38.5), BUN (23), Cr (0.6), Na (136), Alb (2.6), Damon Ca (9.02) Meds Noted: Albuterol, Tums, Pepcid Ac, Atrovent, Miralax Additional Notes: No documented skin breakdown. Following daily in ICU rounds. Assessing/reassessing every 7 days.
[2019-12-22] MEDS: ACETAMINOPHEN 325 MG TABLET 650 MG PO ×2 (11:54→20:28)
--- NOTE | 2019-12-22 13:27 | WPDINTPN ---
Progress Note: A&P Assessment and Plan (1) Acute respiratory failure due to COVID-19: Code(s): U07.1 - COVID-19; J96.00 - Acute respiratory failure, unspecified whether with hypoxia or hypercapnia Status: Acute Assessment and Plan: Acute respiratory failure secondary to COVID-19 with baseline COPD, right lobectomy and history of lung cancer SARS-CoV-2 PCR positive chest x-ray reviewed, continues to be hypoxic on 90% FiO2 and 60 L flow rate on high-flow oxygen therapy despite which his O2 sats have been pretty low. Discussed with him in details regarding intubation, CPR if his heart stops. The patient and his both requested that he be a do not resuscitate and do not intubated. He states if he improves well in good and if he did tolerates and passes away he is fine with that. Patient is now on Airborne, Droplet and Contact Isolation following inflammatory markers, Dexamethasone completed on 01/09/2020 - completed course of Remdesivir Convalscent plasma 1 unit given on 12/08 continue Bronchodilators (2) Pulmonary emphysema: Code(s): J43.9 - Emphysema, unspecified Status: Acute Assessment and Plan: continue bronchodilators (3) CAD (coronary artery disease): Code(s): I25.10 - Atherosclerotic heart disease of [place] coronary artery without angina pectoris Status: Acute Assessment and Plan: aspirin and statin (4) HLD (hyperlipidemia): Code(s): E78.5 - Hyperlipidemia, unspecified Status: Acute Assessment and Plan: continue statin (5) HTN (hypertension): Code(s): I10 - Essential (primary) hypertension Status: Acute Assessment and Plan: blood pressure controlled at this time on home verapamil dose (6) DVT prophylaxis: Code(s): Z29.9 - Encounter for prophylactic measures, unspecified Status: Acute Assessment and Plan: Lovenox 40 mg is subcu q.12 hours due to elevated D-dimer (7) Dietary counseling and surveillance: Code(s): Z71.3 - Dietary counseling and surveillance Status: Acute Assessment and Plan: patient tolerating diabetic diet and has a good appetite, no loss of smell or taste - contipation: on Miralax - last bowel movement on 12/19/2019 stress ulcer prophylaxis: Famotidine Additional Plan I discussed with patient and his in detail regarding him being hypoxic and that he may require intubation. Both patient and his requested that he be a do not intubate and do not resuscitate, furthermore the patient stated if he improves well in good, if he passes away he is fine with that too. Code Status - DNR/DNI Total Critical Care Time - 37 minutes Due to a high probability of clinically significant, life threatening deterioration, the patient required my highest level of preparedness to intervene emergently and I personally spent this critical care time directly and personally managing the patient. This critical care time included obtaining a history; examining the patient; pulse oximetry; ordering and review of studies; arranging urgent treatment with development of a management plan; evaluation of patient's response to treatment; frequent reassessment; and discussions with other providers. It was exclusive of separately billable procedures and treating other patients and teaching time. Please see Assessment and Plan section and the rest of the note for further information on patient assessment and treatment Subjective Date/time seen: 12/22/19 13:27 Interval history: Reason for consult: Acute respiratory failure due to code, pneumothorax, emphysema 12/22/2019: Patient remains on 90% FiO2 and 60 L flow rate for high-flow therapy, also on 100% non-rebreather mask. Patient has been saturating in the 70-80%. discussed with and his , both have decided that he should be a DNR and DNI. He continues to deny any shortness of breath, chest pain, abdominal
--- NOTE | 2019-12-22 18:09 | PM.IMPN ---
Progress Note: A&P Assessment and Plan (1) Acute respiratory failure with hypoxia: Code(s): J96.01 - Acute respiratory failure with hypoxia Status: Acute Assessment and Plan: Patient with significant oxygen requirement related to COVID complicated by his COPD. ABG confirming that this is all hypoxia. No evidence of CO2 retention. Patient has been admitted to the ICU. Completed dexamethasone on 12/17. Completed Remdesivir 12/12. He also received convalescent plasma 12/08. CXR reviewed and showing persistent worsening of the left lung airspace disease. Wean oxygen as tolerated. Appreciate kst operator input. Still with bilateral lower extremity pain. Will check LE dopplers. (2) Pneumothorax: Qualifiers: Pneumothorax type: other pneumothorax Qualified Code(s): J93.83 - Other pneumothorax Code(s): J93.9 - Pneumothorax, unspecified Status: Deleted Assessment and Plan: Chest x-ray showing also a small right apical pneumothorax on admission. 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 Serial CXR show that the PTX has resolved. Continue to monitor. (3) COVID-19: Code(s): U07.1 - COVID-19 Status: Acute Assessment and Plan: Patient's approximate onset of symptoms started around 12/05/19. He tested positive for COVID on December 06. Dexamethasone and Remdesivir were started 12/09/19. Convalescent plasma given 12/09/2019. CRP worse yesterday. Patient appears to be worsening despite being so far out from primary exposure. Still has a considerable O2 requirement. Continue supportive care. (4) Pulmonary emphysema: Code(s): J43.9 - Emphysema, unspecified Status: Acute Assessment and Plan: Patient has a long history of tobacco use and subsequent emphysema. Albuterol and Atrovent inhalers have been ordered as needed but not receiving. Wean oxygen as tolerated. Continue supportive care (5) HTN (hypertension): Code(s): I10 - Essential (primary) hypertension Status: Acute Assessment and Plan: BP well controlled. Continue verapamil with parameters in place. Continue to monitor (6) DVT prophylaxis: Code(s): Z29.9 - Encounter for prophylactic measures, unspecified Status: Acute Assessment and Plan: Lovenox Subjective Date/time seen: 12/22/19 18:09 Interval history: Date of service: 12/21 79yo male here for acute respiratory failure from COVID. He has expressed a wish not to proceed with intubation if this becomes necessary. He did become hypoxic earlier today with difficulty getting him to recover. He eventiually did. He denies cough. SOB about the same. He ate breakfast okay but skipped lunch. Exam Narrative: Exam Narrative: AF 97.7 146/76 101 18 88% high flow therapy with NRB mask Gen - NARD lying semi-recumbent in bed Chest - Mild basilar rhonchi with distant BS. Minimal conversational dyspnea CV - RRR S1-S2. Tele showing occasional PVCs Abd - soft, NT/ND, +BS Ext - no pedal edema. Psych - normal mood and affect. Patient is pleasant and cooperative. Skin - warm and dry. Objective Data Vital Signs Vital Signs: Vital Signs - 24 hr 12/21/19 20:00 12/21/19 20:38 12/21/19 21:03 Temperature 97.5 F L Pulse Rate 93 88 Respiratory Rate 28 H 18 Blood Pressure 123/80 Pulse Oximetry 86 L 98 97 12/21/19 22:00 12/22/19 00:00 12/22/19 00:59 Temperature 97.5 F L Pulse Rate 88 74 72 Respiratory Rate 15 16 15 Blood Pressure 95/64 L 100/66 Pulse Oximetry 94 91 91 12/22/19 02:00 12/22/19 03:06 12/22/19 04:00 Temperature 97.9 F Pulse Rate 70 65 67 Respiratory Rate 16 16 14 Blood Pressure 94/54 L 108/63 Pulse Oximetry 90 90 93 12/22/19 06:00 12/22/19 08:00 12/22/19 08:55 Temperature 97.9 F Pulse Rate 67 84 94 Respiratory Rate 18 24 H 24 H Blood Pressure 109/66 107/92 H Pulse Oximetry 91 91 92 12/22/19 10:00 12/22/19 12:00
[2019-12-22] MEDS: ALBUTEROL SULFATE NEB 2.5 MG/0.5 ML INH INHALATION (20:05)
[2019-12-22] MEDS: IPRATROPIUM BR 0.02% INH SOLN 0.5 MG/2.5 ML VIAL INHALATION (20:05)
[2019-12-22] MEDS: ALPRAZolam 0.25 MG TABLET PO (20:28)
[2019-12-22] MEDS: methylPREDNISolone SOD SUCC 125 MG VIAL 60 MG IV PUSH ×2 (20:28→23:41)
[2019-12-22] MEDS: MELATONIN 5 MG TABLET PO (20:29)
[2019-12-23] VITALS (26 sets, daily range): BP systolic 99–129; BP diastolic 61–86; PULSE 64–88; RESP 13–32; TEMP 35.6–36.5; O2SAT 89–95
[2019-12-23] MEDS: ALBUTEROL SULFATE NEB 2.5 MG/0.5 ML INH INHALATION ×3 (02:13→15:18)
[2019-12-23] MEDS: IPRATROPIUM BR 0.02% INH SOLN 0.5 MG/2.5 ML VIAL INHALATION ×3 (02:14→15:18)
[2019-12-23 04:21] LABS: Basophils Percent Auto 0.2 % (0.2-1.2); Hematocrit 38.1 % (42.0-52.0); Hemoglobin 12.3 g/dL (14.0-18.0); Immature Granulocyte Absolute 0.15 K/mm3 (0.00-0.031); Immature Granulocyte Percent A 1.6 % (0-0.5); Lymphocytes Absolute Auto 0.35 K/mm3 (0.9-3.2); Lymphocytes Percent Auto 3.8 % (18.3-44.2); Mean Corpuscular HGB Conc 32.3 g/dl (32-36); Mean Corpuscular Hemoglobin 28.7 pg (26-34); Mean Corpuscular Volume 88.8 fl (80-100); Mean Platelet Volume 9.8 fl (7.4-10.4); Monocytes Absolute Auto 0.1 K/mm3 (0.1-0.6); Monocytes Percent Auto 0.9 % (2.6-8.5); Neutrophils Absolute Auto 8.7 K/mm3 (1.3-6.7); Neutrophils Percent Auto 93.5 % (45.5-73.1); Platelet Count Result 209 k/mm3 (150-375); Red Blood Count 4.29 M/mm3 (4.6-6.20); Red Cell Distribution Width 15.2 % (11.5-14.5); White Blood Count 9.3 K/mm3 (4.5-10.0)
[2019-12-23 04:48] LABS: Alanine Aminotransferase 18 U/L (4-50); Albumin Level 2.7 g/dL (3.5-5.1); Alkaline Phosphatase 115 U/L (38-126); Anion Gap 4 mmol/L (8-16); Aspartate Amino Transferase 31 U/L (17-59); Bilirubin,Total 0.7 mg/dL (0.2-1.3); Blood Urea Nitrogen 25 mg/dL (9-20); Calcium 8.1 mg/dL (8.4-10.2); Carbon Dioxide 31 mmol/L (22-30); Chloride 102 mmol/L (98-107); Estimated CRCL calculation 105 ml/min; Estimated Glomerular Filt Rate > 60; Glucose 160 mg/dL (75-110); Potassium 4.4 mmol/L (3.4-5.0); Sodium 137 mmol/L (137-145)
[2019-12-23 04:59] LABS: CRP 21.2 mg/dL (<1.0)
[2019-12-23] MEDS: CENTRAL LINE FLUSH 10 ML IV PUSH ×3 (05:23→19:41)
[2019-12-23] MEDS: methylPREDNISolone SOD SUCC 125 MG VIAL 60 MG IV PUSH ×4 (05:23→23:36)
--- NOTE | 2019-12-23 08:41 | PC.NURSE ---
patient transferred to ICU-4 via bed without incident
[2019-12-23] MEDS: ENOXAPARIN 40 MG/0.4 ML SYRINGE SUB-Q ×2 (08:54→19:40)
[2019-12-23] MEDS: ASPIRIN 81 MG ENTERIC TABLET PO (08:55)
[2019-12-23] MEDS: FAMOTIDINE 10 MG TABLET PO ×2 (08:56→19:40)
[2019-12-23] MEDS: ATORVASTATIN 20 MG TABLET PO (08:56)
[2019-12-23] MEDS: VERAPAMIL HCL 180 MG TABLET ER PO ×2 (08:56→19:40)
[2019-12-23] MEDS: TAMSULOSIN HCL 0.4 MG CAPSULE PO (08:57)
[2019-12-23] MEDS: polyethylene glycoL 3350 17 GM POWD.PACK PO (08:58)
[2019-12-23] MEDS: ACETAMINOPHEN 325 MG TABLET 650 MG PO ×2 (09:07→19:40)
[2019-12-23 09:50] LABS: Glucose Point of Care 127 (65-105)
--- NOTE | 2019-12-23 10:32 | PM.IMPN ---
Progress Note: A&P Assessment and Plan (1) Acute respiratory failure with hypoxia: Code(s): J96.01 - Acute respiratory failure with hypoxia Status: Acute Assessment and Plan: Patient with significant oxygen requirement related to COVID complicated by his COPD. ABG confirming that this is all hypoxia. No evidence of CO2 retention. Patient was admitted to the ICU. Completed dexamethasone on 12/17. Completed Remdesivir 12/12. He also received convalescent plasma 12/08. CXR reviewed and showing persistent worsening of the left lung airspace disease. Bronchodilators and steroids started. Add abx. Wean oxygen as tolerated. Appreciate start up specialist input. Still with bilateral lower extremity pain. LE dopplers pending. (2) COVID-19: Code(s): U07.1 - COVID-19 Status: Acute Assessment and Plan: Patient's approximate onset of symptoms started around 12/05/19. He tested positive for COVID on December 06. Dexamethasone and Remdesivir were started 12/09/19. Convalescent plasma given 12/09/2019. CRP worse again today to 21. Patient appears to be better today. Unclear on why he is worsening despite being so far out from primary exposure. Discussed with speech therapy and there were no issues. Will continue nebs, steroids. Discussed with start up specialist. Will add abx as well today. Still has a considerable O2 requirement. Continue supportive care. Wean O2 as tolerated. (3) Pulmonary emphysema: Qualifiers: Emphysema type: unspecified Qualified Code(s): J43.9 - Emphysema, unspecified Code(s): J43.9 - Emphysema, unspecified Status: Acute Assessment and Plan: Patient has a long history of tobacco use and subsequent emphysema. Albuterol and Atrovent inhalers have been ordered as needed but was not receiving - this was scheduled on 12/22/19 and he is having benefit from this therapy. Solu-Medrol started as well. Wean oxygen as tolerated. Continue supportive care (4) HTN (hypertension): Qualifiers: Hypertension type: essential hypertension Qualified Code(s): I10 - Essential (primary) hypertension Code(s): I10 - Essential (primary) hypertension Status: Acute Assessment and Plan: BP well controlled. Continue verapamil with parameters in place. Continue to monitor (5) Pneumothorax: Qualifiers: Pneumothorax type: other pneumothorax Qualified Code(s): J93.83 - Other pneumothorax Code(s): J93.9 - Pneumothorax, unspecified Status: Deleted Assessment and Plan: Chest x-ray showing also a small right apical pneumothorax on admission. 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 Serial CXR show that the PTX has resolved. Continue to monitor. (6) DVT prophylaxis: Code(s): Z29.9 - Encounter for prophylactic measures, unspecified Status: Acute Assessment and Plan: Lovenox Subjective Date/time seen: 12/23/19 10:32 Interval history: Date of service: 12/22 79yo male here for acute respiratory failure from COVID. He feels better today. Denies cough. Denies CP. SOB about the same. Feels better since the breathing treatments started. Eating okay. Exam Narrative: Exam Narrative: AF 96.5 126/71 86 26 91% high flow therapy with NRB mask Gen - NARD sitting in a recliner Chest - fine inspiratory crackles left lung field, distant BS in the right CV - RRR S1-S2. Tele showing no significant dysrhythmias Abd - soft, NT/ND, +BS Ext - no pedal edema. Psych - normal mood and affect. Patient is pleasant and cooperative. Skin - warm and dry. Objective Data Vital Signs Vital Signs: Vital Signs - 24 hr 12/22/19 12:00 12/22/19 14:00 12/22/19 16:00 Temperature 97.7 F Pulse Rate 93 82 84 Respiratory Rate 22 H 22 H 27 H Blood Pressure 111/79 104/52 L 119/70 Pulse Oximetry 85 L 88 L 91 12/22/19 18:00 12/22/19 20:00 12/22/19 20:05 Temperature Pulse Rate 10
--- NOTE | 2019-12-23 12:21 | WPDINTPN ---
Progress Note: A&P Assessment and Plan (1) Acute respiratory failure due to COVID-19: Code(s): U07.1 - COVID-19; J96.00 - Acute respiratory failure, unspecified whether with hypoxia or hypercapnia Status: Acute Assessment and Plan: Acute respiratory failure secondary to COVID-19 with baseline COPD, right lobectomy and history of lung cancer SARS-CoV-2 PCR positive Chest x-ray shows worsening left-sided infiltrates - CRP and ferritin levels trending up - discussed with specialist, will start cefepime and vancomycin Patient is now on Airborne, Droplet and Contact Isolation Dexamethasone completed on 01/09/2020 - completed course of Remdesivir Convalscent plasma 1 unit given on 12/08 (2) Pulmonary emphysema: Qualifiers: Emphysema type: unspecified Qualified Code(s): J43.9 - Emphysema, unspecified Code(s): J43.9 - Emphysema, unspecified Status: Acute Assessment and Plan: started on Solu-Medrol 12/22/2019 continue bronchodilators - continue oxygen as above (3) CAD (coronary artery disease): Code(s): I25.10 - Atherosclerotic heart disease of [place] coronary artery without angina pectoris Status: Acute Assessment and Plan: aspirin and statin (4) HLD (hyperlipidemia): Code(s): E78.5 - Hyperlipidemia, unspecified Status: Acute Assessment and Plan: continue statin (5) HTN (hypertension): Qualifiers: Hypertension type: essential hypertension Qualified Code(s): I10 - Essential (primary) hypertension Code(s): I10 - Essential (primary) hypertension Status: Acute Assessment and Plan: blood pressure controlled at this time on home verapamil dose (6) DVT prophylaxis: Code(s): Z29.9 - Encounter for prophylactic measures, unspecified Status: Acute Assessment and Plan: Lovenox 40 mg is subcu q.12 hours due to elevated D-dimer (7) Dietary counseling and surveillance: Code(s): Z71.3 - Dietary counseling and surveillance Status: Acute Assessment and Plan: patient tolerating diabetic diet and has a good appetite, no loss of smell or taste - contipation: on Miralax - last bowel movement on 12/19/2019 stress ulcer prophylaxis: Famotidine Additional Plan patient's presented the patient yesterday, discussed with patient, he is aware that we will be starting him on antibiotics. 12/22/2019 I discussed with patient and his in detail regarding him being hypoxic and that he may require intubation. Both patient and his requested that he be a do not intubate and do not resuscitate, furthermore the patient stated if he improves well in good, if he passes away he is fine with that too. Code Status - DNR/DNI Total Critical Care Time - 33 minutes Due to a high probability of clinically significant, life threatening deterioration, the patient required my highest level of preparedness to intervene emergently and I personally spent this critical care time directly and personally managing the patient. This critical care time included obtaining a history; examining the patient; pulse oximetry; ordering and review of studies; arranging urgent treatment with development of a management plan; evaluation of patient's response to treatment; frequent reassessment; and discussions with other providers. It was exclusive of separately billable procedures and treating other patients and teaching time. Please see Assessment and Plan section and the rest of the note for further information on patient assessment and treatment Subjective Date/time seen: 12/23/19 12:21 Interval history: Reason for consult: Acute respiratory failure due to code, pneumothorax, emphysema 12/23/2019: Patient remains on 90% FiO2 and 60 L flow rate on high-flow therapy, also on 100% non-rebreather mass. O2 sats hovering between 85-93%. Patient denies any shortness of breath, chest pain
--- NOTE | 2019-12-23 12:45 | PCDIET ---
ICU Rounding Note: Patient continues on regular diet with Glucerna Shake BID. Consumed 58% of meals 12/22/19 + Glucerna Shakes. Last recorded weight is 79kg which is stable. Bowel Motility: Large BM this morning, per RN. Labs Reviewed: Hgb (12.3), Hct (38.1), Glu (160), BUN (25), Cr (0.5), Ca (8.1), Alb (2.7) Meds Noted: Albuterol, Xanax, Tums, Cefepime, Pepcid Ac, Atrovent, Solu Medrol, Miralax, Vancomycin Additional Notes: No skin breakdown reported. Following daily in ICU rounds. Assessing/reassessing every 7 days.
[2019-12-23] MEDS: ALPRAZolam 0.25 MG TABLET PO (19:40)
[2019-12-23] MEDS: MELATONIN 5 MG TABLET PO (19:41)
[2019-12-24] VITALS (22 sets, daily range): BP systolic 116–157; BP diastolic 62–103; PULSE 59–84; RESP 3–30; TEMP 36.3–36.7; O2SAT 88–100
[2019-12-24] MEDS: ALBUTEROL SULFATE NEB 2.5 MG/0.5 ML INH INHALATION ×4 (02:45→20:18)
[2019-12-24] MEDS: IPRATROPIUM BR 0.02% INH SOLN 0.5 MG/2.5 ML VIAL INHALATION ×4 (02:46→20:19)
[2019-12-24 05:11] LABS: Hematocrit 36.2 % (42.0-52.0); Hemoglobin 11.8 g/dL (14.0-18.0); Mean Corpuscular HGB Conc 32.6 g/dl (32-36); Mean Corpuscular Hemoglobin 28.9 pg (26-34); Mean Corpuscular Volume 88.7 fl (80-100); Mean Platelet Volume 9.7 fl (7.4-10.4); Platelet Count Result 203 k/mm3 (150-375); Red Blood Count 4.08 M/mm3 (4.6-6.20); Red Cell Distribution Width 14.8 % (11.5-14.5); White Blood Count 15.3 K/mm3 (4.5-10.0)
[2019-12-24] MEDS: methylPREDNISolone SOD SUCC 125 MG VIAL 60 MG IV PUSH ×4 (05:16→23:48)
[2019-12-24] MEDS: CENTRAL LINE FLUSH 10 ML IV PUSH ×3 (05:16→20:42)
[2019-12-24 05:47] LABS: Anion Gap 5 mmol/L (8-16); Blood Urea Nitrogen 34 mg/dL (9-20); CRP 12.3 mg/dL (<1.0); Calcium 8.3 mg/dL (8.4-10.2); Carbon Dioxide 30 mmol/L (22-30); Chloride 102 mmol/L (98-107); Estimated CRCL calculation 89 ml/min; Estimated Glomerular Filt Rate > 60; Glucose 171 mg/dL (75-110); Sodium 137 mmol/L (137-145)
[2019-12-24] MEDS: ENOXAPARIN 40 MG/0.4 ML SYRINGE SUB-Q ×2 (08:39→20:39)
[2019-12-24] MEDS: ASPIRIN 81 MG ENTERIC TABLET PO (08:39)
[2019-12-24] MEDS: ATORVASTATIN 20 MG TABLET PO (08:39)
[2019-12-24] MEDS: FAMOTIDINE 10 MG TABLET PO ×2 (08:40)
[2019-12-24] MEDS: VERAPAMIL HCL 180 MG TABLET ER PO ×2 (08:41→20:36)
[2019-12-24] MEDS: TAMSULOSIN HCL 0.4 MG CAPSULE PO (08:41)
[2019-12-24] MEDS: polyethylene glycoL 3350 17 GM POWD.PACK PO (08:41)
--- NOTE | 2019-12-24 09:01 | WPDINTPN ---
Progress Note: A&P Assessment and Plan (1) Acute respiratory failure due to COVID-19: Code(s): U07.1 - COVID-19; J96.00 - Acute respiratory failure, unspecified whether with hypoxia or hypercapnia Status: Acute Assessment and Plan: Acute respiratory failure secondary to COVID-19 with baseline COPD, right lobectomy and history of lung cancer SARS-CoV-2 PCR positive Chest x-ray shows worsening left-sided infiltrates - CRP and ferritin levels trending up On 12/23/2019 - discussed with hospitalist and patient was started on cefepime and vancomycin ( 12/23/2019) Patient is on Airborne, Droplet and Contact Isolation Dexamethasone completed on 01/09/2020 - completed course of Remdesivir Convalscent plasma 1 unit given on 12/0812/23/2019: Venous Dopplers were negative for DVT bilaterally (2) Pulmonary emphysema: Qualifiers: Emphysema type: unspecified Qualified Code(s): J43.9 - Emphysema, unspecified Code(s): J43.9 - Emphysema, unspecified Status: Acute Assessment and Plan: started on Solu-Medrol 12/22/2019 continue bronchodilators - continue oxygen as above (3) CAD (coronary artery disease): Code(s): I25.10 - Atherosclerotic heart disease of [place] coronary artery without angina pectoris Status: Acute Assessment and Plan: aspirin and statin (4) HLD (hyperlipidemia): Code(s): E78.5 - Hyperlipidemia, unspecified Status: Acute Assessment and Plan: continue statin (5) HTN (hypertension): Qualifiers: Hypertension type: essential hypertension Qualified Code(s): I10 - Essential (primary) hypertension Code(s): I10 - Essential (primary) hypertension Status: Acute Assessment and Plan: blood pressure controlled at this time on home verapamil dose (6) DVT prophylaxis: Code(s): Z29.9 - Encounter for prophylactic measures, unspecified Status: Acute Assessment and Plan: Lovenox 40 mg is subcu q.12 hours (7) Dietary counseling and surveillance: Code(s): Z71.3 - Dietary counseling and surveillance Status: Acute Assessment and Plan: patient tolerating diabetic diet and has a good appetite, no loss of smell or taste - contipation: on Miralax - last bowel movement on 12/19/2019 stress ulcer prophylaxis: Famotidine Additional Plan discussed with patient's and patient updated them with his condition and plan of care. Both of them are aware that he was started on antibiotics for worsening chest x-ray it. 12/22/2019 I discussed with patient and his in detail regarding him being hypoxic and that he may require intubation. Both patient and his requested that he be a do not intubate and do not resuscitate, furthermore the patient stated if he improves well in good, if he passes away he is fine with that too. Code Status - DNR/DNI Total Critical Care Time - 32 minutes Due to a high probability of clinically significant, life threatening deterioration, the patient required my highest level of preparedness to intervene emergently and I personally spent this critical care time directly and personally managing the patient. This critical care time included obtaining a history; examining the patient; pulse oximetry; ordering and review of studies; arranging urgent treatment with development of a management plan; evaluation of patient's response to treatment; frequent reassessment; and discussions with other providers. It was exclusive of separately billable procedures and treating other patients and teaching time. Please see Assessment and Plan section and the rest of the note for further information on patient assessment and treatment Subjective Date/time seen: 12/24/19 09:01 Interval history: Reason for consult: Acute respiratory failure due to code, pneumothorax, emphysema - 12/23/2019: Venous Dopplers negative for DVT 12/24/2019: P
--- NOTE | 2019-12-24 11:25 | PCFNICU ---
ICU Rounding Note: Patient consumed 87% of meals yesterday on regular diet + Glucerna Shake BID. Consumed 50% of breakfast today, per RN. Last recorded weight is 79.0kg which is stable. Bowel Motility: Last documented BM on 12/23/19. Labs Reviewed: Hgb (11.8), Hct (36.2), Glu (171), BUN (34), Cr (0.6), Ca (8.3) Meds Noted: Albuterol, Tums, Cefepime, Pepcid Ac, Atrovent, Solu Medrol, Miralax, Vancomycin Additional Notes: No documented skin breakdown. Following daily in ICU rounds. Assessing/reassessing every 7 days.
[2019-12-24] MEDS: ALPRAZolam 0.25 MG TABLET PO (13:36)
--- NOTE | 2019-12-24 17:11 | PM.IMPN ---
Progress Note: A&P Assessment and Plan (1) Acute respiratory failure with hypoxia: Code(s): J96.01 - Acute respiratory failure with hypoxia Status: Acute Assessment and Plan: Patient with significant oxygen requirement related to COVID complicated by his COPD. ABG confirming that this is all hypoxia. No evidence of CO2 retention. Patient was admitted to the ICU. Completed Remdesivir on 12/12 and dexamethasone on 12/17. He also received convalescent plasma 12/08. CXR reviewed today and showing persistent worsening of the left lung airspace disease. No evidence of aspiration. LE venous doppler negative. Continue Bronchodilators, steroids and abx. Wean oxygen as tolerated. Appreciate store worker input. (2) COVID-19: Code(s): U07.1 - COVID-19 Status: Acute Assessment and Plan: Patient's approximate onset of symptoms started around 12/05/19. He tested positive for COVID on December 06. Dexamethasone and Remdesivir were started 12/09/19. Convalescent plasma given 12/09/2019. Unclear on why he is worsening despite being so far out from primary exposure. Added Solu-Medrol, Nebs, and broad spectrum ABX. Speech therapy evaluated the patient and there were no issues. CRP better at 12. Patient appears to be better again today. Discussed with store worker. Still has a considerable O2 requirement. Continue supportive care. Wean O2 as tolerated. Check Echo. Lasix x 1. (3) Pulmonary emphysema: Qualifiers: Emphysema type: unspecified Qualified Code(s): J43.9 - Emphysema, unspecified Code(s): J43.9 - Emphysema, unspecified Status: Acute Assessment and Plan: Patient has a long history of tobacco use and subsequent emphysema. Albuterol and Atrovent now scheduled and appears to be having benefit from this therapy. Solu-Medrol started as well. Wean oxygen as tolerated. Continue supportive care (4) HTN (hypertension): Qualifiers: Hypertension type: essential hypertension Qualified Code(s): I10 - Essential (primary) hypertension Code(s): I10 - Essential (primary) hypertension Status: Acute Assessment and Plan: BP well controlled (116/103 probably an error). Continue verapamil with parameters in place. Continue to monitor (5) Pneumothorax: Qualifiers: Pneumothorax type: other pneumothorax Qualified Code(s): J93.83 - Other pneumothorax Code(s): J93.9 - Pneumothorax, unspecified Status: Deleted Assessment and Plan: Chest x-ray showing also a small right apical pneumothorax on admission. 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 Serial CXR show that the PTX has resolved. Continue to monitor. (6) DVT prophylaxis: Code(s): Z29.9 - Encounter for prophylactic measures, unspecified Status: Acute Assessment and Plan: Lovenox Subjective Date/time seen: 12/24/19 17:11 Interval history: Date of service: 12/22 79yo male here for acute respiratory failure from COVID. Maintaining his pulse ox better today per RN. No CP. He does state that he was more SOB with difficult getting around even prior to becoming ill. Eating okay - skipped lunch but denies feeling nauseous. Exam Narrative: Exam Narrative: AF 97.3 122/84 70 25 100% high flow therapy with NRB mask Gen - NARD lying almost in position in bed Chest - bibasilar dry inspiratory crackles, mildly tachypneic if he talks too much CV - RRR S1-S2. Tele showing occasional PVCs Abd - soft, NT/ND, +BS Ext - no pedal edema. Psych - normal mood and affect. Skin - warm and dry. Objective Data Vital Signs Vital Signs: Vital Signs - 24 hr 12/23/19 17:36 12/23/19 18:00 12/23/19 19:52 Temperature Pulse Rate 72 72 66 Respiratory Rate 21 H 19 14 Blood Pressure 119/65 Pulse Oximetry 94 93 93 12/23/19 20:00 12/23/19 20:50 12/23/19 22:00 Temperature 97.3 F L Pulse Rate 75 69 84 R
[2019-12-24] MEDS: FUROSEMIDE INJ 40 MG/4 ML VIAL IV PUSH (18:24)
[2019-12-24] MEDS: ACETAMINOPHEN 325 MG TABLET 650 MG PO (18:24)
[2019-12-24] MEDS: MELATONIN 5 MG TABLET PO (20:38)
[2019-12-24 22:30] LABS: Vancomycin Trough 9.9 ug/mL (10.0-20.0)
[2019-12-25] VITALS (22 sets, daily range): BP systolic 132–160; BP diastolic 61–98; PULSE 58–87; RESP 17–31; TEMP 35.9–36.4; O2SAT 88–98
--- NOTE | 2019-12-25 | ECHO_ITS ---
Patient Info Name: Fidel Nelson Age: 79 years : 1940 Gender: Male Ht: 70 in Wt: 174 lbs BSA: 1.98 m2 HR: 69 bpm BP: 141 / 81 mmHg Heart Rhythm: Sinus Rhythm Technical Quality: Good Exam Date: 12/25/2019 8:15 AM Exam Location: [facility] Pul[facility] Patient Status: Inpatient Admit Date: 12/09/2019 Staff Ordering Physician: Moisés Campbell MD Computer Animator: Laurence Hernandez RDCS Attending Provider: Moisés Campbell MD Exam Type: CA echo doppler color flow Study Info Complete two-dimensional, color flow and Doppler transthoracic echocardiogram is performed. Summary 1. Complete two-dimensional, color flow and Doppler transthoracic echocardiogram is performed. 2. Left ventricular chamber dimension is normal. 3. Left ventricular systolic function is normal, estimated at 65-70%. 4. There is mildly increased left ventricular wall thickness. 5. Left ventricular septal wall motion is normal. 6. The left ventricular diastolic function is grade I diastolic dysfunction. 7. Left atrial chamber dimension is moderately enlarged. 8. There is mild aortic valve sclerosis. 9. There is mild aortic valve calcification. 10. The mitral valve has thickened leaflets and calcified annulus. 11. There is mild mitral valve regurgitation. 12. There is mild pulmonic regurgitation. Left Ventricle Left ventricular chamber dimension is normal. Left ventricular systolic function is normal, estimated at 65-70%. There is mildly increased left ventricular wall thickness. Left ventricular septal wall motion is normal. The left ventricular diastolic function is grade I diastolic dysfunction. Right Ventricle Right ventricular chamber dimension is normal. Right ventricular systolic function is normal. Left Atria Left atrial chamber dimension is moderately enlarged. Right Atria Right atrial chamber dimension is normal. Atrial Septum Intact interatrial septum visualized by color flow imaging. Aortic Valve The aortic valve is trileaflet. There is mild aortic valve sclerosis. There is no aortic valve stenosis. There is trace aortic valve regurgitation. There is mild aortic valve calcification. Pulmonic Valve The pulmonic valve is normal. There is no pulmonic valve stenosis. There is mild pulmonic regurgitation. Mitral Valve The mitral valve has thickened leaflets and calcified annulus. There is no mitral valve stenosis. There is mild mitral valve regurgitation. Tricuspid Valve The tricuspid valve leaflets are normal. There is no significant tricuspid valve stenosis. There is trace tricuspid valve regurgitation. No pulmonary hypertension, estimated pulmonary arterial systolic pressure is 10 mmHg. Pericardium/Pleural The pericardium appears normal. There is no pericardial effusion. Inferior Vena Cava Normal inferior vena cava with >50% collapse upon inspiration consistent with normal right atrial pressure, 5 mmHg. Aorta The aortic root size at the sinus of Valsalva is normal. The prox ascending aorta size is normal. Left Ventricular Outflow Tract Name Value Normal LVOT 2D LVOT Diameter 2.0 cm LVOT Doppler
[2019-12-25] MEDS: ALPRAZolam 0.25 MG TABLET PO ×3 (00:54→19:56)
[2019-12-25] MEDS: ALBUTEROL SULFATE NEB 2.5 MG/0.5 ML INH INHALATION ×4 (02:20→20:11)
[2019-12-25] MEDS: IPRATROPIUM BR 0.02% INH SOLN 0.5 MG/2.5 ML VIAL INHALATION ×4 (02:21→20:10)
[2019-12-25] MEDS: methylPREDNISolone SOD SUCC 125 MG VIAL 60 MG IV PUSH ×3 (05:17→23:25)
[2019-12-25] MEDS: CENTRAL LINE FLUSH 10 ML IV PUSH ×3 (05:18→23:26)
[2019-12-25 05:40] LABS: Basophils Percent Auto 0.1 % (0.2-1.2); Hematocrit 35.9 % (42.0-52.0); Hemoglobin 11.8 g/dL (14.0-18.0); Immature Granulocyte Absolute 0.16 K/mm3 (0.00-0.031); Immature Granulocyte Percent A 1.2 % (0-0.5); Lymphocytes Absolute Auto 0.52 K/mm3 (0.9-3.2); Lymphocytes Percent Auto 3.8 % (18.3-44.2); Mean Corpuscular HGB Conc 32.9 g/dl (32-36); Mean Corpuscular Hemoglobin 28.6 pg (26-34); Mean Corpuscular Volume 86.9 fl (80-100); Mean Platelet Volume 9.5 fl (7.4-10.4); Monocytes Absolute Auto 0.4 K/mm3 (0.1-0.6); Neutrophils Absolute Auto 12.7 K/mm3 (1.3-6.7); Neutrophils Percent Auto 91.9 % (45.5-73.1); Platelet Count Result 213 k/mm3 (150-375); Red Blood Count 4.13 M/mm3 (4.6-6.20); Red Cell Distribution Width 14.6 % (11.5-14.5); White Blood Count 13.8 K/mm3 (4.5-10.0)
[2019-12-25 05:57] LABS: Potassium 3.6 mmol/L (3.4-5.0)
[2019-12-25 06:06] LABS: Anion Gap 6 mmol/L (8-16); Blood Urea Nitrogen 35 mg/dL (9-20); CRP 4.8 mg/dL (<1.0); Calcium 8.2 mg/dL (8.4-10.2); Carbon Dioxide 30 mmol/L (22-30); Chloride 104 mmol/L (98-107); Estimated CRCL calculation 89 ml/min; Estimated Glomerular Filt Rate > 60; Glucose 145 mg/dL (75-110); Magnesium 2.5 mg/dL (1.6-2.3); Phosphorus 3.8 mg/dL (2.5-4.5); Sodium 140 mmol/L (137-145)
[2019-12-25] MEDS: polyethylene glycoL 3350 17 GM POWD.PACK PO (09:18)
[2019-12-25] MEDS: VERAPAMIL HCL 180 MG TABLET ER PO ×2 (09:19→19:57)
[2019-12-25] MEDS: TAMSULOSIN HCL 0.4 MG CAPSULE PO (09:19)
[2019-12-25] MEDS: ASPIRIN 81 MG ENTERIC TABLET PO (09:19)
[2019-12-25] MEDS: ATORVASTATIN 20 MG TABLET PO (09:19)
[2019-12-25] MEDS: ENOXAPARIN 40 MG/0.4 ML SYRINGE SUB-Q (09:19)
[2019-12-25] MEDS: FAMOTIDINE 10 MG TABLET PO ×2 (09:20→19:56)
--- NOTE | 2019-12-25 11:06 | PCFNICU ---
ICU Rounding Note: Pt current nutrition is Regular, Level 7. Nutrition recommendation:Agree Last recorded weight is 78.5 kg down from 78.7 kg on admit. Bowel Motility:+BM reported 12/22. Labs Reviewed: Hgb 11.8,Hct 35.9,BUN 35,Cr 0.6,Mg 2.5 Meds Noted:Lovenox,Pepsid,Solu-Medrol,Miralax,Vanco Additional Notes: Patient is tolerating Regular diet, eating 80% of tray today and 240 ml of Glucerna shake. ECHO has been ordered. Agree with diet orders/supplements. Following daily in ICU rounds. Assessing/reassessing every 7 days.
--- NOTE | 2019-12-25 11:58 | WPDINTPN ---
Progress Note: A&P Assessment and Plan (1) Acute respiratory failure due to COVID-19: Code(s): U07.1 - COVID-19; J96.00 - Acute respiratory failure, unspecified whether with hypoxia or hypercapnia Status: Acute Assessment and Plan: Acute respiratory failure secondary to COVID-19 with baseline COPD, right lobectomy and history of lung cancer SARS-CoV-2 PCR positive Chest x-ray shows worsening left-sided infiltrates with inflammatory markers noticed to be trending up. He has been started empirically on cefepime and vancomycin ( 12/23/2019). cultures have been negative so far. Patient is on Airborne, Droplet and Contact Isolation Wean oxygen if tolerated. Wean FiO2 1st and keep the flow get a positive pressure. Dexamethasone completed on 01/09/2020 - completed course of Remdesivir Convalscent plasma 1 unit given on 12/0812/23/2019: Venous Dopplers were negative for DVT bilaterally (2) Pulmonary emphysema: Qualifiers: Emphysema type: unspecified Qualified Code(s): J43.9 - Emphysema, unspecified Code(s): J43.9 - Emphysema, unspecified Status: Acute Assessment and Plan: started on Solu-Medrol 12/22/2019. Will start tapering the dose to 60 mg 3 times a day today. continue bronchodilators - continue oxygen as above. Wean oxygen if tolerated. Oxygen inhalation to keep oxygen saturation target of more than 90%. (3) CAD (coronary artery disease): Code(s): I25.10 - Atherosclerotic heart disease of [place] coronary artery without angina pectoris Status: Acute Assessment and Plan: aspirin and statin (4) HLD (hyperlipidemia): Code(s): E78.5 - Hyperlipidemia, unspecified Status: Acute Assessment and Plan: continue statin (5) HTN (hypertension): Qualifiers: Hypertension type: essential hypertension Qualified Code(s): I10 - Essential (primary) hypertension Code(s): I10 - Essential (primary) hypertension Status: Acute Assessment and Plan: blood pressure controlled at this time on home verapamil dose (6) DVT prophylaxis: Code(s): Z29.9 - Encounter for prophylactic measures, unspecified Status: Acute Assessment and Plan: Lovenox 40 mg subcutaneously daily (7) Dietary counseling and surveillance: Code(s): Z71.3 - Dietary counseling and surveillance Status: Acute Assessment and Plan: patient tolerating diabetic diet and has a good appetite, no loss of smell or taste - contipation: on Miralax stress ulcer prophylaxis: Famotidine Additional Plan 12/22/2019 Bias Cutter discussed with patient and his in detail regarding him being hypoxic and that he may require intubation. Both patient and his requested that he be a do not intubate and do not resuscitate, furthermore the patient stated if he improves well in good, if he passes away he is fine with that too. Code Status - DNR/DNI Total Critical Care Time - 35 minutes Due to a high probability of clinically significant, life threatening deterioration, the patient required my highest level of preparedness to intervene emergently and I personally spent this critical care time directly and personally managing the patient. This critical care time included obtaining a history; examining the patient; pulse oximetry; ordering and review of studies; arranging urgent treatment with development of a management plan; evaluation of patient's response to treatment; frequent reassessment; and discussions with other providers. It was exclusive of separately billable procedures and treating other patients and teaching time. Please see Assessment and Plan section and the rest of the note for further information on patient assessment and treatment Subjective Date/time seen: 12/25/19 11:58 He is on high-flow oxygen with 90% FiO2 and 68 L. He does use non-rebreather on top of it. He is feelin
--- NOTE | 2019-12-25 15:28 | PM.IMPN ---
Progress Note: A&P Assessment and Plan (1) Acute respiratory failure with hypoxia: Code(s): J96.01 - Acute respiratory failure with hypoxia Status: Acute Assessment and Plan: Patient with significant oxygen requirement related to COVID complicated by his COPD. ABG showing no evidence of CO2 retention. Patient was admitted to the ICU. Completed Remdesivir on 12/12 and dexamethasone on 12/17. He also received convalescent plasma 12/08. CXR reviewed today and showing no real change. No evidence of aspiration. LE venous doppler negative. Continue Bronchodilators, steroids and abx. Wean oxygen as tolerated. Appreciate glue wheel operator input. Pulmonary consult. Lasix repeated today and Solu-Medrol being weaned. (2) COVID-19: Code(s): U07.1 - COVID-19 Status: Acute Assessment and Plan: Patient's approximate onset of symptoms started around 12/05/19. He tested positive for COVID on December 06. Dexamethasone and Remdesivir were started 12/09/19. Convalescent plasma given 12/09/2019. Unclear on why he is worsening despite being so far out from primary exposure. Added Solu-Medrol, Nebs, and broad spectrum ABX. Speech therapy evaluated the patient and there were no issues. Echo showing EF 65% and grade I diastolic dysfunction. CRP better at 5. Lasix once given on 12/23 with good UOP. Still has a considerable O2 requirement. Continue supportive care. Wean O2 as tolerated. (3) Pulmonary emphysema: Qualifiers: Emphysema type: unspecified Qualified Code(s): J43.9 - Emphysema, unspecified Code(s): J43.9 - Emphysema, unspecified Status: Acute Assessment and Plan: Patient has a long history of tobacco use and subsequent emphysema. Albuterol and Atrovent inhalers have been ordered as needed but was not receiving - this was scheduled on 12/22/19 and he is having benefit from this therapy. Solu-Medrol started as well. Wean oxygen as tolerated. Continue supportive care. As above (4) HTN (hypertension): Qualifiers: Hypertension type: essential hypertension Qualified Code(s): I10 - Essential (primary) hypertension Code(s): I10 - Essential (primary) hypertension Status: Acute Assessment and Plan: BP more elevated probably related to the steroids. Continue verapamil with parameters in place. Continue to monitor (5) Pneumothorax: Qualifiers: Pneumothorax type: other pneumothorax Qualified Code(s): J93.83 - Other pneumothorax Code(s): J93.9 - Pneumothorax, unspecified Status: Deleted Assessment and Plan: Chest x-ray showing also a small right apical pneumothorax on admission. 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 Serial CXR show that the PTX has resolved. Continue to monitor. (6) DVT prophylaxis: Code(s): Z29.9 - Encounter for prophylactic measures, unspecified Status: Acute Assessment and Plan: Lovenox Subjective Date/time seen: 12/25/19 15:28 Interval history: Date of service: 12/24 79yo male here for acute respiratory failure from [facility]. He feels about the same. He gets more SOB even with mild exertion. No CP. No significnat cough. Eating off/on. Exam Narrative: Exam Narrative: AF 96.8 160/89 82 22 88% high flow therapy with NRB mask Gen - NARD lying left side downsemi-recumbent Chest - bibasilar dry inspiratory crackles CV - RRR S1-S2. Tele showing occasional PVCs Abd - soft, NT/ND, +BS Ext - no pedal edema. Psych - normal mood and affect. Skin - warm and dry. Objective Data Vital Signs Vital Signs: Vital Signs - 24 hr 12/24/19 16:00 12/24/19 18:00 12/24/19 20:00 Temperature 97.3 F L 97.8 F Pulse Rate 70 71 74 Respiratory Rate 25 H 26 H 25 H Blood Pressure 122/84 140/76 134/76 Pulse Oximetry 100 91 96 12/24/19 20:17 12/24/19 20:19 12/24/19 20:25 Temperature Pulse Rate 76 76 71 Respiratory Rate 21 H 17 20
[2019-12-25] MEDS: FUROSEMIDE INJ 40 MG/4 ML VIAL IV PUSH (17:45)
[2019-12-25] MEDS: MELATONIN 3 MG TABLET PO (19:56)
[2019-12-25] MEDS: MELATONIN 5 MG TABLET PO (19:57)
[2019-12-25] MEDS: ACETAMINOPHEN 325 MG TABLET 650 MG PO (23:25)
[2019-12-26] VITALS (24 sets, daily range): BP systolic 123–166; BP diastolic 70–118; PULSE 58–84; RESP 10–26; TEMP 36.4–36.6; O2SAT 88–97
[2019-12-26] MEDS: ALBUTEROL SULFATE NEB 2.5 MG/0.5 ML INH INHALATION ×4 (02:14→21:12)
[2019-12-26] MEDS: IPRATROPIUM BR 0.02% INH SOLN 0.5 MG/2.5 ML VIAL INHALATION ×4 (02:14→21:12)
[2019-12-26 04:47] LABS: Hematocrit 37.3 % (42.0-52.0); Hemoglobin 11.8 g/dL (14.0-18.0); Mean Corpuscular HGB Conc 31.6 g/dl (32-36); Mean Corpuscular Hemoglobin 28.2 pg (26-34); Mean Corpuscular Volume 89.2 fl (80-100); Mean Platelet Volume 9.9 fl (7.4-10.4); Platelet Count Result 204 k/mm3 (150-375); Red Blood Count 4.18 M/mm3 (4.6-6.20); Red Cell Distribution Width 14.6 % (11.5-14.5); White Blood Count 12.4 K/mm3 (4.5-10.0)
[2019-12-26] MEDS: CENTRAL LINE FLUSH 10 ML IV PUSH ×3 (04:59→22:29)
[2019-12-26] MEDS: methylPREDNISolone SOD SUCC 125 MG VIAL 60 MG IV PUSH ×2 (05:00→13:50)
[2019-12-26 05:02] LABS: Anion Gap 4 mmol/L (8-16); Blood Urea Nitrogen 37 mg/dL (9-20); Calcium 8.3 mg/dL (8.4-10.2); Carbon Dioxide 31 mmol/L (22-30); Chloride 102 mmol/L (98-107); Estimated CRCL calculation 89 ml/min; Estimated Glomerular Filt Rate > 60; Glucose 143 mg/dL (75-110); Sodium 137 mmol/L (137-145)
[2019-12-26] MEDS: ACETAMINOPHEN 325 MG TABLET 650 MG PO ×3 (06:37→20:15)
[2019-12-26] MEDS: VERAPAMIL HCL 180 MG TABLET ER PO ×2 (08:13→20:16)
[2019-12-26] MEDS: ASPIRIN 81 MG ENTERIC TABLET PO (08:13)
[2019-12-26] MEDS: FAMOTIDINE 10 MG TABLET PO ×2 (08:13→20:16)
[2019-12-26] MEDS: polyethylene glycoL 3350 17 GM POWD.PACK PO (08:14)
[2019-12-26] MEDS: ENOXAPARIN 40 MG/0.4 ML SYRINGE SUB-Q (08:14)
[2019-12-26] MEDS: TAMSULOSIN HCL 0.4 MG CAPSULE PO (08:15)
[2019-12-26] MEDS: ATORVASTATIN 20 MG TABLET PO (08:16)
--- NOTE | 2019-12-26 09:36 | PM.IMPN ---
Progress Note: A&P Assessment and Plan (1) Acute respiratory failure with hypoxia: Code(s): J96.01 - Acute respiratory failure with hypoxia Status: Acute Assessment and Plan: Patient with significant oxygen requirement related to COVID complicated by his COPD. ABG showing no evidence of CO2 retention. Patient was admitted to the ICU. Completed Remdesivir on 12/12 and dexamethasone on 12/17. He also received convalescent plasma 12/08. CXR reviewed today and showing no real change despite the Lasix. No evidence of aspiration. LE venous doppler negative. Continue Bronchodilators, steroids and abx. Wean oxygen as tolerated. Appreciate suture winder hand input. Pulmonary following. Repeat Lasix. (2) COVID-19: Code(s): U07.1 - COVID-19 Status: Acute Assessment and Plan: Patient's approximate onset of symptoms started around 12/05/19. He tested positive for COVID on December 06. Dexamethasone and Remdesivir were started 12/09/19. Convalescent plasma given 12/09/19. Unclear on why his symptoms are persistent but probbably related to underlying COPD (he states he was having CAPELLAN with minimal exertion prior to becoming ill). Speech therapy evaluated the patient and there were no issues. Echo showing EF 65% and grade I diastolic dysfunction. CRP better at 5 yesterday. Lasix once given on 12/23 and 12/24 with good UOP. Patient appears to be better and was noted to be to 100% pulse ox. Wean O2 as tolerated. Continue Solu-Medrol, Nebs, and broad spectrum ABXContinue. Continue supportive care. (3) Pulmonary emphysema: Qualifiers: Emphysema type: unspecified Qualified Code(s): J43.9 - Emphysema, unspecified Code(s): J43.9 - Emphysema, unspecified Status: Acute Assessment and Plan: Patient has a long history of tobacco use and subsequent emphysema. No wheezing. Continue Albuterol and Atrovent. Continue Solu-Medrol. Wean oxygen as tolerated. Continue supportive care (4) HTN (hypertension): Qualifiers: Hypertension type: essential hypertension Qualified Code(s): I10 - Essential (primary) hypertension Code(s): I10 - Essential (primary) hypertension Status: Acute Assessment and Plan: BP well controlled. He lies on the BP cuff which results in false reading (145/118 with repeat BP after readjustment a few minutes later of 135/83). Continue verapamil with parameters in place. Continue to monitor (5) Pneumothorax: Qualifiers: Pneumothorax type: other pneumothorax Qualified Code(s): J93.83 - Other pneumothorax Code(s): J93.9 - Pneumothorax, unspecified Status: Deleted Assessment and Plan: Chest x-ray showing also a small right apical pneumothorax on admission. 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 Serial CXR show that the PTX has resolved. Continue to monitor. (6) DVT prophylaxis: Code(s): Z29.9 - Encounter for prophylactic measures, unspecified Status: Acute Assessment and Plan: Lovenox Subjective Date/time seen: 12/26/19 09:36 Interval history: Date of service: 12/25 79yo male here for acute respiratory failure from [facility]. No issues overnight. Eating okay. No CP or cough. No SOB at rest but becomes dyspneic even with mild exertion. He takes his NRB mask off frequently. Slept well. Exam Narrative: Exam Narrative: AF 97.6 135/83 74 21 92% high flow therapy with NRB mask Gen - NARD lying left side downsemi-recumbent Chest - bibasilar L>>R dry inspiratory crackles, mild conversational dyspnea. CV - RRR S1-S2. Tele showing no significant dysrhythmias Abd - soft, NT/ND, +BS Ext - no pedal edema. Psych - normal mood and affect. Skin - warm and dry. Objective Data Vital Signs Vital Signs: Vital Signs - 24 hr 12/25/19 10:00 12/25/19 11:36 12/25/19 12:00 Temperature Pulse Rate 82 87 79 Respiratory Rate 20 26 H Blood Pressure 1
[2019-12-26] MEDS: CALCIUM CARBONATE (TUMS) 500 MG (200 MG ELEMENTAL) PO (10:32)
[2019-12-26] MEDS: FUROSEMIDE INJ 40 MG/4 ML VIAL IV PUSH (10:32)
[2019-12-26] MEDS: ALPRAZolam 0.25 MG TABLET PO ×2 (10:39→20:15)
--- NOTE | 2019-12-26 11:33 | WPDINTPN ---
Progress Note: A&P Assessment and Plan (1) Acute respiratory failure due to COVID-19: Code(s): U07.1 - COVID-19; J96.00 - Acute respiratory failure, unspecified whether with hypoxia or hypercapnia Status: Acute Assessment and Plan: Acute respiratory failure secondary to COVID-19 with baseline COPD, right lobectomy and history of lung cancer. He might be having a component of chronic respiratory failure as well as he has significant exertional dyspnea which has been progressively getting worse. SARS-CoV-2 PCR positive. Chest x-ray shows worsening left-sided infiltrates with inflammatory markers noticed to be trending up. He has been started empirically on cefepime and vancomycin ( 12/23/2019). cultures have been negative so far. Deescalate antibiotics and potentially stop vancomycin in 1-2 days if cultures remain negative. Patient is on Airborne, Droplet and Contact Isolation Wean oxygen if tolerated. Wean FiO2 1st to a reasonable limit and then start decreasing the floor. Dexamethasone completed on 01/09/2020 Completed course of Remdesivir Convalscent plasma 1 unit given on 12/08 Echo did not show any significant left ventricular systolic dysfunction. It does show diastolic dysfunction grade 1. No pulmonary hypertension on echocardiogram. Will consider getting a limited echo again to rule out any shunt both intracardiac and intrapulmonary. 12/23/2019: Venous Dopplers were negative for DVT bilaterally He has received a dose of Lasix with 40 mg today. (2) Pulmonary emphysema: Qualifiers: Emphysema type: unspecified Qualified Code(s): J43.9 - Emphysema, unspecified Code(s): J43.9 - Emphysema, unspecified Status: Acute Assessment and Plan: started on Solu-Medrol 12/22/2019. Continue steroid taper depending upon his clinical response. continue bronchodilators - continue oxygen as above. Wean oxygen if tolerated. Oxygen inhalation to keep oxygen saturation target of more than 90%. (3) CAD (coronary artery disease): Code(s): I25.10 - Atherosclerotic heart disease of [place] coronary artery without angina pectoris Status: Acute Assessment and Plan: aspirin and statin (4) HLD (hyperlipidemia): Code(s): E78.5 - Hyperlipidemia, unspecified Status: Acute Assessment and Plan: continue statin (5) HTN (hypertension): Qualifiers: Hypertension type: essential hypertension Qualified Code(s): I10 - Essential (primary) hypertension Code(s): I10 - Essential (primary) hypertension Status: Acute Assessment and Plan: blood pressure controlled at this time on home verapamil dose (6) DVT prophylaxis: Code(s): Z29.9 - Encounter for prophylactic measures, unspecified Status: Acute Assessment and Plan: Lovenox 40 mg subcutaneously daily (7) Dietary counseling and surveillance: Code(s): Z71.3 - Dietary counseling and surveillance Status: Acute Assessment and Plan: patient tolerating diabetic diet and has a good appetite. - contipation: on Miralax stress ulcer prophylaxis: Famotidine Additional Plan 12/22/2019 Measuring Machine Tender discussed with patient and his in detail regarding him being hypoxic and that he may require intubation. Both patient and his requested that he be a do not intubate and do not resuscitate. Code Status - DNR/DNI Total Critical Care Time - 35 minutes Due to a high probability of clinically significant, life threatening deterioration, the patient required my highest level of preparedness to intervene emergently and I personally spent this critical care time directly and personally managing the patient. This critical care time included obtaining a history; examining the patient; pulse oximetry; ordering and review of studies; arranging urgent treatment with development of a management plan; evaluation of
--- NOTE | 2019-12-26 12:53 | PC.NURSE ---
Patient up to chair per MD order, patient winded after transfer and took approximately 20 minutes for oxygen saturations to recover to 88%, this RN stayed in room for entire time until patient improved saturations
--- NOTE | 2019-12-26 19:56 | PM.CNPUL ---
Assessment and Plan Assessment and plan (1) Acute respiratory failure with hypoxia: Code(s): J96.01 - Acute respiratory failure with hypoxia Status: Acute Assessment and Plan: He has developed diffuse pulmonary fibrosis as a complication of COVID-19. There are some inflammatory infiltrates in the lower lobes and a trial of pulses dose solumedrol 125 mg IV Q6h for 5 days is warranted to see if hypoxemia is somewhat reversible. I see no clinical signs of CHF or volume overload. Acute bacterial is also less likely. It is unlikely that he is still infected with COVID and would recommend retesting SARS-CoV-2 and removing droplet precautions if negative Short and Senior Living Prognosis is very poor. Continue Albuterol 2.5 mg /Atrovent 0.5 mg Nebs scheduled Q6h (2) COVID-19: Code(s): U07.1 - COVID-19 Status: Acute (3) Acute respiratory failure due to COVID-19: Code(s): U07.1 - COVID-19; J96.00 - Acute respiratory failure, unspecified whether with hypoxia or hypercapnia Status: Acute (4) Pulmonary fibrosis determined by high resolution computed tomography: Code(s): J84.10 - Pulmonary fibrosis, unspecified Status: Acute History of Present Illness History of Present Illness Consult date: 12/26/19 Chief complaint: COVID 19 pneumonia/right pneumothorax Narrative: 79 y/o male with history of COPD, Lung CA s/p RLL rescetion many years ago developed COVID-19 around mid November( > 3 weeks ago now) and was treated with Remedesivir and Dexamethasone but I'm not sure of the total days that he was treated for. I was consulted for persistent hypoxeemic respiratory failure. He continues to require high flow oxygen with 100% and 60 liters but appears comfortable and in no respiratory distress. He gets very short of breath with minimal exertion. He denies fever, productive cough or chest pain. HRCT chest done today shows extensive pulmonary fibrosis of bilateral lungs, predominately in the upper lobes and peripheries with honey combing pattern L > R. There are still some consolidations in the the bilateral lower lobes that appear inflammatory in nature. He was restarted on Solumedrol 60 mg IV Q8h I believe yesterday. 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 but no chemotherapy or radiation History of urinary retention HLD (hyperlipidemia) HTN (hypertension) IFG (impaired fasting glucose) Pulmonary emphysema PVD (peripheral vascular disease) aortobifem stent Surgical History Surgical History History of ankle surgery History of PTCA S/P lobectomy of lung Family History Family History Sibling Cerebrovascular accident Family history of coronary artery disease Father Family history of coronary artery disease Mother Family history of coronary artery disease Social History Social History Social History: patient smoked of 2 packs a day for 50 years but quit 2013. He lives at home with his . He rarely drinks alcohol. He denies drug use. He is a full code. Nominates his to be the individual who would make medical decisions for him if he is not able Smoking status: Former smoker Tobacco type: cigarettes Second hand tobacco smoke exposure: No Smoking end date: 04/21/13 Alcohol intake: curren
[2019-12-26] MEDS: MELATONIN 5 MG TABLET PO (20:15)
[2019-12-27] VITALS (22 sets, daily range): BP systolic 129–174; BP diastolic 74–93; PULSE 58–84; RESP 10–32; TEMP 36.5–36.9; O2SAT 87–100
[2019-12-27] MEDS: methylPREDNISolone SOD SUCC 125 MG VIAL IV PUSH ×5 (00:23→23:07)
[2019-12-27] MEDS: IPRATROPIUM BR 0.02% INH SOLN 0.5 MG/2.5 ML VIAL INHALATION ×3 (02:18→21:26)
[2019-12-27] MEDS: ALBUTEROL SULFATE NEB 2.5 MG/0.5 ML INH INHALATION ×3 (02:18→21:26)
[2019-12-27] MEDS: ACETAMINOPHEN 325 MG TABLET 650 MG PO ×2 (05:07→20:37)
[2019-12-27] MEDS: CENTRAL LINE FLUSH 10 ML IV PUSH ×3 (05:10→23:07)
[2019-12-27 05:48] LABS: Hematocrit 38.4 % (42.0-52.0); Hemoglobin 12.3 g/dL (14.0-18.0); Mean Corpuscular Hemoglobin 28.6 pg (26-34); Mean Corpuscular Volume 89.3 fl (80-100); Mean Platelet Volume 10.2 fl (7.4-10.4); Platelet Count Result 201 k/mm3 (150-375); Red Cell Distribution Width 14.6 % (11.5-14.5); White Blood Count 11.2 K/mm3 (4.5-10.0)
[2019-12-27 06:08] LABS: Anion Gap 5 mmol/L (8-16); Blood Urea Nitrogen 38 mg/dL (9-20); Calcium 8.4 mg/dL (8.4-10.2); Carbon Dioxide 33 mmol/L (22-30); Chloride 99 mmol/L (98-107); Estimated CRCL calculation 89 ml/min; Estimated Glomerular Filt Rate > 60; Glucose 140 mg/dL (75-110); Potassium 3.8 mmol/L (3.4-5.0); Sodium 137 mmol/L (137-145)
[2019-12-27] MEDS: ENOXAPARIN 40 MG/0.4 ML SYRINGE SUB-Q (08:16)
[2019-12-27] MEDS: polyethylene glycoL 3350 17 GM POWD.PACK PO (08:16)
[2019-12-27] MEDS: FAMOTIDINE 10 MG TABLET PO ×2 (08:17→20:38)
[2019-12-27] MEDS: ASPIRIN 81 MG ENTERIC TABLET PO (08:17)
[2019-12-27] MEDS: TAMSULOSIN HCL 0.4 MG CAPSULE PO (08:17)
[2019-12-27] MEDS: VERAPAMIL HCL 180 MG TABLET ER PO ×2 (08:17→20:38)
[2019-12-27] MEDS: ATORVASTATIN 20 MG TABLET PO (08:17)
[2019-12-27] MEDS: ALPRAZolam 0.25 MG TABLET PO ×2 (08:26→17:15)
--- NOTE | 2019-12-27 11:18 | WPDINTPN ---
Progress Note: A&P Assessment and Plan (1) Acute respiratory failure due to COVID-19: Code(s): U07.1 - COVID-19; J96.00 - Acute respiratory failure, unspecified whether with hypoxia or hypercapnia Status: Acute Assessment and Plan: Acute respiratory failure secondary to COVID-19 with baseline COPD, right lobectomy and history of lung cancer. He might be having a component of chronic respiratory failure as well as he has significant exertional dyspnea which has been progressively getting worse. HRCT report is pending but suggest the patient has diffuse for pulmonary fibrosis which could be chronic verses now or complication of his COVID-19 pneumonia ARDS. Patient has been started on Solu-Medrol high dose by Pulmonary to see if hypoxia improves. SARS-CoV-2 PCR was positive on presentation and will repeated today Chest x-ray shows worsening left-sided infiltrates with inflammatory markers noticed to be trending up. He has been started empirically on cefepime and vancomycin ( 12/23/2019). cultures have been negative so far. Deescalate antibiotics and potentially stop vancomycin in 1-2 days if cultures remain negative. Patient is on Airborne, Droplet and Contact Isolation Wean oxygen if tolerated. Wean FiO2 1st to a reasonable limit and then start decreasing the floor. Dexamethasone completed on 01/09/2020 Completed course of Remdesivir Convalscent plasma 1 unit given on 12/08 Echo did not show any significant left ventricular systolic dysfunction. It does show diastolic dysfunction grade 1. No pulmonary hypertension on echocardiogram. Limited repeat echocardiogram done on 12/24 reviewed 12/23/2019: Venous Dopplers were negative for DVT bilaterally he has received Lasix off and on without any significant improvement in hypoxia (2) Pulmonary emphysema: Qualifiers: Emphysema type: unspecified Qualified Code(s): J43.9 - Emphysema, unspecified Code(s): J43.9 - Emphysema, unspecified Status: Acute Assessment and Plan: currently on steroids. continue bronchodilators - continue oxygen as above. Wean oxygen if tolerated. Oxygen inhalation to keep oxygen saturation target of more than 90%. (3) CAD (coronary artery disease): Code(s): I25.10 - Atherosclerotic heart disease of [place] coronary artery without angina pectoris Status: Acute Assessment and Plan: aspirin and statin (4) HLD (hyperlipidemia): Code(s): E78.5 - Hyperlipidemia, unspecified Status: Acute Assessment and Plan: continue statin (5) HTN (hypertension): Qualifiers: Hypertension type: essential hypertension Qualified Code(s): I10 - Essential (primary) hypertension Code(s): I10 - Essential (primary) hypertension Status: Acute Assessment and Plan: blood pressure controlled at this time on home verapamil dose (6) DVT prophylaxis: Code(s): Z29.9 - Encounter for prophylactic measures, unspecified Status: Acute Assessment and Plan: Lovenox 40 mg subcutaneously daily (7) Dietary counseling and surveillance: Code(s): Z71.3 - Dietary counseling and surveillance Status: Acute Assessment and Plan: patient tolerating diabetic diet and has a good appetite. - contipation: on Miralax stress ulcer prophylaxis: Famotidine Additional Plan 12/22/2019 Incident Commander discussed with patient and his in detail regarding him being hypoxic and that he may require intubation. Both patient and his requested that he be a do not intubate and do not resuscitate. Code Status - DNR/DNI Total Critical Care Time - 30 minutes Due to a high probability of clinically significant, life threatening deterioration, the patient required my highest level of preparedness to intervene emergently and I personally spent this critical care time directly and personally managing the patient. This c
--- NOTE | 2019-12-27 11:40 | PM.IMPN ---
Progress Note: A&P Assessment and Plan (1) Acute respiratory failure with hypoxia: Code(s): J96.01 - Acute respiratory failure with hypoxia Status: Acute Assessment and Plan: Patient with significant oxygen requirement related to COVID complicated by his COPD. ABG showing no evidence of CO2 retention. Patient was admitted to the ICU. Completed Remdesivir on 12/12 and dexamethasone on 12/17. He also received convalescent plasma 12/08. CXR reviewed today and showing no real change. No evidence of aspiration. LE venous doppler negative. Echo noted. CT chest reviewed and concerning for pulmonary fibrosis. Pulse dosed steroids for 5 days started. Continue Bronchodilators and abx. Wean oxygen as tolerated. Appreciate guide escort and Pulmonary input. Consider hospice if no change with aggresive therapy. Obtain old records to compare. (2) COVID-19: Code(s): U07.1 - COVID-19 Status: Acute Assessment and Plan: Patient's approximate onset of symptoms started around 12/05/19. He tested positive for COVID on December 06. Dexamethasone and Remdesivir were started 12/09/19. Convalescent plasma given 12/09/2019. Speech therapy evaluated the patient and there were no issues. Echo showing EF 65% and grade I diastolic dysfunction. Unclear on why he is not improving despite being so far out from primary exposure but now CT chest showing pulmonary fibrosis. High dose Solu-Medrol added x 5 days. Started on Nebs and broad spectrum ABX. CRP better at 5. Lasix being given intermittently. Still with considerable O2 requirement. Continue supportive care. Wean O2 as tolerated. (3) Pulmonary emphysema: Qualifiers: Emphysema type: unspecified Qualified Code(s): J43.9 - Emphysema, unspecified Code(s): J43.9 - Emphysema, unspecified Status: Acute Assessment and Plan: Patient has a long history of tobacco use and subsequent emphysema. Albuterol and Atrovent and Solu-Medrol started. Wean oxygen as tolerated. Continue supportive care. As above (4) HTN (hypertension): Qualifiers: Hypertension type: essential hypertension Qualified Code(s): I10 - Essential (primary) hypertension Code(s): I10 - Essential (primary) hypertension Status: Acute Assessment and Plan: BP is elevated at times probably related to the steroids. Continue verapamil with parameters in place. Continue to monitor (5) Pneumothorax: Qualifiers: Pneumothorax type: other pneumothorax Qualified Code(s): J93.83 - Other pneumothorax Code(s): J93.9 - Pneumothorax, unspecified Status: Deleted Assessment and Plan: Chest x-ray showing also a small right apical pneumothorax on admission. 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 Serial CXR show that the PTX has resolved. Continue to monitor. (6) DVT prophylaxis: Code(s): Z29.9 - Encounter for prophylactic measures, unspecified Status: Acute Assessment and Plan: Lovenox Subjective Date/time seen: 12/27/19 11:40 Interval history: Date of service: 12/26 79yo male here for acute respiratory failure from COVID. No complaints. Slept well. Eating okay. No CP. SOB unchanged. No change in O2 requirement. Exam Narrative: Exam Narrative: AF 98.5 129/80 80 14 92% high flow therapy with NRB mask Gen - NARD sitting up in bed Chest - faint bibasilar inspiratory crackles, mild conversational dyspnea. CV - RRR S1-S2. Tele showing no significant dysrhythmias Abd - soft, NT/ND, +BS Ext - no pedal edema. Psych - normal mood and affect. Skin - warm and dry. Objective Data Vital Signs Vital Signs: Vital Signs - 24 hr 12/26/19 12:00 12/26/19 14:00 12/26/19 14:47 Temperature 98 F Pulse Rate 77 75 83 Respiratory Rate 20 18 15 Blood Pressure 141/86 H 132/80 Pulse Oximetry 91 95 12/26/19 14:56 12/26/19 16:00 12/26/19 17:25 [place]
--- NOTE | 2019-12-27 14:27 | PM.PNPUL ---
Progress Note: A&P Assessment and Plan (1) Pulmonary fibrosis determined by high resolution computed tomography: Code(s): J84.10 - Pulmonary fibrosis, unspecified Status: Acute Assessment and Plan: developed as a consequence of COVID19 poor prognosis (2) Acute respiratory failure with hypoxia: Code(s): J96.01 - Acute respiratory failure with hypoxia Status: Acute Assessment and Plan: due to COPD and COVID19 with pulmonary fibrosis still requiring high FiO2, remains short of breath which is worse with exertion (3) COVID-19: Code(s): U07.1 - COVID-19 Status: Acute Assessment and Plan: diagnosed in Mid November, treated with Remdesivir and dexamethasone (4) Pulmonary emphysema: Qualifiers: Emphysema type: unspecified Qualified Code(s): J43.9 - Emphysema, unspecified Code(s): J43.9 - Emphysema, unspecified Status: Acute Assessment and Plan: developed bronchodilator therapy Subjective Date/time seen: 12/27/19 14:27 79 y/o male with COPD, Lung CA s/p RLL resection many years ago is seen in follow up for COVID-19 in mid November, treated with Remedesivir and Dexamethasone, has persistent hypoxemic respiratory failure. He continues to require high flow oxygen with 100% and 60 liters. He is tired at times. He is short of breath at rest. Review of Systems Review of Systems: All systems reviewed & are unremarkable except as noted in HPI and below Exam Const: General: no acute distress Other: mild dyspnea Eyes: General: appearance normal, both eyes and all related structures Neck: Neck: no JVD Resp: Auscultation: crackles (left upper posterior ) and diminished lung sounds Cardio: Rate: regular rate Rhythm: regular rhythm Heart sounds: no murmurs GI: GI Palp: Yes Soft to palpation Auscultation: normal bowel sounds Skin: General skin exam: normal color and no rashes or lesions noted Neuro: Speech: normal speech Extrem: General: normal to inspection, no edema and no pedal edema Psych: Mental Status: mental status grossly normal Affect: normal affect Objective Data Vital Signs Vital Signs: Vital Signs - 24 hr 12/26/19 14:47 12/26/19 14:56 12/26/19 16:00 Temperature Pulse Rate 83 77 64 Respiratory Rate 15 23 H 18 Blood Pressure 124/75 Pulse Oximetry 96 12/26/19 17:25 12/26/19 18:00 12/26/19 20:00 Temperature 36.5 C Pulse Rate 84 77 69 Respiratory Rate 22 H 19 Blood Pressure 154/77 H 143/98 H Pulse Oximetry 90 92 12/26/19 21:12 12/26/19 21:21 12/26/19 22:00 Temperature Pulse Rate 72 71 63 Respiratory Rate 24 H 22 H 11 L Blood Pressure 164/88 H Pulse Oximetry 94 97 12/27/19 00:00 12/27/19 02:00 12/27/19 02:18 Temperature Pulse Rate 59 L 59 L 59 L Respiratory Rate 10 L 10 L 16 Blood Pressure 145/89 H 146/88 H Pulse Oximetry 97 97 97 12/27/19 04:00 12/27/19 06:00 12/27/19 08:00 Temperature 36.9 C Pulse Rate 72 61 78 Respiratory Rate 24 H 15 Blood Pressure 136/74 174/87 H Pulse Oximetry 87 L 100 12/27/19 08:36 12/27/19 09:36 12/27/19 09:38 Temperature 36.9 C Pulse Rate 77 75 Respiratory Rate 19 24 H Blood Pressure 160/91 H Pulse Oximetry 96 94 12/27/19 10:00 12/27/19 11:14 12/27/19 12:00 Temperature 36.9 C Pulse Rate 64 80 73 Respiratory Rate 10 L 14 24 H Blood Pressure 129/80 146/77 H Pulse Oximetry 92 92 94 12/27/19 14:00 Temperature Pulse Rate 73 Respiratory Rate 28 H Blood Pressure 137/79 Pulse Oximetry 92 Intake/Output Intake/Output: Intake & Output 12/24/19 12/25/19 12/26/19 12/27/19 23:59 23:59 23:59 23:59 Intake Total 1590 2110 1800 710 Output Total 132
[2019-12-27 19:52] LABS: SARS-CoV-2 RNA PCR Negative
[2019-12-27] MEDS: MELATONIN 5 MG TABLET PO (20:39)
[2019-12-27 23:49] LABS: Vancomycin Trough 12.8 ug/mL (10.0-20.0)
[2019-12-28] VITALS (24 sets, daily range): BP systolic 128–170; BP diastolic 81–99; PULSE 57–94; RESP 10–34; TEMP 36.1–36.5; O2SAT 84–99
[2019-12-28] MEDS: ALBUTEROL SULFATE NEB 2.5 MG/0.5 ML INH INHALATION ×4 (01:54→19:49)
[2019-12-28] MEDS: IPRATROPIUM BR 0.02% INH SOLN 0.5 MG/2.5 ML VIAL INHALATION ×4 (01:54→19:49)
[2019-12-28] MEDS: ACETAMINOPHEN 325 MG TABLET 650 MG PO ×3 (02:13→18:01)
[2019-12-28] MEDS: CENTRAL LINE FLUSH 10 ML IV PUSH ×3 (06:46→22:44)
[2019-12-28] MEDS: methylPREDNISolone SOD SUCC 125 MG VIAL IV PUSH ×3 (06:47→17:52)
[2019-12-28 07:09] LABS: Hematocrit 38.7 % (42.0-52.0); Hemoglobin 12.7 g/dL (14.0-18.0); Mean Corpuscular HGB Conc 32.8 g/dl (32-36); Mean Corpuscular Hemoglobin 28.9 pg (26-34); Mean Corpuscular Volume 88.2 fl (80-100); Mean Platelet Volume 9.7 fl (7.4-10.4); Platelet Count Result 173 k/mm3 (150-375); Red Blood Count 4.39 M/mm3 (4.6-6.20); Red Cell Distribution Width 14.5 % (11.5-14.5); White Blood Count 12.6 K/mm3 (4.5-10.0)
[2019-12-28 07:19] LABS: Anion Gap 4 mmol/L (8-16); Blood Urea Nitrogen 33 mg/dL (9-20); Calcium 7.9 mg/dL (8.4-10.2); Carbon Dioxide 30 mmol/L (22-30); Chloride 102 mmol/L (98-107); Estimated CRCL calculation 89 ml/min; Estimated Glomerular Filt Rate > 60; Glucose 129 mg/dL (75-110); Potassium 3.6 mmol/L (3.4-5.0); Sodium 136 mmol/L (137-145)
[2019-12-28] MEDS: ENOXAPARIN 40 MG/0.4 ML SYRINGE SUB-Q (09:22)
[2019-12-28] MEDS: polyethylene glycoL 3350 17 GM POWD.PACK PO (09:22)
[2019-12-28] MEDS: FAMOTIDINE 10 MG TABLET PO ×2 (09:23→20:10)
[2019-12-28] MEDS: ATORVASTATIN 20 MG TABLET PO (09:23)
[2019-12-28] MEDS: TAMSULOSIN HCL 0.4 MG CAPSULE PO (09:23)
[2019-12-28] MEDS: VERAPAMIL HCL 180 MG TABLET ER PO ×2 (09:23→20:09)
[2019-12-28] MEDS: ASPIRIN 81 MG ENTERIC TABLET PO (09:23)
--- NOTE | 2019-12-28 11:21 | WPDINTPN ---
Progress Note: A&P Assessment and Plan (1) Acute respiratory failure due to COVID-19: Code(s): U07.1 - COVID-19; J96.00 - Acute respiratory failure, unspecified whether with hypoxia or hypercapnia Status: Acute Assessment and Plan: Acute respiratory failure secondary to COVID-19 with baseline COPD, right lobectomy and history of lung cancer. He might be having a component of chronic respiratory failure as well as he has significant exertional dyspnea which has been progressively getting worse. HRCT report is pending but suggest the patient has diffuse for pulmonary fibrosis which could be chronic verses now or complication of his COVID-19 pneumonia ARDS. Patient has been started on Solu-Medrol high dose by Pulmonary to see if hypoxia improves. SARS-CoV-2 PCR was positive on presentation 12/26 repeat SARS-CoV-2 PCR was negative Chest x-ray shows worsening left-sided infiltrates with inflammatory markers noticed to be trending up. He has been started empirically on cefepime and vancomycin ( 12/23/2019). cultures have been negative so far. Will continue antibiotics for 7 days and continue through 12/29. Patient is on Airborne, Droplet and Contact Isolation Wean oxygen if tolerated. Dexamethasone completed on 01/09/2020 Completed course of Remdesivir Convalscent plasma 1 unit given on 12/08 Echo did not show any significant left ventricular systolic dysfunction. It does show diastolic dysfunction grade 1. No pulmonary hypertension on echocardiogram. Limited repeat echocardiogram done on 12/24 reviewed 12/23/2019: Venous Dopplers were negative for DVT bilaterally he has received Lasix off and on without any significant improvement in hypoxia (2) Pulmonary emphysema: Qualifiers: Emphysema type: unspecified Qualified Code(s): J43.9 - Emphysema, unspecified Code(s): J43.9 - Emphysema, unspecified Status: Acute Assessment and Plan: - currently on steroids. - continue bronchodilators - continue oxygen as above. Wean oxygen if tolerated. Oxygen inhalation to keep oxygen saturation target of more than 90%. (3) CAD (coronary artery disease): Code(s): I25.10 - Atherosclerotic heart disease of [place] coronary artery without angina pectoris Status: Acute Assessment and Plan: aspirin and statin (4) HLD (hyperlipidemia): Code(s): E78.5 - Hyperlipidemia, unspecified Status: Acute Assessment and Plan: continue statin (5) HTN (hypertension): Qualifiers: Hypertension type: essential hypertension Qualified Code(s): I10 - Essential (primary) hypertension Code(s): I10 - Essential (primary) hypertension Status: Acute Assessment and Plan: blood pressure controlled at this time on home verapamil dose (6) DVT prophylaxis: Code(s): Z29.9 - Encounter for prophylactic measures, unspecified Status: Acute Assessment and Plan: Lovenox 40 mg subcutaneously daily (7) Dietary counseling and surveillance: Code(s): Z71.3 - Dietary counseling and surveillance Status: Acute Assessment and Plan: patient tolerating diabetic diet and has a good appetite. - contipation: on Miralax stress ulcer prophylaxis: Famotidine Additional Plan 12/22/2019 Topline Beading Machine Tender discussed with patient and his in detail regarding him being hypoxic and that he may require intubation. Both patient and his requested that he be a do not intubate and do not resuscitate. Code Status - DNR/DNI Total Critical Care Time - 32 minutes Due to a high probability of clinically significant, life threatening deterioration, the patient required my highest level of preparedness to intervene emergently and I personally spent this critical care time directly and personally managing the patient. This critical care time included obtaining a history; examining the patient; pulse oximetry; ordering a
[2019-12-28] MEDS: ALPRAZolam 0.25 MG TABLET PO ×2 (12:29→20:09)
--- NOTE | 2019-12-28 14:22 | PCDIET ---
Nutrition Follow-Up Complete: Nutrition Diagnosis: Suboptimal oral intake related to COVID-19 pneumonia as evidenced by intakes 50-100% with downward trend in weight. Nutrition Goal: Patient to consume 75% of meals/supplements. Goal not met. Patient consumed an average of 52% of recorded meals since last review which was decreased from intakes earlier this admission. Diet is regular with Glucerna BID. Recommend increasing Glucerna to TID to better supplement intakes. Last recorded weight is 75.9 kg which is down from last review. -I/O. Bowel Motility: Last documented BM on 12/23/19. Labs Reviewed: Hgb (12.7), Hct (38.7), Glu (129), BUN (33), Cr (0.6), Na (136), Ca (7.9) Meds Noted: Albuterol, Tums, Cefepime, Pepcid Ac, Atrovent, Solu Medrol, Miralax, Vancomycin Additional Notes: Miralax prn has been given daily for past several days. If medically appropriate, may want to consider additional medication to promote BM. No documented skin breakdown. Will continue to monitor with same goal. Nutrition Monitoring and Evaluation: Follow up every 5 days.
--- NOTE | 2019-12-28 16:37 | PM.IMPN ---
Progress Note: A&P Assessment and Plan (1) Acute respiratory failure with hypoxia: Code(s): J96.01 - Acute respiratory failure with hypoxia Status: Acute Assessment and Plan: Patient with significant oxygen requirement related to COVID complicated by his COPD. ABG showing no evidence of CO2 retention. Patient was admitted to the ICU. Completed Remdesivir on 12/12 and dexamethasone on 12/17. He also received convalescent plasma 12/08. . No evidence of aspiration. LE venous doppler negative. Continue Bronchodilators, steroids and abx.( emperic 7 days total) Wean oxygen as tolerated. (2) COVID-19: Code(s): U07.1 - COVID-19 Status: Acute Assessment and Plan: Patient's approximate onset of symptoms started around 12/05/19. He tested positive for COVID on December 06. Dexamethasone and Remdesivir were started 12/09/19. Convalescent plasma given 12/09/19. Unclear on why his symptoms are persistent but probbably related to underlying COPD (he states he was having CAPELLAN with minimal exertion prior to becoming ill). Speech therapy evaluated the patient and there were no issues. Echo showing EF 65% and grade I diastolic dysfunction. . Lasix once given on 12/23 and 12/24 with good UOP. Patient appears to be better and was noted to be to 100% pulse ox. Wean O2 as tolerated. Continue Solu-Medrol, Nebs, and broad spectrum ABXContinue. Continue supportive care. CT today pulmonary fibrosis and residual COVID (3) Pulmonary emphysema: Qualifiers: Emphysema type: unspecified Qualified Code(s): J43.9 - Emphysema, unspecified Code(s): J43.9 - Emphysema, unspecified Status: Acute Assessment and Plan: Patient has a long history of tobacco use and subsequent emphysema. No wheezing. Continue Albuterol and Atrovent. Continue Solu-Medrol. Wean oxygen as tolerated. Continue supportive care (4) HTN (hypertension): Qualifiers: Hypertension type: essential hypertension Qualified Code(s): I10 - Essential (primary) hypertension Code(s): I10 - Essential (primary) hypertension Status: Acute Assessment and Plan: BP well controlled. He lies on the BP cuff which results in false reading (145/118 with repeat BP after readjustment a few minutes later of 135/83). Continue verapamil with parameters in place. Continue to monitor (5) Pneumothorax: Qualifiers: Pneumothorax type: other pneumothorax Qualified Code(s): J93.83 - Other pneumothorax Code(s): J93.9 - Pneumothorax, unspecified Status: Deleted Assessment and Plan: Chest x-ray showing also a small right apical pneumothorax on admission. 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 Serial CXR show that the PTX has resolved. Continue to monitor. (6) DVT prophylaxis: Code(s): Z29.9 - Encounter for prophylactic measures, unspecified Status: Acute Assessment and Plan: Lovenox Subjective Date/time seen: 12/28/19 16:37 Interval history: Date of service: 12/27 79yo male here for acute respiratory failure from COVID. No complaints. Slept well. Eating okay. No CP. SOB unchanged. No change in O2 requirement. Exam Narrative: Exam Narrative: AF 98.5 156/90 76 14 97% high flow therapy Gen - NARD lying in bed Chest - faint bibasilar inspiratory crackles, Abd - soft, NT/ND, +BS Ext - no pedal edema. Psych - normal mood and affect. Skin - warm and dry. Objective Data Vital Signs Vital Signs: Vital Signs - 24 hr 12/27/19 17:45 12/27/19 18:00 12/27/19 20:00 Temperature 36.5 C Pulse Rate 70 72 63 Respiratory Rate 30 H 11 L Blood Pressure 144/75 H 158/89 H Pulse Oximetry 94 93 12/27/19 21:26 12/27/19 21:32 12/27/19 21:34 Temperature Pulse Rate 75 75 76 Respiratory Rate 28 H 24 H 32 H Blood Pressure Pulse Oximetry 91 12/27/19 22:00 12/27/19 23:00 12/28/19 00:00 Temperature
[2019-12-28] MEDS: MELATONIN 5 MG TABLET PO (20:10)
[2019-12-29] VITALS (21 sets, daily range): BP systolic 102–150; BP diastolic 67–95; PULSE 56–115; RESP 12–34; TEMP 36.3–36.6; O2SAT 92–99
[2019-12-29] MEDS: methylPREDNISolone SOD SUCC 125 MG VIAL IV PUSH ×5 (00:13→23:57)
[2019-12-29] MEDS: ACETAMINOPHEN 325 MG TABLET 650 MG PO ×4 (00:18→18:20)
[2019-12-29] MEDS: ALBUTEROL SULFATE NEB 2.5 MG/0.5 ML INH INHALATION ×4 (01:34→20:45)
[2019-12-29] MEDS: IPRATROPIUM BR 0.02% INH SOLN 0.5 MG/2.5 ML VIAL INHALATION ×4 (01:34→20:45)
[2019-12-29] MEDS: CENTRAL LINE FLUSH 10 ML IV PUSH ×3 (05:00→20:37)
[2019-12-29 05:34] LABS: Hemoglobin 12.2 g/dL (14.0-18.0); Mean Corpuscular HGB Conc 32.1 g/dl (32-36); Mean Corpuscular Hemoglobin 28.7 pg (26-34); Mean Corpuscular Volume 89.4 fl (80-100); Mean Platelet Volume 10.3 fl (7.4-10.4); Platelet Count Result 175 k/mm3 (150-375); Red Blood Count 4.25 M/mm3 (4.6-6.20); Red Cell Distribution Width 14.6 % (11.5-14.5); White Blood Count 11.4 K/mm3 (4.5-10.0)
[2019-12-29 05:44] LABS: Anion Gap 5 mmol/L (8-16); Blood Urea Nitrogen 36 mg/dL (9-20); Carbon Dioxide 33 mmol/L (22-30); Chloride 98 mmol/L (98-107); Estimated CRCL calculation 89 ml/min; Estimated Glomerular Filt Rate > 60; Glucose 130 mg/dL (75-110); Potassium 3.7 mmol/L (3.4-5.0); Sodium 136 mmol/L (137-145)
[2019-12-29] MEDS: polyethylene glycoL 3350 17 GM POWD.PACK PO (09:38)
[2019-12-29] MEDS: ASPIRIN 81 MG ENTERIC TABLET PO (09:38)
[2019-12-29] MEDS: ATORVASTATIN 20 MG TABLET PO (09:38)
[2019-12-29] MEDS: TAMSULOSIN HCL 0.4 MG CAPSULE PO (09:38)
[2019-12-29] MEDS: ENOXAPARIN 40 MG/0.4 ML SYRINGE SUB-Q (09:38)
[2019-12-29] MEDS: FAMOTIDINE 10 MG TABLET PO ×2 (09:38→20:37)
[2019-12-29] MEDS: VERAPAMIL HCL 180 MG TABLET ER PO ×2 (09:38→20:37)
--- NOTE | 2019-12-29 12:54 | WPDINTPN ---
Progress Note: A&P Assessment and Plan (1) Acute respiratory failure due to COVID-19: Code(s): U07.1 - COVID-19; J96.00 - Acute respiratory failure, unspecified whether with hypoxia or hypercapnia Status: Acute Assessment and Plan: Acute respiratory failure secondary to COVID-19 with baseline COPD, right lobectomy and history of lung cancer. He might be having a component of chronic respiratory failure as well as he has significant exertional dyspnea which has been progressively getting worse. - HRCT 12/28/2019 shows fibrotic changes which could be secondary to sick will of COVID-19, ARDS - Patient has been started on Solu-Medrol high dose by Pulmonary to see if hypoxia improves. - SARS-CoV-2 PCR was positive on presentation - 12/26 repeat SARS-CoV-2 PCR was negative - Chest x-ray shows worsening left-sided infiltrates with inflammatory markers noticed to be trending up. He has been started empirically on cefepime and vancomycin ( 12/23/2019). cultures have been negative so far. Will continue antibiotics for 7 days and continue through 12/29. Patient is on Airborne, Droplet and Contact Isolation Wean oxygen if tolerated. Dexamethasone completed on 01/09/2020 Completed course of Remdesivir Convalscent plasma 1 unit given on 12/08 Echo did not show any significant left ventricular systolic dysfunction. It does show diastolic dysfunction grade 1. No pulmonary hypertension on echocardiogram. Limited repeat echocardiogram done on 12/24 reviewed 12/23/2019: Venous Dopplers were negative for DVT bilaterally he has received Lasix off and on without any significant improvement in hypoxia (2) Pulmonary emphysema: Qualifiers: Emphysema type: unspecified Qualified Code(s): J43.9 - Emphysema, unspecified Code(s): J43.9 - Emphysema, unspecified Status: Acute Assessment and Plan: - currently on steroids. - continue bronchodilators - continue oxygen as above. Wean oxygen if tolerated. Oxygen inhalation to keep oxygen saturation target of more than 90%. (3) CAD (coronary artery disease): Code(s): I25.10 - Atherosclerotic heart disease of [place] coronary artery without angina pectoris Status: Acute Assessment and Plan: aspirin and statin (4) HLD (hyperlipidemia): Code(s): E78.5 - Hyperlipidemia, unspecified Status: Acute Assessment and Plan: continue statin (5) HTN (hypertension): Qualifiers: Hypertension type: essential hypertension Qualified Code(s): I10 - Essential (primary) hypertension Code(s): I10 - Essential (primary) hypertension Status: Acute Assessment and Plan: blood pressure controlled at this time on home verapamil dose (6) DVT prophylaxis: Code(s): Z29.9 - Encounter for prophylactic measures, unspecified Status: Acute Assessment and Plan: Lovenox 40 mg subcutaneously daily (7) Dietary counseling and surveillance: Code(s): Z71.3 - Dietary counseling and surveillance Status: Acute Assessment and Plan: patient tolerating diabetic diet and has a good appetite. - contipation: on Miralax stress ulcer prophylaxis: Famotidine Additional Plan discussed with , Melody, updated her with patient's condition and plan of care. I answered all questions regarding the fibrosis that was noted on the CT scan of the chest. I also explained to her that he is on high-dose steroids for that according the dry cleaning counter clerk. 12/22/2019 Building Maintenance Worker discussed with patient and his in detail regarding him being hypoxic and that he may require intubation. Both patient and his requested that he be a do not intubate and do not resuscitate. Code Status - DNR/DNI Total Critical Care Time - 35 minutes Due to a high probability of clinically significant, life threatening deterioration, the patient required my highest level of preparedness to in
[2019-12-29] MEDS: ALPRAZolam 0.25 MG TABLET PO ×2 (13:16→20:36)
--- NOTE | 2019-12-29 13:22 | PCDIET ---
ICU Rounding Note: Patient remains on regular diet with Glucerna TID. Average intake yesterday was 75% of meals. Continuing to take Glucerna, per RN. Last recorded weight is 75.1kg which is stable. Bowel Motility: Last documented BM on 12/23/19. Patient received Miralax today. Labs Reviewed: Hgb (12.2), Hct (38.0), Glu (130), BUN (36), Cr (0.6), Na (136), Ca (8.0) Meds Noted: Albuterol, Tums, Cefepime, Miralax, Pepcid Ac, Atrovent, Solu Medrol, Vancomycin Additional Notes: No open sores documented. Following daily in ICU rounds. Assessing/reassessing every 5 days.
--- NOTE | 2019-12-29 18:18 | PM.IMPN ---
Progress Note: A&P Assessment and Plan (1) Acute respiratory failure with hypoxia: Code(s): J96.01 - Acute respiratory failure with hypoxia Status: Acute Assessment and Plan: Patient with significant oxygen requirement related to COVID complicated by his COPD. ABG showing no evidence of CO2 retention. Patient was admitted to the ICU. Completed Remdesivir on 12/12 and dexamethasone on 12/17. He also received convalescent plasma 12/08. . No evidence of aspiration. LE venous doppler negative. Continue Bronchodilators, steroids and abx.( emperic 7 days total through 12/29) Wean oxygen as tolerated. (2) COVID-19: Code(s): U07.1 - COVID-19 Status: Acute Assessment and Plan: Patient's approximate onset of symptoms started around 12/05/19. He tested positive for COVID on December 06. Dexamethasone and Remdesivir were started 12/09/19. Convalescent plasma given 12/09/19. Unclear on why his symptoms are persistent but probbably related to underlying COPD (he states he was having CAPELLAN with minimal exertion prior to becoming ill). Speech therapy evaluated the patient and there were no issues. Echo showing EF 65% and grade I diastolic dysfunction. . Lasix once given on 12/23 and 12/24 with good UOP. Patient appears to be better and was noted to be to 100% pulse ox. Wean O2 as tolerated. Continue Solu-Medrol, Nebs, and broad spectrum ABXContinue. Continue supportive care. CT today pulmonary fibrosis and residual COVID (3) Pulmonary emphysema: Qualifiers: Emphysema type: unspecified Qualified Code(s): J43.9 - Emphysema, unspecified Code(s): J43.9 - Emphysema, unspecified Status: Acute Assessment and Plan: Patient has a long history of tobacco use and subsequent emphysema. No wheezing. Continue Albuterol and Atrovent. Continue Solu-Medrol. Wean oxygen as tolerated. Continue supportive care (4) HTN (hypertension): Qualifiers: Hypertension type: essential hypertension Qualified Code(s): I10 - Essential (primary) hypertension Code(s): I10 - Essential (primary) hypertension Status: Acute Assessment and Plan: BP well controlled. He lies on the BP cuff which results in false reading (145/118 with repeat BP after readjustment a few minutes later of 135/83). Continue verapamil with parameters in place. Continue to monitor (5) Pneumothorax: Qualifiers: Pneumothorax type: other pneumothorax Qualified Code(s): J93.83 - Other pneumothorax Code(s): J93.9 - Pneumothorax, unspecified Status: Deleted Assessment and Plan: Chest x-ray showing also a small right apical pneumothorax on admission. 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 Serial CXR show that the PTX has resolved. Continue to monitor. (6) DVT prophylaxis: Code(s): Z29.9 - Encounter for prophylactic measures, unspecified Status: Acute Assessment and Plan: Lovenox Subjective Date/time seen: 12/29/19 18:18 Interval history: Date of service: 12/28 79yo male here for acute respiratory failure from COVID. No complaints. Slept well. Eating okay. No CP. SOB unchanged. No change in O2 requirement. Exam Narrative: Exam Narrative: AF 98.5 108/72 74 16 96% high flow therapy Gen - NARD lying in bed Chest - faint bibasilar inspiratory crackles, Abd - soft, NT/ND, +BS Ext - no pedal edema. Psych - normal mood and affect. Skin - warm and dry. Objective Data Vital Signs Vital Signs: Vital Signs - 24 hr 12/28/19 19:49 12/28/19 19:51 12/28/19 19:55 Temperature Pulse Rate 71 68 73 Respiratory Rate 28 H 28 H 24 H Blood Pressure Pulse Oximetry 94 12/28/19 20:00 12/28/19 22:00 12/29/19 00:00 Temperature 36.5 C 36.6 C Pulse Rate 65 57 L 56 L Respiratory Rate 15 19 19 Blood Pressure 145/91 H 156/91 H 142/91 H Pulse Oximetry 94 99 98 12/29/19 01:35 12/29/19 01:42 09
--- NOTE | 2019-12-29 20:07 | PM.PNPUL ---
Progress Note: A&P Assessment and Plan (1) Pulmonary fibrosis determined by high resolution computed tomography: Code(s): J84.10 - Pulmonary fibrosis, unspecified Status: Acute Assessment and Plan: developed as a consequence of COVID19, remaining on high O2 flows with saturation mainly in the 90% and above range with decreases with exertion poor prognosis (2) Acute respiratory failure with hypoxia: Code(s): J96.01 - Acute respiratory failure with hypoxia Status: Acute Assessment and Plan: due to COPD and COVID19 with pulmonary fibrosis still requiring high FiO2, remains short of breath which is worse with exertion (3) COVID-19: Code(s): U07.1 - COVID-19 Status: Acute Assessment and Plan: diagnosed in Mid November, treated with Remdesivir and dexamethasone (4) Pulmonary emphysema: Qualifiers: Emphysema type: unspecified Qualified Code(s): J43.9 - Emphysema, unspecified Code(s): J43.9 - Emphysema, unspecified Status: Acute Assessment and Plan: bronchodilator therapy Subjective Date/time seen: 12/29/19 20:07 This 79 yo man is seen in follow up for acute hypoxemic respiratory failure due to COVID pneumonia, feeling about the same, still requiring high levels of O2 to adequately saturate, and drops with little movement. No sputum. No hemoptysis. Review of Systems Review of Systems: All systems reviewed & are unremarkable except as noted in HPI and below Exam Const: General: no acute distress Other: mild dyspnea Eyes: General: appearance normal, both eyes and all related structures Neck: Neck: no JVD Resp: Auscultation: crackles (left upper posterior ) on the left and diminished lung sounds Cardio: Rate: regular rate Rhythm: regular rhythm Heart sounds: no murmurs GI: Auscultation: normal bowel sounds Skin: General skin exam: normal color and no rashes or lesions noted Neuro: Speech: normal speech Extrem: General: normal to inspection, no edema and no pedal edema Psych: Mental Status: mental status grossly normal Affect: normal affect Objective Data Vital Signs Vital Signs: Vital Signs - 24 hr 12/28/19 22:00 12/29/19 00:00 12/29/19 01:35 Temperature 36.6 C Pulse Rate 57 L 56 L 56 L Respiratory Rate 19 19 18 Blood Pressure 156/91 H 142/91 H Pulse Oximetry 99 98 12/29/19 01:42 12/29/19 02:00 12/29/19 04:00 Temperature 36.6 C Pulse Rate 58 L 56 L 56 L Respiratory Rate 18 16 18 Blood Pressure 150/95 H Pulse Oximetry 99 98 12/29/19 08:00 12/29/19 10:00 12/29/19 10:27 Temperature Pulse Rate 67 68 87 Respiratory Rate 23 H 22 H 30 H Blood Pressure 148/85 H 148/82 H Pulse Oximetry 92 93 12/29/19 10:38 12/29/19 12:00 12/29/19 14:00 Temperature 36.3 C L Pulse Rate 88 97 115 H Respiratory Rate 19 28 H 34 H Blood Pressure 102/67 108/73 Pulse Oximetry 94 93 12/29/19 15:17 12/29/19 15:25 12/29/19 16:00 Temperature 36.3 C L Pulse Rate 95 89 81 Respiratory Rate 28 H 28 H 28 H Blood Pressure 127/74 Pulse Oximetry 96 97 12/29/19 18:00 Temperature Pulse Rate 68 Respiratory Rate 12 Blood Pressure Pulse Oximetry 99 Intake/Output Intake/Output: Intake & Output 12/26/19 12/27/19 12/28/19 12/29/19 23:59 23:59 23:59 23:59 Intake Total 1800 1000 1700 1380 Output Total 3075 1300 1150 750 Balance -1275 -300 550 630 Meds/Results Medications: Active Medications Generic Name Dose Route Start Last Admin Trade Name Freq PRN Reason Stop Dose Admin Acetaminophen 650 mg 12/10/19 22:38 12/29/19 18:20 Tylenol Tablet PO 650 mg Q6H PRN Administration Mild Pain (1-3) or Fever Albuterol
[2019-12-29] MEDS: MELATONIN 5 MG TABLET PO (20:37)
[2019-12-30] VITALS (19 sets, daily range): BP systolic 112–156; BP diastolic 70–100; PULSE 57–95; RESP 13–30; TEMP 35.6–36.7; O2SAT 87–99
[2019-12-30] MEDS: ALBUTEROL SULFATE NEB 2.5 MG/0.5 ML INH INHALATION ×2 (02:22→21:23)
[2019-12-30] MEDS: IPRATROPIUM BR 0.02% INH SOLN 0.5 MG/2.5 ML VIAL INHALATION ×3 (02:22→21:24)
[2019-12-30] MEDS: ACETAMINOPHEN 325 MG TABLET 650 MG PO ×3 (05:21→19:55)
[2019-12-30] MEDS: methylPREDNISolone SOD SUCC 125 MG VIAL IV PUSH (05:21)
[2019-12-30] MEDS: CENTRAL LINE FLUSH 10 ML IV PUSH ×3 (05:21→14:24)
[2019-12-30 05:58] LABS: Hematocrit 37.3 % (42.0-52.0); Hemoglobin 12.1 g/dL (14.0-18.0); Mean Corpuscular HGB Conc 32.4 g/dl (32-36); Mean Corpuscular Hemoglobin 28.7 pg (26-34); Mean Corpuscular Volume 88.6 fl (80-100); Mean Platelet Volume 9.8 fl (7.4-10.4); Platelet Count Result 175 k/mm3 (150-375); Red Blood Count 4.21 M/mm3 (4.6-6.20); Red Cell Distribution Width 14.7 % (11.5-14.5); White Blood Count 12.2 K/mm3 (4.5-10.0)
[2019-12-30 06:17] LABS: Anion Gap 5 mmol/L (8-16); Blood Urea Nitrogen 35 mg/dL (9-20); Calcium 7.9 mg/dL (8.4-10.2); Carbon Dioxide 32 mmol/L (22-30); Chloride 99 mmol/L (98-107); Estimated CRCL calculation 105 ml/min; Estimated Glomerular Filt Rate > 60; Glucose 143 mg/dL (75-110); Potassium 3.7 mmol/L (3.4-5.0); Sodium 136 mmol/L (137-145)
[2019-12-30] MEDS: TAMSULOSIN HCL 0.4 MG CAPSULE PO (08:58)
[2019-12-30] MEDS: VERAPAMIL HCL 180 MG TABLET ER PO ×2 (08:58→19:55)
[2019-12-30] MEDS: ATORVASTATIN 20 MG TABLET PO (08:58)
[2019-12-30] MEDS: FAMOTIDINE 10 MG TABLET PO ×2 (08:59→19:55)
[2019-12-30] MEDS: ENOXAPARIN 40 MG/0.4 ML SYRINGE SUB-Q (08:59)
[2019-12-30] MEDS: ASPIRIN 81 MG ENTERIC TABLET PO (08:59)
--- NOTE | 2019-12-30 14:20 | PCDIET ---
ICU Rounding Note: Patient eating 100% of meals on regular diet with Glucerna TID. Last recorded weight is 75kg which is stable with last review. Bowel Motility: BM x 1 on 12/29/19. Labs Reviewed: Hgb (12.1), Hct (37.3), Glu (143), BUN (35), Cr (0.5), Na (136), Ca (7.9) Meds Noted: Albuterol, Tums, Cefepime, Pepcid Ac, Atrovent, Miralax, Vancomycin Additional Notes: No albumin available for calcium correction. No documented skin breakdown. Following daily in ICU rounds. Assessing/reassessing every 5 days.
--- NOTE | 2019-12-30 14:23 | WPDINTPN ---
Progress Note: A&P Assessment and Plan (1) Acute respiratory failure due to COVID-19: Code(s): U07.1 - COVID-19; J96.00 - Acute respiratory failure, unspecified whether with hypoxia or hypercapnia Status: Acute Assessment and Plan: Acute respiratory failure secondary to COVID-19 with baseline COPD, right lobectomy and history of lung cancer. He might be having a component of chronic respiratory failure as well as he has significant exertional dyspnea which has been progressively getting worse. - HRCT 12/28/2019 shows fibrotic changes which could be secondary to sick will of COVID-19, ARDS - Patient has been started on Solu-Medrol high dose by Pulmonary to see if hypoxia improves. - SARS-CoV-2 PCR was positive on presentation - 12/26 repeat SARS-CoV-2 PCR was negative - Chest x-ray shows worsening left-sided infiltrates with inflammatory markers noticed to be trending up. He has been started empirically on cefepime and vancomycin ( 12/23/2019). cultures have been negative so far. Will continue antibiotics for 7 days and continue through 12/29. Patient is on Airborne, Droplet and Contact Isolation Wean oxygen if tolerated. Dexamethasone completed on 01/09/2020 Completed course of Remdesivir Convalscent plasma 1 unit given on 12/08 Echo did not show any significant left ventricular systolic dysfunction. It does show diastolic dysfunction grade 1. No pulmonary hypertension on echocardiogram. Limited repeat echocardiogram done on 12/24 reviewed 12/23/2019: Venous Dopplers were negative for DVT bilaterally he has received Lasix off and on without any significant improvement in hypoxia (2) Pulmonary emphysema: Qualifiers: Emphysema type: unspecified Qualified Code(s): J43.9 - Emphysema, unspecified Code(s): J43.9 - Emphysema, unspecified Status: Acute Assessment and Plan: - currently on steroids. - continue bronchodilators - continue oxygen as above. Wean oxygen if tolerated. Oxygen inhalation to keep oxygen saturation target of more than 90%. (3) CAD (coronary artery disease): Code(s): I25.10 - Atherosclerotic heart disease of [place] coronary artery without angina pectoris Status: Acute Assessment and Plan: aspirin and statin (4) HLD (hyperlipidemia): Code(s): E78.5 - Hyperlipidemia, unspecified Status: Acute Assessment and Plan: continue statin (5) HTN (hypertension): Qualifiers: Hypertension type: essential hypertension Qualified Code(s): I10 - Essential (primary) hypertension Code(s): I10 - Essential (primary) hypertension Status: Acute Assessment and Plan: blood pressure controlled at this time on home verapamil dose (6) DVT prophylaxis: Code(s): Z29.9 - Encounter for prophylactic measures, unspecified Status: Acute Assessment and Plan: Lovenox 40 mg subcutaneously daily (7) Dietary counseling and surveillance: Code(s): Z71.3 - Dietary counseling and surveillance Status: Acute Assessment and Plan: patient tolerating diabetic diet and has a good appetite. - contipation: on Miralax stress ulcer prophylaxis: Famotidine Additional Plan Discussed with care coordination regarding possible transfer to LTAC for weaning from high-flow oxygen therapy. It is in the works. Discussed with patient and his and updated them regarding referral to the LTAC in that it could take a few days before we can hear from them. Both the patient and the are eager and in a hurry for him to leave. 12/22/2019 Financial Analyst Accountant discussed with patient and his in detail regarding him being hypoxic and that he may require intubation. Both patient and his requested that he be a do not intubate and do not resuscitate. Code Status - DNR/DNI Total Critical Care Time - 32 minutes Due to a high probability of clinically significant, life
[2019-12-30] MEDS: ALPRAZolam 0.25 MG TABLET PO ×2 (14:42→19:55)
--- NOTE | 2019-12-30 16:27 | PM.IMPN ---
Progress Note: A&P Assessment and Plan (1) Acute respiratory failure with hypoxia: Code(s): J96.01 - Acute respiratory failure with hypoxia Status: Acute Assessment and Plan: Patient with significant oxygen requirement related to COVID complicated by his COPD. ABG showing no evidence of CO2 retention. Patient was admitted to the ICU. Completed Remdesivir on 12/12 and dexamethasone on 12/17. He also received convalescent plasma 12/08. . No evidence of aspiration. LE venous doppler negative. Continue Bronchodilators, and abx.( emperic 7 days total through 12/29) Wean oxygen as tolerated. (2) COVID-19: Code(s): U07.1 - COVID-19 Status: Acute Assessment and Plan: Patient's approximate onset of symptoms started around 12/05/19. He tested positive for COVID on December 06. Dexamethasone and Remdesivir were started 12/09/19. Convalescent plasma given 12/09/19. Unclear on why his symptoms are persistent but probbably related to underlying COPD (he states he was having CAPELLAN with minimal exertion prior to becoming ill). Speech therapy evaluated the patient and there were no issues. Echo showing EF 65% and grade I diastolic dysfunction. . Lasix once given on 12/23 and 12/24 with good UOP. . Wean O2 as tolerated. , Nebs, and broad spectrum ABXContinue through today. Continue supportive care. CT today pulmonary fibrosis and residual COVID (3) Pulmonary emphysema: Qualifiers: Emphysema type: unspecified Qualified Code(s): J43.9 - Emphysema, unspecified Code(s): J43.9 - Emphysema, unspecified Status: Acute Assessment and Plan: Patient has a long history of tobacco use and subsequent emphysema. No wheezing. Continue Albuterol and Atrovent. . Wean oxygen as tolerated. Continue supportive care (4) HTN (hypertension): Qualifiers: Hypertension type: essential hypertension Qualified Code(s): I10 - Essential (primary) hypertension Code(s): I10 - Essential (primary) hypertension Status: Acute Assessment and Plan: BP well controlled. He lies on the BP cuff which results in false reading (145/118 with repeat BP after readjustment a few minutes later of 135/83). Continue verapamil with parameters in place. Continue to monitor (5) Pneumothorax: Qualifiers: Pneumothorax type: other pneumothorax Qualified Code(s): J93.83 - Other pneumothorax Code(s): J93.9 - Pneumothorax, unspecified Status: Deleted Assessment and Plan: Chest x-ray showing also a small right apical pneumothorax on admission. 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 Serial CXR show that the PTX has resolved. Continue to monitor. (6) DVT prophylaxis: Code(s): Z29.9 - Encounter for prophylactic measures, unspecified Status: Acute Assessment and Plan: Lovenox Subjective Date/time seen: 12/30/19 16:27 Interval history: Date of service: 12/29 79yo male here for acute respiratory failure from COVID. No complaints. Slept well. Eating okay. No CP. SOB unchanged. No change in O2 requirement. high flow FIO2 90% with 60 L Exam Narrative: Exam Narrative: AF 98.5 152/909 84 16 92% high flow therapy Gen - NARD lying in bed Chest - faint bibasilar inspiratory crackles, Abd - soft, NT/ND, +BS Ext - no pedal edema. Psych - normal mood and affect. Skin - warm and dry. Objective Data Vital Signs Vital Signs: Vital Signs - 24 hr 12/29/19 18:00 12/29/19 20:00 12/29/19 20:45 Temperature 36.3 C L Pulse Rate 68 80 78 Respiratory Rate 12 24 H 32 H Blood Pressure 145/84 H Pulse Oximetry 99 96 93 12/29/19 20:47 12/29/19 20:52 12/29/19 22:00 Temperature Pulse Rate 67 69 62 Respiratory Rate 28 H 27 H 18 Blood Pressure 133/76 Pulse Oximetry 98 12/29/19 22:59 12/30/19 00:00 12/30/19 02:00 Temperature 36.4 C Pulse Rate 63 64 70 Respiratory Rate 23 H 24 H 23
[2019-12-30] MEDS: MELATONIN 5 MG TABLET PO (19:55)
[2019-12-31] VITALS (21 sets, daily range): BP systolic 122–161; BP diastolic 75–104; PULSE 58–96; RESP 11–39; TEMP 35.3–36.9; O2SAT 90–100
[2019-12-31] MEDS: ACETAMINOPHEN 325 MG TABLET 650 MG PO ×3 (01:05→19:58)
[2019-12-31] MEDS: CENTRAL LINE FLUSH 10 ML IV PUSH ×4 (01:06→20:00)
[2019-12-31] MEDS: ENOXAPARIN 40 MG/0.4 ML SYRINGE SUB-Q (08:03)
[2019-12-31] MEDS: ATORVASTATIN 20 MG TABLET PO (08:04)
[2019-12-31] MEDS: FAMOTIDINE 10 MG TABLET PO ×2 (08:04→19:58)
[2019-12-31] MEDS: TAMSULOSIN HCL 0.4 MG CAPSULE PO (08:04)
[2019-12-31] MEDS: VERAPAMIL HCL 180 MG TABLET ER PO ×2 (08:04→19:58)
[2019-12-31] MEDS: ASPIRIN 81 MG ENTERIC TABLET PO (08:04)
[2019-12-31] MEDS: ALBUTEROL SULFATE NEB 2.5 MG/0.5 ML INH INHALATION ×3 (09:11→20:47)
[2019-12-31] MEDS: IPRATROPIUM BR 0.02% INH SOLN 0.5 MG/2.5 ML VIAL INHALATION ×3 (09:11→20:47)
--- NOTE | 2019-12-31 11:23 | WPDINTPN ---
Progress Note: A&P Assessment and Plan (1) Acute respiratory failure due to COVID-19: Code(s): U07.1 - COVID-19; J96.00 - Acute respiratory failure, unspecified whether with hypoxia or hypercapnia Status: Acute Assessment and Plan: Acute respiratory failure secondary to COVID-19 with baseline COPD, right lobectomy and history of lung cancer. He might be having a component of chronic respiratory failure as well as he has significant exertional dyspnea which has been progressively getting worse. - HRCT 12/28/2019 shows fibrotic changes which could be secondary to sick will of COVID-19, ARDS - Status post high-dose Solu-Medrol x3 days per tug master. - SARS-CoV-2 PCR was positive on presentation - 12/26 repeat SARS-CoV-2 PCR was negative - Continue cefepime and vancomycin ( 12/23/2019). cultures have been negative so far. Will continue antibiotics for 10 days - Patient is on Airborne, Droplet and Contact Isolation - Wean oxygen if tolerated. Dexamethasone completed on 01/09/2020 Completed course of Remdesivir Convalscent plasma 1 unit given on 12/08 Echo did not show any significant left ventricular systolic dysfunction. It does show diastolic dysfunction grade 1. No pulmonary hypertension on echocardiogram. Limited repeat echocardiogram done on 12/24 reviewed 12/23/2019: Venous Dopplers were negative for DVT bilaterally (2) Pulmonary emphysema: Qualifiers: Emphysema type: unspecified Qualified Code(s): J43.9 - Emphysema, unspecified Code(s): J43.9 - Emphysema, unspecified Status: Acute Assessment and Plan: - status post high-dose steroids x3 days - continue bronchodilators - continue oxygen as above. Wean oxygen if tolerated. Oxygen inhalation to keep oxygen saturation target of more than 90%. (3) CAD (coronary artery disease): Code(s): I25.10 - Atherosclerotic heart disease of [place] coronary artery without angina pectoris Status: Acute Assessment and Plan: aspirin and statin (4) HLD (hyperlipidemia): Code(s): E78.5 - Hyperlipidemia, unspecified Status: Acute Assessment and Plan: continue statin (5) HTN (hypertension): Qualifiers: Hypertension type: essential hypertension Qualified Code(s): I10 - Essential (primary) hypertension Code(s): I10 - Essential (primary) hypertension Status: Acute Assessment and Plan: blood pressure controlled at this time on home verapamil dose (6) DVT prophylaxis: Code(s): Z29.9 - Encounter for prophylactic measures, unspecified Status: Acute Assessment and Plan: Lovenox 40 mg subcutaneously daily (7) Dietary counseling and surveillance: Code(s): Z71.3 - Dietary counseling and surveillance Status: Acute Assessment and Plan: patient tolerating diabetic diet and has a good appetite. - contipation: on Miralax stress ulcer prophylaxis: Famotidine Additional Plan Discussed with care coordination regarding possible transfer to LTAC for weaning from high-flow oxygen therapy. It is in the works. Discussed with patient and his and updated them regarding referral to the LTAC in that it could take a few days before we can hear from them. Both the patient and the are eager and in a hurry for him to leave the hospital 12/22/2019 Employment Educational Coord discussed with patient and his in detail regarding him being hypoxic and that he may require intubation. Both patient and his requested that he be a do not intubate and do not resuscitate. Code Status - DNR/DNI Total Critical Care Time - 34 minutes Due to a high probability of clinically significant, life threatening deterioration, the patient required my highest level of preparedness to intervene emergently and I personally spent this critical care time directly and personally managing the patient. This critical care time included obtain
--- NOTE | 2019-12-31 13:30 | PCDIET ---
Nutrition Follow-Up Complete: Nutrition Diagnosis: Suboptimal oral intake related to COVID-19 pneumonia as evidenced by intakes 50-100% with downward trend in weight. Nutrition Goal: Patient to consume 75% of meals/supplements. Goal met. Patient eating well on regular diet with Glucerna TID. Last recorded weight is 75.2 kg which is stable. Bowel Motility: Last documented BM on 12/29/19. Labs Reviewed: No new BMP available. Meds Noted: Albuterol, Cefepime, Pepcid Ac, Atrovent, Miralax (not given today), Vancomycin Additional Notes: No documented skin breakdown. Will continue to monitor with same goal. Nutrition Monitoring and Diagnosis: Follow up every 7 days.
--- NOTE | 2019-12-31 16:14 | PM.IMPN ---
Progress Note: A&P Assessment and Plan (1) Acute respiratory failure with hypoxia: Code(s): J96.01 - Acute respiratory failure with hypoxia Status: Acute Assessment and Plan: Patient with significant oxygen requirement related to COVID complicated by his COPD. ABG showing no evidence of CO2 retention. Patient was admitted to the ICU. Completed Remdesivir on 12/12 and dexamethasone on 12/17. He also received convalescent plasma 12/08. . No evidence of aspiration. LE venous doppler negative. Continue Bronchodilators, and abx.( day 8) Wean oxygen as tolerated. (2) COVID-19: Code(s): U07.1 - COVID-19 Status: Acute Assessment and Plan: Patient's approximate onset of symptoms started around 12/05/19. He tested positive for COVID on December 06. Dexamethasone and Remdesivir were started 12/09/19. Convalescent plasma given 12/09/19. Unclear on why his symptoms are persistent but probbably related to underlying COPD (he states he was having CAPELLAN with minimal exertion prior to becoming ill). Speech therapy evaluated the patient and there were no issues. Echo showing EF 65% and grade I diastolic dysfunction. . Lasix once given on 12/23 and 12/24 with good UOP. . Wean O2 as tolerated. , Nebs, and broad spectrum ABX Continue per intensivits. Continue supportive care. CT pulmonary fibrosis and residual COVID (3) Pulmonary emphysema: Qualifiers: Emphysema type: unspecified Qualified Code(s): J43.9 - Emphysema, unspecified Code(s): J43.9 - Emphysema, unspecified Status: Acute Assessment and Plan: Patient has a long history of tobacco use and subsequent emphysema. No wheezing. Continue Albuterol and Atrovent. . Wean oxygen as tolerated. Continue supportive care (4) HTN (hypertension): Qualifiers: Hypertension type: essential hypertension Qualified Code(s): I10 - Essential (primary) hypertension Code(s): I10 - Essential (primary) hypertension Status: Acute Assessment and Plan: BP well controlled. He lies on the BP cuff which results in false reading (145/118 with repeat BP after readjustment a few minutes later of 135/83). Continue verapamil with parameters in place. Continue to monitor (5) Pneumothorax: Qualifiers: Pneumothorax type: other pneumothorax Qualified Code(s): J93.83 - Other pneumothorax Code(s): J93.9 - Pneumothorax, unspecified Status: Deleted Assessment and Plan: Chest x-ray showing also a small right apical pneumothorax on admission. 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 Serial CXR show that the PTX has resolved. Continue to monitor. (6) DVT prophylaxis: Code(s): Z29.9 - Encounter for prophylactic measures, unspecified Status: Acute Assessment and Plan: Lovenox Subjective Date/time seen: 12/31/19 16:14 Interval history: Date of service: 12/30 79yo male here [facility] [employer]. No complaints. Slept well. Eating okay. No CP. SOB unchanged. No change in O2 requirement. high flow FIO2 93% with 60 L Exam Narrative: Exam Narrative: AF 98.5 122/86 84 16 96% high flow therapy Gen - NARD sitting in bed eating Chest - faint bibasilar inspiratory crackles, Abd - soft, NT/ND, +BS Ext - no pedal edema. Psych - normal mood and affect. Skin - warm and dry. Objective Data Vital Signs Vital Signs: Vital Signs - 24 hr 12/30/19 18:00 12/30/19 20:00 12/30/19 21:24 Temperature 36.7 C Pulse Rate 92 82 66 Respiratory Rate 29 H 21 H 24 H Blood Pressure 134/81 145/76 H Pulse Oximetry 87 L 90 12/30/19 21:25 12/30/19 22:00 12/31/19 00:00 Temperature 36.9 C Pulse Rate 63 62 71 Respiratory Rate 24 H 17 26 H Blood Pressure 149/93 H 125/75 Pulse Oximetry 97 99 93 12/31/19 02:00 12/31/19 03:07 12/31/19 04:00 Temperature 36.9 C Pulse Rate 61 62 61 Respiratory Rate 11 L 12 16
[2019-12-31] MEDS: ALPRAZolam 0.25 MG TABLET PO ×2 (17:03→19:59)
[2019-12-31] MEDS: MELATONIN 5 MG TABLET PO (19:58)
[2019-12-31 22:52] LABS: Vancomycin Trough 12.1 ug/mL (10.0-20.0)
[2020-01-01] VITALS (21 sets, daily range): BP systolic 87–161; BP diastolic 64–105; PULSE 66–111; RESP 12–29; TEMP 36.1–36.4; O2SAT 84–98
[2020-01-01] MEDS: ALBUTEROL SULFATE NEB 2.5 MG/0.5 ML INH INHALATION ×4 (01:57→21:50)
[2020-01-01] MEDS: IPRATROPIUM BR 0.02% INH SOLN 0.5 MG/2.5 ML VIAL INHALATION ×4 (01:57→21:51)
[2020-01-01] MEDS: CENTRAL LINE FLUSH 10 ML IV PUSH ×3 (04:34→20:03)
[2020-01-01 06:10] LABS: Basophils Percent Auto 0.1 % (0.2-1.2); Eosinophils Absolute Auto 0.8 K/mm3 (0-0.3); Eosinophils Percent Auto 8.4 % (0-4.4); Hematocrit 39.3 % (42.0-52.0); Hemoglobin 12.6 g/dL (14.0-18.0); Immature Granulocyte Absolute 0.76 K/mm3 (0.00-0.031); Immature Granulocyte Percent A 7.7 % (0-0.5); Lymphocytes Absolute Auto 0.71 K/mm3 (0.9-3.2); Lymphocytes Percent Auto 7.2 % (18.3-44.2); Mean Corpuscular HGB Conc 32.1 g/dl (32-36); Mean Corpuscular Hemoglobin 28.2 pg (26-34); Mean Corpuscular Volume 87.9 fl (80-100); Mean Platelet Volume 9.6 fl (7.4-10.4); Monocytes Absolute Auto 0.2 K/mm3 (0.1-0.6); Neutrophils Absolute Auto 7.4 K/mm3 (1.3-6.7); Neutrophils Percent Auto 74.6 % (45.5-73.1); Platelet Count Result 183 k/mm3 (150-375); Red Blood Count 4.47 M/mm3 (4.6-6.20); Red Cell Distribution Width 14.9 % (11.5-14.5); White Blood Count 9.9 K/mm3 (4.5-10.0)
[2020-01-01] MEDS: ACETAMINOPHEN 325 MG TABLET 650 MG PO ×3 (06:48→20:02)
[2020-01-01 06:59] LABS: Anion Gap 3 mmol/L (8-16); Blood Urea Nitrogen 22 mg/dL (9-20); CRP 5.1 mg/dL (<1.0); Carbon Dioxide 33 mmol/L (22-30); Chloride 100 mmol/L (98-107); Estimated CRCL calculation 105 ml/min; Estimated Glomerular Filt Rate > 60; Glucose 71 mg/dL (75-110); Magnesium 2.3 mg/dL (1.6-2.3); Potassium 3.8 mmol/L (3.4-5.0); Sodium 136 mmol/L (137-145)
[2020-01-01] MEDS: ENOXAPARIN 40 MG/0.4 ML SYRINGE SUB-Q (08:29)
[2020-01-01] MEDS: FAMOTIDINE 10 MG TABLET PO ×2 (08:30→20:02)
[2020-01-01] MEDS: ATORVASTATIN 20 MG TABLET PO (08:30)
[2020-01-01] MEDS: ASPIRIN 81 MG ENTERIC TABLET PO (08:30)
[2020-01-01] MEDS: polyethylene glycoL 3350 17 GM POWD.PACK PO (08:30)
[2020-01-01] MEDS: TAMSULOSIN HCL 0.4 MG CAPSULE PO (08:30)
[2020-01-01] MEDS: VERAPAMIL HCL 180 MG TABLET ER PO ×2 (08:31→20:02)
--- NOTE | 2020-01-01 08:59 | WPDINTPN ---
Progress Note: A&P Assessment and Plan (1) Acute respiratory failure due to COVID-19: Code(s): U07.1 - COVID-19; J96.00 - Acute respiratory failure, unspecified whether with hypoxia or hypercapnia Status: Acute Assessment and Plan: Acute respiratory failure secondary to COVID-19 with baseline COPD, right lobectomy and history of lung cancer. He might be having a component of chronic respiratory failure as well as he has significant exertional dyspnea which has been progressively getting worse. - HRCT 12/28/2019 shows fibrotic changes which could be secondary to sick will of COVID-19, ARDS - Status post high-dose Solu-Medrol x3 days per [employer] security consultant. - SARS-CoV-2 PCR was positive on presentation - 12/26 repeat SARS-CoV-2 PCR was negative - Continue cefepime and vancomycin ( 12/23/2019). cultures have been negative so far. Will continue antibiotics for 10 days - Patient is on Airborne, Droplet and Contact Isolation - Wean oxygen if tolerated. Dexamethasone completed on 01/09/2020 Completed course of Remdesivir Convalscent plasma 1 unit given on 12/08 Echo did not show any significant left ventricular systolic dysfunction. It does show diastolic dysfunction grade 1. No pulmonary hypertension on echocardiogram. Limited repeat echocardiogram done on 12/24 reviewed 12/23/2019: Venous Dopplers were negative for DVT bilaterally (2) Pulmonary emphysema: Qualifiers: Emphysema type: unspecified Qualified Code(s): J43.9 - Emphysema, unspecified Code(s): J43.9 - Emphysema, unspecified Status: Acute Assessment and Plan: - status post high-dose steroids x3 days - continue bronchodilators - continue oxygen as above. Wean oxygen if tolerated. Oxygen inhalation to keep oxygen saturation target of more than 90%. (3) CAD (coronary artery disease): Code(s): I25.10 - Atherosclerotic heart disease of [place] coronary artery without angina pectoris Status: Acute Assessment and Plan: aspirin and statin (4) HLD (hyperlipidemia): Code(s): E78.5 - Hyperlipidemia, unspecified Status: Acute Assessment and Plan: continue statin (5) HTN (hypertension): Qualifiers: Hypertension type: essential hypertension Qualified Code(s): I10 - Essential (primary) hypertension Code(s): I10 - Essential (primary) hypertension Status: Acute Assessment and Plan: blood pressure controlled at this time on home verapamil dose (6) DVT prophylaxis: Code(s): Z29.9 - Encounter for prophylactic measures, unspecified Status: Acute Assessment and Plan: Lovenox 40 mg subcutaneously daily (7) Dietary counseling and surveillance: Code(s): Z71.3 - Dietary counseling and surveillance Status: Acute Assessment and Plan: patient tolerating diabetic diet and has a good appetite. - contipation: on Miralax stress ulcer prophylaxis: Famotidine Additional Plan discussed with patient and his and updated them with patient's condition and plan of care. I also discussed with them that the LTAC transfer is in the works but nothing will happen to the start of the next week. Will also look into trying to transfer to [facility] or its sister facilities 12/22/2019 Package Dyeing Machine Operator discussed with patient and his in detail regarding him being hypoxic and that he may require intubation. Both patient and his requested that he be a do not intubate and do not resuscitate. Code Status - DNR/DNI Total Critical Care Time - 33 minutes Due to a high probability of clinically significant, life threatening deterioration, the patient required my highest level of preparedness to intervene emergently and I personally spent this critical care time directly and personally managing the patient. This critical care time included obtaining a history; examining the patient; pulse oximetry; ordering and review of s
[2020-01-01] MEDS: ALPRAZolam 0.25 MG TABLET PO ×2 (12:58→20:02)
--- NOTE | 2020-01-01 15:37 | PM.IMPN ---
Progress Note: A&P Assessment and Plan (1) Acute respiratory failure with hypoxia: Code(s): J96.01 - Acute respiratory failure with hypoxia Status: Acute Assessment and Plan: Patient with significant oxygen requirement related to COVID complicated by his COPD. ABG showing no evidence of CO2 retention. Patient was admitted to the ICU. Completed Remdesivir on 12/12 and dexamethasone on 12/17. He also received convalescent plasma 12/08. . No evidence of aspiration. LE venous doppler negative. Continue Bronchodilators, and abx.( completed 8 days) Wean oxygen as tolerated. Awaiting word for transfer to LTAC (2) COVID-19: Code(s): U07.1 - COVID-19 Status: Acute Assessment and Plan: Patient's approximate onset of symptoms started around 12/05/19. He tested positive for COVID on December 06. Dexamethasone and Remdesivir were started 12/09/19. Convalescent plasma given 12/09/19. Unclear on why his symptoms are persistent but probbably related to underlying COPD (he states he was having CAPELLAN with minimal exertion prior to becoming ill). Speech therapy evaluated the patient and there were no issues. Echo showing EF 65% and grade I diastolic dysfunction. . Lasix once given on 12/23 and 12/24 with good UOP. . Wean O2 as tolerated. , Nebs, and finsihed broad spectrum ABX 06/29 per intensivits. Continue supportive care. CT pulmonary fibrosis and residual COVID (3) Pulmonary emphysema: Qualifiers: Emphysema type: unspecified Qualified Code(s): J43.9 - Emphysema, unspecified Code(s): J43.9 - Emphysema, unspecified Status: Acute Assessment and Plan: Patient has a long history of tobacco use and subsequent emphysema. No wheezing. Continue Albuterol and Atrovent. . Wean oxygen as tolerated. Continue supportive care (4) HTN (hypertension): Qualifiers: Hypertension type: essential hypertension Qualified Code(s): I10 - Essential (primary) hypertension Code(s): I10 - Essential (primary) hypertension Status: Acute Assessment and Plan: BP well controlled. Continue verapamil with parameters in place. Continue to monitor (5) Pneumothorax: Qualifiers: Pneumothorax type: other pneumothorax Qualified Code(s): J93.83 - Other pneumothorax Code(s): J93.9 - Pneumothorax, unspecified Status: Deleted Assessment and Plan: Chest x-ray showing also a small right apical pneumothorax on admission. 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 Serial CXR show that the PTX has resolved. Continue to monitor. (6) DVT prophylaxis: Code(s): Z29.9 - Encounter for prophylactic measures, unspecified Status: Acute Assessment and Plan: Lovenox Subjective Date/time seen: 01/01/20 15:37 Interval history: Date of service: 12/31 79yo male here for acute respiratory failure from COVID. Feels more SOB Intermitant nonrebreather Exam Narrative: Exam Narrative: AF 98.5 110/74 98 16 99% high flow therapy Gen - NARD sitting in bed eating Chest - faint bibasilar inspiratory crackles, Abd - soft, NT/ND, +BS Ext - no pedal edema. Psych - normal mood and affect. Skin - warm and dry. Objective Data Vital Signs Vital Signs: Vital Signs - 24 hr 12/31/19 16:00 12/31/19 18:00 12/31/19 20:00 Temperature 36.1 C L 36.1 C L Pulse Rate 86 80 88 Respiratory Rate 36 H 20 12 Blood Pressure 135/88 161/84 H 152/102 H Pulse Oximetry 93 94 97 12/31/19 20:49 12/31/19 21:00 12/31/19 21:44 Temperature Pulse Rate 77 78 79 Respiratory Rate 24 H 24 H 21 H Blood Pressure 152/102 H Pulse Oximetry 96 96 12/31/19 23:55 01/01/20 00:00 01/01/20 01:57 Temperature 36.1 C L Pulse Rate 81 83 74 Respiratory Rate 24 H 15 Blood Pressure 141/87 H 141/87 H Pulse Oximetry 97 97 01/01/20 02:06 01/01/20 04:00 01/01/20 05:25 Temperature 36.1 C L Pulse Rate 76 69
[2020-01-01] MEDS: MELATONIN 5 MG TABLET PO (20:02)
--- NOTE | 2020-01-01 20:52 | PM.PNPUL ---
Progress Note: A&P Assessment and Plan (1) Pulmonary fibrosis determined by high resolution computed tomography: Code(s): J84.10 - Pulmonary fibrosis, unspecified Status: Acute Assessment and Plan: developed as a consequence of COVID19, remaining on high O2 flows with saturation mainly in the 90% and above range with decreases with exertion, not able to wean as he desaturated with any movement or efforts to decrease the O2. Sometimes, we just have to bit the bullet and decreased O2, however he is not tolerating this. poor prognosis (2) Acute respiratory failure with hypoxia: Code(s): J96.01 - Acute respiratory failure with hypoxia Status: Acute Assessment and Plan: due to COPD and COVID19 with pulmonary fibrosis still requiring high FiO2, remains short of breath which is worse with exertion (3) COVID-19: Code(s): U07.1 - COVID-19 Status: Acute Assessment and Plan: diagnosed in Mid November, treated with Remdesivir and dexamethasone (4) Pulmonary emphysema: Qualifiers: Emphysema type: unspecified Qualified Code(s): J43.9 - Emphysema, unspecified Code(s): J43.9 - Emphysema, unspecified Status: Acute Assessment and Plan: bronchodilator therapy Subjective Date/time seen: 01/01/20 20:52 This 79 yo man is seen in ICU # 4 for COVID19 with persistent hypoxemia, with post COVID pulmonary fibrosis. He remains on high oxygen flows and desaturates any time the oxygen level is turned down. This has prevented effective weaning of oxygen. Review of Systems Review of Systems: All systems reviewed & are unremarkable except as noted in HPI and below Exam Const: General: no acute distress Other: mild dyspnea Eyes: General: appearance normal, both eyes and all related structures Neck: Neck: no JVD Resp: Auscultation: crackles (left upper posterior ) on the left and diminished lung sounds Cardio: Rate: regular rate Rhythm: regular rhythm Heart sounds: no murmurs GI: Auscultation: normal bowel sounds Skin: General skin exam: normal color and no rashes or lesions noted Neuro: Speech: normal speech Extrem: General: normal to inspection, no edema and no pedal edema Psych: Mental Status: mental status grossly normal Affect: normal affect Objective Data Vital Signs Vital Signs: Vital Signs - 24 hr 12/31/19 21:00 12/31/19 21:44 12/31/19 23:55 Temperature Pulse Rate 78 79 81 Respiratory Rate 24 H 21 H Blood Pressure 152/102 H Pulse Oximetry 96 01/01/20 00:00 01/01/20 01:57 01/01/20 02:06 Temperature 36.1 C L Pulse Rate 83 74 76 Respiratory Rate 24 H 15 16 Blood Pressure 141/87 H 141/87 H Pulse Oximetry 97 97 01/01/20 04:00 01/01/20 05:25 01/01/20 08:00 Temperature 36.1 C L 36.4 C L Pulse Rate 69 76 76 Respiratory Rate 12 20 26 H Blood Pressure 114/84 114/84 161/93 H Pulse Oximetry 97 96 89 L 01/01/20 08:13 01/01/20 08:17 01/01/20 09:01 Temperature Pulse Rate 73 75 101 H Respiratory Rate 23 H 24 H 29 H Blood Pressure Pulse Oximetry 95 01/01/20 09:44 01/01/20 10:00 01/01/20 12:00 Temperature 36.3 C L Pulse Rate 102 H 93 102 H Respiratory Rate 26 H 20 Blood Pressure 116/70 138/105 H Pulse Oximetry 98 84 L 01/01/20 13:51 01/01/20 14:00 01/01/20 14:10 Temperature Pulse Rate 96 95 94 Respiratory Rate 23 H 22 H 22 H Blood Pressure 87/64 L Pulse Oximetry 98 01/01/20 16:00 Temperature 36.1 C L Pulse Rate 111 H Respiratory Rate 24 H Blood Pressure 111/92 H Pulse Oximetry 92 Intake/Output Intake/Output: Intake & Output 12/29/19 12/30/19 12/31/19 01/01/20 23:59 23:59 23:59 23:59 Intake Total
[2020-01-02] VITALS (22 sets, daily range): BP systolic 106–149; BP diastolic 67–95; PULSE 63–105; RESP 13–35; TEMP 36.1–37; O2SAT 89–100
[2020-01-02] MEDS: ACETAMINOPHEN 325 MG TABLET 650 MG PO ×4 (02:16→19:32)
[2020-01-02] MEDS: IPRATROPIUM BR 0.02% INH SOLN 0.5 MG/2.5 ML VIAL INHALATION ×4 (02:46→20:11)
[2020-01-02] MEDS: ALBUTEROL SULFATE NEB 2.5 MG/0.5 ML INH INHALATION ×4 (02:46→20:11)
[2020-01-02] MEDS: CENTRAL LINE FLUSH 10 ML IV PUSH ×3 (05:07→19:33)
[2020-01-02] MEDS: TAMSULOSIN HCL 0.4 MG CAPSULE PO (08:13)
[2020-01-02] MEDS: ENOXAPARIN 40 MG/0.4 ML SYRINGE SUB-Q (08:13)
[2020-01-02] MEDS: ASPIRIN 81 MG ENTERIC TABLET PO (08:13)
[2020-01-02] MEDS: FAMOTIDINE 10 MG TABLET PO ×2 (08:14→19:32)
[2020-01-02] MEDS: polyethylene glycoL 3350 17 GM POWD.PACK PO (08:14)
[2020-01-02] MEDS: ATORVASTATIN 20 MG TABLET PO (08:14)
[2020-01-02] MEDS: VERAPAMIL HCL 180 MG TABLET ER PO ×2 (08:14→19:32)
--- NOTE | 2020-01-02 08:58 | WPDINTPN ---
Progress Note: A&P Assessment and Plan (1) Acute respiratory failure due to COVID-19: Code(s): U07.1 - COVID-19; J96.00 - Acute respiratory failure, unspecified whether with hypoxia or hypercapnia Status: Acute Assessment and Plan: Acute respiratory failure secondary to COVID-19 with baseline COPD, right lobectomy and history of lung cancer. He might be having a component of chronic respiratory failure as well as he has significant exertional dyspnea which has been progressively getting worse. - HRCT 12/28/2019 shows fibrotic changes which could be secondary to sick will of COVID-19, ARDS - Status post high-dose Solu-Medrol x3 days per sail finisher hand. - SARS-CoV-2 PCR was positive on presentation - 12/26 repeat SARS-CoV-2 PCR was negative - completed vancomycin and cefepime for a total of 10 days ( stopped on 01/01/2020) - Patient is on Airborne, Droplet and Contact Isolation - Wean oxygen if tolerated. Dexamethasone completed on 01/09/2020 Completed course of Remdesivir Convalscent plasma 1 unit given on 12/08 Echo did not show any significant left ventricular systolic dysfunction. It does show diastolic dysfunction grade 1. No pulmonary hypertension on echocardiogram. Limited repeat echocardiogram done on 12/24 reviewed 12/23/2019: Venous Dopplers were negative for DVT bilaterally (2) Pulmonary emphysema: Qualifiers: Emphysema type: unspecified Qualified Code(s): J43.9 - Emphysema, unspecified Code(s): J43.9 - Emphysema, unspecified Status: Acute Assessment and Plan: - status post high-dose steroids x3 days - continue bronchodilators - continue oxygen as above. Wean oxygen if tolerated. Oxygen inhalation to keep oxygen saturation target of more than 90%. (3) CAD (coronary artery disease): Code(s): I25.10 - Atherosclerotic heart disease of [place] coronary artery without angina pectoris Status: Acute Assessment and Plan: aspirin and statin (4) HLD (hyperlipidemia): Code(s): E78.5 - Hyperlipidemia, unspecified Status: Acute Assessment and Plan: continue statin (5) HTN (hypertension): Qualifiers: Hypertension type: essential hypertension Qualified Code(s): I10 - Essential (primary) hypertension Code(s): I10 - Essential (primary) hypertension Status: Acute Assessment and Plan: blood pressure controlled at this time on home verapamil dose (6) DVT prophylaxis: Code(s): Z29.9 - Encounter for prophylactic measures, unspecified Status: Acute Assessment and Plan: Lovenox 40 mg subcutaneously daily (7) Dietary counseling and surveillance: Code(s): Z71.3 - Dietary counseling and surveillance Status: Acute Assessment and Plan: patient tolerating diabetic diet and has a good appetite. - contipation: on Miralax stress ulcer prophylaxis: Famotidine Additional Plan discussed with patient and his and updated them with patient's condition and plan of care. I also discussed with them that the LTAC transfer is in the works but nothing will happen to the start of the next week. patient also wants to be transferred to [place], will call [facility] and see if they can accept him. 12/22/2019 Otolaryngologist discussed with patient and his in detail regarding him being hypoxic and that he may require intubation. Both patient and his requested that he be a do not intubate and do not resuscitate. Code Status - DNR/DNI Total Critical Care Time - 33 minutes Due to a high probability of clinically significant, life threatening deterioration, the patient required my highest level of preparedness to intervene emergently and I personally spent this critical care time directly and personally managing the patient. This critical care time included obtaining a history; examining the patient; pulse oximetry; ordering and review of studies; arranging ur
[2020-01-02] MEDS: ALPRAZolam 0.25 MG TABLET PO ×2 (13:50→19:32)
--- NOTE | 2020-01-02 16:05 | PM.IMPN ---
Progress Note: A&P Assessment and Plan (1) Acute respiratory failure with hypoxia: Code(s): J96.01 - Acute respiratory failure with hypoxia Status: Acute Assessment and Plan: Patient with significant oxygen requirement related to COVID complicated by his COPD. ABG showing no evidence of CO2 retention. Patient was admitted to the ICU. Completed Remdesivir on 12/12 and dexamethasone on 12/17. He also received convalescent plasma 12/08. . No evidence of aspiration. LE venous doppler negative. Continue Bronchodilators, and abx.( completed 8 days) Wean oxygen as tolerated. Awaiting word for transfer to LTAC (2) COVID-19: Code(s): U07.1 - COVID-19 Status: Acute Assessment and Plan: Patient's approximate onset of symptoms started around 12/05/19. He tested positive for COVID on December 06. Dexamethasone and Remdesivir were started 12/09/19. Convalescent plasma given 12/09/19. Unclear on why his symptoms are persistent but probbably related to underlying COPD (he states he was having CAPELLAN with minimal exertion prior to becoming ill). Speech therapy evaluated the patient and there were no issues. Echo showing EF 65% and grade I diastolic dysfunction. . Lasix once given on 12/23 and 12/24 with good UOP. . Wean O2 as tolerated. , Nebs, and finsihed broad spectrum ABX 06/29(10 days) per intensivits. Continue supportive care. CT pulmonary fibrosis and residual COVID (3) Pulmonary emphysema: Qualifiers: Emphysema type: unspecified Qualified Code(s): J43.9 - Emphysema, unspecified Code(s): J43.9 - Emphysema, unspecified Status: Acute Assessment and Plan: Patient has a long history of tobacco use and subsequent emphysema. No wheezing. Continue Albuterol and Atrovent. . Wean oxygen as tolerated. Continue supportive care (4) HTN (hypertension): Qualifiers: Hypertension type: essential hypertension Qualified Code(s): I10 - Essential (primary) hypertension Code(s): I10 - Essential (primary) hypertension Status: Acute Assessment and Plan: BP well controlled. Continue verapamil with parameters in place. Continue to monitor (5) Pneumothorax: Qualifiers: Pneumothorax type: other pneumothorax Qualified Code(s): J93.83 - Other pneumothorax Code(s): J93.9 - Pneumothorax, unspecified Status: Deleted Assessment and Plan: Chest x-ray showing also a small right apical pneumothorax on admission. 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 Serial CXR show that the PTX has resolved. Continue to monitor. (6) DVT prophylaxis: Code(s): Z29.9 - Encounter for prophylactic measures, unspecified Status: Acute Assessment and Plan: Lovenox Subjective Date/time seen: 01/02/20 16:05 Interval history: Date of service: 01/01 79yo male here for acute respiratory failure from COVID. Feels more SOB Intermitant nonrebreather Sats good when lies on left side Exam Narrative: Exam Narrative: AF 98.5 146/86 92 16 97% high flow therapy Gen - NARD sitting in bed eating Chest - faint bibasilar inspiratory crackles, Abd - soft, NT/ND, +BS Ext - no pedal edema. Psych - normal mood and affect. Skin - warm and dry. Objective Data Vital Signs Vital Signs: Vital Signs - 24 hr 01/01/20 20:00 01/01/20 21:23 01/01/20 21:48 Temperature 36.1 C L Pulse Rate 96 80 92 Respiratory Rate 24 H 24 H 28 H Blood Pressure 123/89 123/89 Pulse Oximetry 90 89 L 01/01/20 21:53 01/01/20 21:58 01/02/20 00:00 Temperature Pulse Rate 95 79 Respiratory Rate 24 H 24 H Blood Pressure 117/77 Pulse Oximetry 91 100 01/02/20 01:39 01/02/20 02:49 01/02/20 04:00 Temperature 37.0 C Pulse Rate 74 74 74 Respiratory Rate 14 14 13 Blood Pressure 117/77 106/69 Pulse Oximetry 100 100 01/02/20 05:24 01/02/20 08:00 01/02/20 08:01 Temperature 36.1 C L
[2020-01-02] MEDS: MELATONIN 5 MG TABLET PO (19:32)
--- NOTE | 2020-01-02 19:45 | PC.NURSE ---
NRB off, patient O2 sat 94% plus on 60L/93% HF therapy.
--- NOTE | 2020-01-02 21:45 | PC.NURSE ---
NRB placed back on patient on top of HF therapy for a sustain o2 sat of 79-84%.
[2020-01-03] VITALS (27 sets, daily range): BP systolic 97–152; BP diastolic 59–88; PULSE 27–110; RESP 11–32; TEMP 35.8–36.7; O2SAT 85–100
[2020-01-03] MEDS: IPRATROPIUM BR 0.02% INH SOLN 0.5 MG/2.5 ML VIAL INHALATION ×4 (01:57→22:08)
[2020-01-03] MEDS: ALBUTEROL SULFATE NEB 2.5 MG/0.5 ML INH INHALATION ×4 (01:57→22:08)
[2020-01-03 04:54] LABS: Basophils Absolute Auto 0.1 K/mm3 (0.0-0.1); Basophils Percent Auto 0.6 % (0.2-1.2); Eosinophils Absolute Auto 0.4 K/mm3 (0-0.3); Eosinophils Percent Auto 4.6 % (0-4.4); Hematocrit 39.9 % (42.0-52.0); Hemoglobin 12.6 g/dL (14.0-18.0); Immature Granulocyte Absolute 0.93 K/mm3 (0.00-0.031); Immature Granulocyte Percent A 9.6 % (0-0.5); Lymphocytes Absolute Auto 0.83 K/mm3 (0.9-3.2); Lymphocytes Percent Auto 8.6 % (18.3-44.2); Mean Corpuscular HGB Conc 31.6 g/dl (32-36); Mean Corpuscular Hemoglobin 28.6 pg (26-34); Mean Corpuscular Volume 90.7 fl (80-100); Mean Platelet Volume 9.7 fl (7.4-10.4); Monocytes Absolute Auto 0.3 K/mm3 (0.1-0.6); Monocytes Percent Auto 3.4 % (2.6-8.5); Neutrophils Absolute Auto 7.1 K/mm3 (1.3-6.7); Neutrophils Percent Auto 73.2 % (45.5-73.1); Platelet Count Result 224 k/mm3 (150-375); Red Cell Distribution Width 15.3 % (11.5-14.5); White Blood Count 9.7 K/mm3 (4.5-10.0)
[2020-01-03] MEDS: CENTRAL LINE FLUSH 10 ML IV PUSH ×3 (05:03→21:30)
[2020-01-03 05:07] LABS: Anion Gap 1 mmol/L (8-16); Blood Urea Nitrogen 24 mg/dL (9-20); Calcium 8.3 mg/dL (8.4-10.2); Carbon Dioxide 35 mmol/L (22-30); Chloride 105 mmol/L (98-107); Estimated CRCL calculation 105 ml/min; Estimated Glomerular Filt Rate > 60; Glucose 99 mg/dL (75-110); Potassium 3.7 mmol/L (3.4-5.0); Sodium 141 mmol/L (137-145)
--- NOTE | 2020-01-03 08:26 | WPDINTPN ---
Progress Note: A&P Assessment and Plan (1) Acute respiratory failure due to COVID-19: Code(s): U07.1 - COVID-19; J96.00 - Acute respiratory failure, unspecified whether with hypoxia or hypercapnia Status: Acute Assessment and Plan: Acute respiratory failure secondary to COVID-19 with baseline COPD, right lobectomy and history of lung cancer. He might be having a component of chronic respiratory failure as well as he has significant exertional dyspnea which has been progressively getting worse. - HRCT 12/28/2019 shows fibrotic changes which could be secondary to sick will of COVID-19, ARDS - Status post high-dose Solu-Medrol x3 days per cardiology tech. - SARS-CoV-2 PCR was positive on presentation - 12/26 repeat SARS-CoV-2 PCR was negative - completed vancomycin and cefepime for a total of 10 days ( stopped on 01/01/2020) - Patient is on Airborne, Droplet and Contact Isolation - Wean oxygen if tolerated. Dexamethasone completed on 01/09/2020 Completed course of Remdesivir Convalscent plasma 1 unit given on 12/08 Echo did not show any significant left ventricular systolic dysfunction. It does show diastolic dysfunction grade 1. No pulmonary hypertension on echocardiogram. Limited repeat echocardiogram done on 12/24 reviewed 12/23/2019: Venous Dopplers were negative for DVT bilaterally (2) Pulmonary emphysema: Qualifiers: Emphysema type: unspecified Qualified Code(s): J43.9 - Emphysema, unspecified Code(s): J43.9 - Emphysema, unspecified Status: Acute Assessment and Plan: - status post high-dose steroids x3 days - continue bronchodilators - continue oxygen as above. Wean oxygen if tolerated. (3) CAD (coronary artery disease): Code(s): I25.10 - Atherosclerotic heart disease of [place] coronary artery without angina pectoris Status: Acute Assessment and Plan: aspirin and statin (4) HLD (hyperlipidemia): Code(s): E78.5 - Hyperlipidemia, unspecified Status: Acute Assessment and Plan: continue statin (5) HTN (hypertension): Qualifiers: Hypertension type: essential hypertension Qualified Code(s): I10 - Essential (primary) hypertension Code(s): I10 - Essential (primary) hypertension Status: Acute Assessment and Plan: blood pressure controlled at this time on home verapamil dose (6) DVT prophylaxis: Code(s): Z29.9 - Encounter for prophylactic measures, unspecified Status: Acute Assessment and Plan: Lovenox 40 mg subcutaneously daily (7) Dietary counseling and surveillance: Code(s): Z71.3 - Dietary counseling and surveillance Status: Acute Assessment and Plan: patient tolerating diabetic diet and has a good appetite. - contipation: on Miralax stress ulcer prophylaxis: Famotidine Additional Plan discussed with patient and his and updated them with patient's condition and plan of care. I answered her questions regarding LTAC, is anxious that she cannot meet with him. Will call [facility] for transfer 12/22/2019 Esthetician discussed with patient and his in detail regarding him being hypoxic and that he may require intubation. Both patient and his requested that he be a do not intubate and do not resuscitate. Code Status - DNR/DNI Total Critical Care Time - 34 minutes Due to a high probability of clinically significant, life threatening deterioration, the patient required my highest level of preparedness to intervene emergently and I personally spent this critical care time directly and personally managing the patient. This critical care time included obtaining a history; examining the patient; pulse oximetry; ordering and review of studies; arranging urgent treatment with development of a management plan; evaluation of patient's response to treatment; frequent reassessment; and discussions with other
[2020-01-03] MEDS: ATORVASTATIN 20 MG TABLET PO (08:54)
[2020-01-03] MEDS: ENOXAPARIN 40 MG/0.4 ML SYRINGE SUB-Q (08:54)
[2020-01-03] MEDS: ASPIRIN 81 MG ENTERIC TABLET PO (08:54)
[2020-01-03] MEDS: FAMOTIDINE 10 MG TABLET PO ×2 (08:55→20:00)
[2020-01-03] MEDS: VERAPAMIL HCL 180 MG TABLET ER PO ×2 (08:55→20:00)
[2020-01-03] MEDS: TAMSULOSIN HCL 0.4 MG CAPSULE PO (08:55)
[2020-01-03] MEDS: polyethylene glycoL 3350 17 GM POWD.PACK PO (08:55)
--- NOTE | 2020-01-03 11:14 | PM.PNPUL ---
Progress Note: A&P Assessment and Plan (1) Pulmonary fibrosis determined by high resolution computed tomography: Code(s): J84.10 - Pulmonary fibrosis, unspecified Status: Acute Assessment and Plan: Weaned to oxymizer 8 liters. - can be transferred to [facility] - continue weaning oxygen for sats > 90% - if stable, could potentially go home or rehab facility on oxymizer - I don't see need for home NIV at this point (2) Acute respiratory failure due to COVID-19: Code(s): U07.1 - COVID-19; J96.00 - Acute respiratory failure, unspecified whether with hypoxia or hypercapnia Status: Acute (3) Acute respiratory failure with hypoxia: Code(s): J96.01 - Acute respiratory failure with hypoxia Status: Acute (4) Chronic hypoxemic respiratory failure: Code(s): J96.11 - Chronic respiratory failure with hypoxia Status: Acute Subjective Date/time seen: 01/03/20 11:14 Interval history: Pt oxygen weaned to 8 liter oxymizer and sats are 92-98%. Can be transferred to [facility] Review of Systems Review of Systems: All systems reviewed & are unremarkable except as noted in HPI and below Exam Const: General: no acute distress Other: mild dyspnea and tachpnea Eyes: General: appearance normal, both eyes and all related structures Neck: Neck: no JVD Resp: Auscultation: crackles (left upper posterior ) on the left and diminished lung sounds Other: Left mid base mostly Cardio: Rate: regular rate Rhythm: regular rhythm Heart sounds: no murmurs GI: Auscultation: normal bowel sounds Skin: General skin exam: normal color and no rashes or lesions noted Neuro: Speech: normal speech Extrem: General: normal to inspection, no edema and no pedal edema Psych: Mental Status: mental status grossly normal Affect: normal affect Objective Data Vital Signs Vital Signs: Vital Signs - 24 hr 01/02/20 12:00 01/02/20 14:00 01/02/20 14:10 Temperature 36.3 C L Pulse Rate 79 82 95 Respiratory Rate 25 H 30 H 35 H Blood Pressure 121/67 149/87 H Pulse Oximetry 97 97 01/02/20 14:24 01/02/20 16:00 01/02/20 18:00 Temperature Pulse Rate 72 83 105 H Respiratory Rate 32 H 19 25 H Blood Pressure 112/79 Pulse Oximetry 92 01/02/20 20:00 01/02/20 20:11 01/02/20 20:13 Temperature 36.5 C Pulse Rate 80 75 Respiratory Rate 20 26 H Blood Pressure 119/79 Pulse Oximetry 100 98 01/02/20 20:17 01/02/20 22:00 01/02/20 23:26 Temperature Pulse Rate 78 76 88 Respiratory Rate 20 20 18 Blood Pressure 119/79 Pulse Oximetry 100 98 01/03/20 00:00 01/03/20 01:54 01/03/20 01:58 Temperature Pulse Rate 74 78 Respiratory Rate 14 18 Blood Pressure 97/59 L Pulse Oximetry 97 100 01/03/20 02:00 01/03/20 02:04 01/03/20 03:26 Temperature Pulse Rate 79 77 73 Respiratory Rate 18 18 11 L Blood Pressure Pulse Oximetry 100 99 01/03/20 04:00 01/03/20 06:00 01/03/20 08:00 Temperature 36.6 C 35.8 C L Pulse Rate 90 71 83 Respiratory Rate 31 H 11 L 30 H Blood Pressure 121/73 121/73 152/82 H Pulse Oximetry 94 96 92 01/03/20 08:51 01/03/20 09:01 01/03/20 09:22 Temperature Pulse Rate 101 H 97 109 H Respiratory Rate 22 H 22 H 20 Blood Pressure Pulse Oximetry 99 96 01/03/20 09:50 01/03/20 10:07 Temperature Pulse Rate 87 84 Respiratory Rate 20 20 Blood Pressure Pulse Oximetry 95 94 Intake/Output Intake/Output: Intake & Output 12/31/19 01/01/20 01/02/20 01/03/20 23:59 23:59 23:59 23:59 Intake Total 2225 0349 133 4964 Output Total 2375 1700 1550 900 Balance 150 250 -731 140 Meds/Results Medications: Active Medications Generic Name Dose Route Start Last Admin Trade Name Freq PRN Reason Stop Dose Admin Acetaminophen 650 mg 12/10/19 22:38 01/02/20 19:32 Tylenol Tablet PO 650 mg Q6H PRN Administration Mild Pain (1-3) or Fever Albuterol 2.5 mg 12/22/19 20:00 01/03/20 08:51 Albuterol
--- NOTE | 2020-01-03 11:32 | PCDIET ---
ICU Rounding Note: Patient eating fairly well on regular diet. Continues to take most Glucerna Shakes which are being provided with meals TID. Last recorded weight is 76.8kg which is increased from last review. +I/O. Bowel Motility: Last documented BM on 12/29/19. Miralax given today. Labs Reviewed: Hgb (12.6), Hct (39.9), BUN (24), Cr (0.5) Meds Noted: Albuterol, Lipitor, Tums, Pepcid Ac, Atrovent, Miralax Additional Notes: No documented skin breakdown. Following daily in ICU rounds. Assessing/reassessing every 7 days.
[2020-01-03] MEDS: ACETAMINOPHEN 325 MG TABLET 650 MG PO ×2 (12:19→19:48)
[2020-01-03] MEDS: ALPRAZolam 0.25 MG TABLET PO ×2 (12:19→19:48)
--- NOTE | 2020-01-03 17:50 | PM.IMPN ---
Progress Note: A&P Assessment and Plan (1) Acute respiratory failure with hypoxia: Code(s): J96.01 - Acute respiratory failure with hypoxia Status: Acute Assessment and Plan: Patient with significant oxygen requirement related to COVID complicated by his COPD. ABG showing no evidence of CO2 retention. Patient was admitted to the ICU. Completed Remdesivir on 12/12 and dexamethasone on 12/17. He also received convalescent plasma 12/08. . No evidence of aspiration. LE venous doppler negative. Continue Bronchodilators, and abx.( completed 8 days) Wean oxygen as tolerated. now down to 8 L NC Awaiting word for transfer to LTAC (2) COVID-19: Code(s): U07.1 - COVID-19 Status: Acute Assessment and Plan: Patient's approximate onset of symptoms started around 12/05/19. He tested positive for COVID on December 06. Dexamethasone and Remdesivir were started 12/09/19. Convalescent plasma given 12/09/19. Unclear on why his symptoms are persistent but probbably related to underlying COPD (he states he was having CAPELLAN with minimal exertion prior to becoming ill). Speech therapy evaluated the patient and there were no issues. Echo showing EF 65% and grade I diastolic dysfunction. . Lasix once given on 12/23 and 12/24 with good UOP. . Wean O2 as tolerated. , Nebs, and finsihed broad spectrum ABX 06/29(8 days) per intensivits. Continue supportive care. CT pulmonary fibrosis and residual COVID (3) Pulmonary emphysema: Qualifiers: Emphysema type: unspecified Qualified Code(s): J43.9 - Emphysema, unspecified Code(s): J43.9 - Emphysema, unspecified Status: Acute Assessment and Plan: Patient has a long history of tobacco use and subsequent emphysema. No wheezing. Continue Albuterol and Atrovent. . Wean oxygen as tolerated. Continue supportive care (4) HTN (hypertension): Qualifiers: Hypertension type: essential hypertension Qualified Code(s): I10 - Essential (primary) hypertension Code(s): I10 - Essential (primary) hypertension Status: Acute Assessment and Plan: BP well controlled. Continue verapamil with parameters in place. Continue to monitor (5) Pneumothorax: Qualifiers: Pneumothorax type: other pneumothorax Qualified Code(s): J93.83 - Other pneumothorax Code(s): J93.9 - Pneumothorax, unspecified Status: Deleted Assessment and Plan: Chest x-ray showing also a small right apical pneumothorax on admission. 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 Serial CXR show that the PTX has resolved. Continue to monitor. (6) DVT prophylaxis: Code(s): Z29.9 - Encounter for prophylactic measures, unspecified Status: Acute Assessment and Plan: Lovenox Subjective Date/time seen: 01/03/20 17:50 Interval history: Date of service: 01/02 79yo male here for acute respiratory failure from COVID. 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 Psych - normal mood and affect. Skin - warm and dry. Objective Data Vital Signs Vital Signs: Vital Signs - 24 hr 01/02/20 18:00 01/02/20 20:00 01/02/20 20:11 Temperature 36.5 C Pulse Rate 105 H 80 75 Respiratory Rate 25 H 20 26 H Blood Pressure 119/79 Pulse Oximetry 92 100 01/02/20 20:13 01/02/20 20:17 01/02/20 22:00 Temperature Pulse Rate 78 76 Respiratory Rate 20 20 Blood Pressure 119/79 Pulse Oximetry 98 100 01/02/20 23:26 01/03/20 00:00 01/03/20 01:54 Temperature Pulse Rate 88 74 Respiratory Rate 18 14 Blood Pressure 97/59 L Pulse Oximetry 98 97 100 01/03/20 01:58 01/03/20 02:00 01/03/20 02:04 Temperature Pulse Rate
[2020-01-03] MEDS: MELATONIN 5 MG TABLET PO (20:00)
[2020-01-04] VITALS (21 sets, daily range): BP systolic 93–122; BP diastolic 68–90; PULSE 75–103; RESP 11–35; TEMP 35.9–36.3; O2SAT 91–98
[2020-01-04] MEDS: ALBUTEROL SULFATE NEB 2.5 MG/0.5 ML INH INHALATION ×4 (03:19→20:42)
[2020-01-04] MEDS: IPRATROPIUM BR 0.02% INH SOLN 0.5 MG/2.5 ML VIAL INHALATION ×4 (03:19→20:43)
[2020-01-04 05:17] LABS: Basophils Absolute Auto 0.1 K/mm3 (0.0-0.1); Basophils Percent Auto 0.8 % (0.2-1.2); Eosinophils Absolute Auto 0.3 K/mm3 (0-0.3); Eosinophils Percent Auto 2.9 % (0-4.4); Hematocrit 38.7 % (42.0-52.0); Hemoglobin 12.3 g/dL (14.0-18.0); Immature Granulocyte Absolute 0.98 K/mm3 (0.00-0.031); Immature Granulocyte Percent A 8.6 % (0-0.5); Lymphocytes Absolute Auto 1.14 K/mm3 (0.9-3.2); Lymphocytes Percent Auto 10.1 % (18.3-44.2); Mean Corpuscular HGB Conc 31.8 g/dl (32-36); Mean Corpuscular Hemoglobin 28.3 pg (26-34); Mean Corpuscular Volume 89.2 fl (80-100); Mean Platelet Volume 9.3 fl (7.4-10.4); Monocytes Absolute Auto 0.6 K/mm3 (0.1-0.6); Monocytes Percent Auto 5.3 % (2.6-8.5); Neutrophils Absolute Auto 8.2 K/mm3 (1.3-6.7); Neutrophils Percent Auto 72.3 % (45.5-73.1); Platelet Count Result 261 k/mm3 (150-375); Red Blood Count 4.34 M/mm3 (4.6-6.20); Red Cell Distribution Width 15.3 % (11.5-14.5); White Blood Count 11.3 K/mm3 (4.5-10.0)
[2020-01-04] MEDS: CENTRAL LINE FLUSH 10 ML IV PUSH ×3 (05:26→21:03)
[2020-01-04 05:27] LABS: Anion Gap 3 mmol/L (8-16); Blood Urea Nitrogen 24 mg/dL (9-20); Calcium 8.1 mg/dL (8.4-10.2); Carbon Dioxide 32 mmol/L (22-30); Chloride 103 mmol/L (98-107); Estimated CRCL calculation 89 ml/min; Estimated Glomerular Filt Rate > 60; Glucose 114 mg/dL (75-110); Magnesium 2.2 mg/dL (1.6-2.3); Phosphorus 3.6 mg/dL (2.5-4.5); Potassium 3.6 mmol/L (3.4-5.0); Sodium 138 mmol/L (137-145)
[2020-01-04] MEDS: FAMOTIDINE 10 MG TABLET PO ×2 (08:10→20:31)
[2020-01-04] MEDS: TAMSULOSIN HCL 0.4 MG CAPSULE PO (08:11)
[2020-01-04] MEDS: polyethylene glycoL 3350 17 GM POWD.PACK PO (08:11)
[2020-01-04] MEDS: VERAPAMIL HCL 180 MG TABLET ER PO ×2 (08:11→20:31)
[2020-01-04] MEDS: ENOXAPARIN 40 MG/0.4 ML SYRINGE SUB-Q (08:11)
[2020-01-04] MEDS: ASPIRIN 81 MG ENTERIC TABLET PO (08:11)
[2020-01-04] MEDS: ATORVASTATIN 20 MG TABLET PO (08:11)
[2020-01-04 09:59] LABS: Alveolar/Arterial O2 Gradient 333.2 mmHg; Base Excess ABG 4.9 mEq/l (+/-2.0); Carboxyhemoglobin 0.5 % THb (0-2.0); Fractional Inspired Oxygen 60 %; HCO3 ABG 28.5 mEq/l (22.0-26.0); Methemoglobin ABG 0.3 %THb (0-1.5); Oxygen Content ABG 16.8 %vol (16.0-22.0); Oxygen Saturation ABG 89.4 % (95.0-100.0); Oxyhemoglobin 86.6 % THb (90.0-100.0); PCO2 ABG 38.7 mmHg (35.0-45.0); PO2 FiO2 Ratio Arterial Blood 0.87 %; Reduced Hemoglobin 12.6 %THb (0-5.0); Total Hemoglobin 13.8 g/dL (12.0-18.0); pH ABG 7.485 (7.350-7.450)
[2020-01-04 10:00] LABS: Device OTHER DEVICE; Modified Allen's Test Pass; Site Drawn RIGHT RADIAL
--- NOTE | 2020-01-04 10:12 | PM.PNPUL ---
Progress Note: A&P Assessment and Plan (1) Chronic hypoxemic respiratory failure: Code(s): J96.11 - Chronic respiratory failure with hypoxia Status: Acute Assessment and Plan: - continue oxyimzer 8-12 liters to keep sats > 90% or PaO2 > 55 mm Hg - Will add pulmicort 0.5 mg bid nebulized today - will add albuterol 2.5 mg Q6h nebulized to Atrovent schedule - schedule xanax 0.25 mg bid - pt/ot, up into chair for two hours/day (2) Pulmonary fibrosis determined by high resolution computed tomography: Code(s): J84.10 - Pulmonary fibrosis, unspecified Status: Acute (3) COVID-19: Code(s): U07.1 - COVID-19 Status: Acute (4) COPD (chronic obstructive pulmonary disease): Qualifiers: COPD type: unspecified COPD Qualified Code(s): J44.9 - Chronic obstructive pulmonary disease, unspecified Code(s): J44.9 - Chronic obstructive pulmonary disease, unspecified Status: Acute Subjective Date/time seen: 01/04/20 10:12 Interval history: Stable, oxygen on oxyimizer turned up to 10 liters. oxygenation. Review of Systems Review of Systems: All systems reviewed & are unremarkable except as noted in HPI and below Exam Const: General: no acute distress Other: mild dyspnea and tachpnea Eyes: General: appearance normal, both eyes and all related structures Neck: Neck: no JVD Resp: Auscultation: crackles (left upper posterior ) on the left and diminished lung sounds Other: Left mid base mostly Cardio: Rate: regular rate Rhythm: regular rhythm Heart sounds: no murmurs GI: Auscultation: normal bowel sounds Skin: General skin exam: normal color and no rashes or lesions noted Neuro: Speech: normal speech Extrem: General: normal to inspection, no edema and no pedal edema Psych: Mental Status: mental status grossly normal Affect: normal affect Objective Data Vital Signs Vital Signs: Vital Signs - 24 hr 01/03/20 12:00 01/03/20 14:00 01/03/20 14:20 Temperature 36.7 C Pulse Rate 97 97 109 H Respiratory Rate 20 22 H Blood Pressure 137/88 Pulse Oximetry 91 01/03/20 14:29 01/03/20 16:00 01/03/20 20:00 Temperature 36.4 C 36.2 C L Pulse Rate 101 H 27 L 110 H Respiratory Rate 22 H 27 H 32 H Blood Pressure 125/80 118/80 Pulse Oximetry 89 L 85 L 01/03/20 20:30 01/03/20 22:00 01/03/20 22:08 Temperature Pulse Rate 96 97 Respiratory Rate 19 Blood Pressure Pulse Oximetry 92 01/03/20 22:14 01/03/20 22:16 01/04/20 00:00 Temperature 36.3 C L Pulse Rate 93 91 85 Respiratory Rate 12 12 11 L Blood Pressure 93/69 L Pulse Oximetry 92 94 01/04/20 02:00 01/04/20 03:19 01/04/20 03:22 Temperature Pulse Rate 84 88 91 Respiratory Rate 26 H 24 H Blood Pressure Pulse Oximetry 95 01/04/20 03:27 01/04/20 04:00 01/04/20 06:00 Temperature 36.2 C L Pulse Rate 84 82 75 Respiratory Rate 16 11 L Blood Pressure 107/71 Pulse Oximetry 98 01/04/20 08:00 01/04/20 09:53 01/04/20 10:08 Temperature 36.1 C L Pulse Rate 79 93 87 Respiratory Rate 14 24 H 33 H Blood Pressure 122/90 Pulse Oximetry 97 93 Intake/Output Intake/Output: Intake & Output 01/01/20 01/02/20 01/03/20 01/04/20 23:59 23:59 23:59 23:59 Intake Total 9901 078 3636 870 Output Total 1700 1550 1025 250 Balance -250 -770 975 620 Meds/Results Medications: Active Medications Generic Name Dose Route Start Last Admin Trade Name Freq PRN Reason Stop Dose Admin Acetaminophen 650 mg 12/10/19 22:38 01/03/20 19:48 Tylenol Tablet PO 650 mg Q6H PRN Administration Mild Pain (1-3) or Fever Albuterol 2.5 mg 12/22/19 20:00 01/04/20 09:44 Albuterol Sulf Neb 2.5mg/0.5ml INHALATION 2.5 mg Q6HRT ALEX Administration Alprazolam 0.25 mg 12/09/19 15:35 01/03/20 19:48 Xanax PO 0.25 mg BID PRN Administration anxiety Aspirin 81 mg 12/10/19 09:00 01/04/20 08:11 Aspirin Ec PO 81 mg [facility] [place] [facility]
[2020-01-04] MEDS: ACETAMINOPHEN 325 MG TABLET 650 MG PO ×2 (15:03→21:02)
--- NOTE | 2020-01-04 19:01 | PM.IMPN ---
Progress Note: A&P Assessment and Plan (1) Acute respiratory failure with hypoxia: Code(s): J96.01 - Acute respiratory failure with hypoxia Status: Acute Assessment and Plan: Patient with significant oxygen requirement related to COVID complicated by his COPD and pulmonary fibrosis. ABG showing no evidence of CO2 retention. Patient was admitted to the ICU. Completed Remdesivir on 12/12 and dexamethasone on 12/17. He also received convalescent plasma 12/08. No evidence of aspiration. LE venous doppler negative. Completed abx. Continue Bronchodilators. Wean oxygen as tolerated. (2) COVID-19: Code(s): U07.1 - COVID-19 Status: Acute Assessment and Plan: Patient's approximate onset of symptoms started around 12/05/19. He tested positive for COVID on December 06. Dexamethasone and Remdesivir were started 12/09/19. Convalescent plasma given 12/09/19. Unclear on why his symptoms are persistent but probably related to underlying COPD (he states he was having CAPELLAN with minimal exertion prior to becoming ill). Speech therapy evaluated the patient and there were no issues. Echo showing EF 65% and grade I diastolic dysfunction. Lasix once given on 12/23 and 12/24 with good UOP. He finished broad spectrum abx. CT chest 12/28/19 showing pulmonary fibrosis, atelectasis and sequela of COVID. Wean O2 as tolerated. Continue Nebs. Continue supportive care. (3) Pulmonary emphysema: Qualifiers: Emphysema type: unspecified Qualified Code(s): J43.9 - Emphysema, unspecified Code(s): J43.9 - Emphysema, unspecified Status: Acute Assessment and Plan: Patient has a long history of tobacco use and subsequent emphysema. No wheezing. Continue Albuterol and Atrovent. Wean oxygen as tolerated. Continue supportive care. (4) HTN (hypertension): Qualifiers: Hypertension type: essential hypertension Qualified Code(s): I10 - Essential (primary) hypertension Code(s): I10 - Essential (primary) hypertension Status: Acute Assessment and Plan: BP well controlled. Continue verapamil with parameters in place. Continue to monitor (5) Pneumothorax: Qualifiers: Pneumothorax type: other pneumothorax Qualified Code(s): J93.83 - Other pneumothorax Code(s): J93.9 - Pneumothorax, unspecified Status: Deleted Assessment and Plan: Chest x-ray showing also a small right apical pneumothorax on admission. 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 Serial CXR show that the PTX has resolved. Continue to monitor. (6) DVT prophylaxis: Code(s): Z29.9 - Encounter for prophylactic measures, unspecified Status: Acute Assessment and Plan: Lucillenox Subjective Date/time seen: 01/04/20 19:01 Interval history: Date of service: 01/03 79yo male here for acute respiratory failure from COVID. Resuming care. Chart reviewed. SOB better. No CP - has fleeting chest discomfort at times but more chronic. Eating okay. Exam Narrative: Exam Narrative: AF 96.8 110/68 91 11 94% 10L NC Gen - NARD lying semi-recumbent in bed Chest - bibasilar inspiratory crackles CV - RRR S1/S2; Tele showing occas bigeminy Abd - soft, NT/ND, +BS Ext - no pedal edema. Psych - normal mood and affect. Skin - warm and dry. Objective Data Vital Signs Vital Signs: Vital Signs - 24 hr 01/03/20 20:00 01/03/20 20:30 01/03/20 22:00 Temperature 97.2 F L Pulse Rate 110 H 96 Respiratory Rate 32 H Blood Pressure 118/80 Pulse Oximetry 85 L 92 01/03/20 22:08 01/03/20 22:14 01/03/20 22:16 Temperature Pulse Rate 97 93 91 Respiratory Rate 19 12 12 Blood Pressure Pulse Oximetry 92 01/04/20 00:00 01/04/20 02:00 01/04/20 03:19 Temperature 97.4 F L Pulse Rate 85 84 88 Respiratory Rate 11 L 26 H Blood Pressure 93/69 L Pulse Oximetry 94 01/04/20 03:22 01/04/20 03:27 01/04/20 04:00
[2020-01-04] MEDS: MELATONIN 5 MG TABLET PO (20:31)
[2020-01-04] MEDS: ALPRAZolam 0.25 MG TABLET PO (20:32)
[2020-01-04] MEDS: BUDESONIDE RESPULE NEB 0.5 MG/2 ML AMP INHALATION (20:43)
[2020-01-05] VITALS (19 sets, daily range): BP systolic 112–148; BP diastolic 67–94; PULSE 79–101; RESP 20–34; TEMP 35.8–36.7; O2SAT 90–97
[2020-01-05] MEDS: ALBUTEROL SULFATE NEB 2.5 MG/0.5 ML INH INHALATION ×4 (02:42→21:20)
[2020-01-05] MEDS: IPRATROPIUM BR 0.02% INH SOLN 0.5 MG/2.5 ML VIAL INHALATION ×4 (02:42→21:20)
[2020-01-05 04:39] LABS: Basophils Absolute Auto 0.1 K/mm3 (0.0-0.1); Basophils Percent Auto 0.6 % (0.2-1.2); Eosinophils Absolute Auto 0.2 K/mm3 (0-0.3); Eosinophils Percent Auto 2.7 % (0-4.4); Hematocrit 37.9 % (42.0-52.0); Hemoglobin 12.1 g/dL (14.0-18.0); Immature Granulocyte Absolute 0.83 K/mm3 (0.00-0.031); Immature Granulocyte Percent A 9.2 % (0-0.5); Lymphocytes Absolute Auto 1.17 K/mm3 (0.9-3.2); Mean Corpuscular HGB Conc 31.9 g/dl (32-36); Mean Corpuscular Hemoglobin 28.8 pg (26-34); Mean Corpuscular Volume 90.2 fl (80-100); Mean Platelet Volume 9.7 fl (7.4-10.4); Monocytes Absolute Auto 0.6 K/mm3 (0.1-0.6); Monocytes Percent Auto 6.9 % (2.6-8.5); Neutrophils Absolute Auto 6.1 K/mm3 (1.3-6.7); Neutrophils Percent Auto 67.6 % (45.5-73.1); Platelet Count Result 216 k/mm3 (150-375); Red Cell Distribution Width 15.5 % (11.5-14.5)
[2020-01-05 04:54] LABS: Anion Gap 0 mmol/L (8-16); Blood Urea Nitrogen 23 mg/dL (9-20); Calcium 8.2 mg/dL (8.4-10.2); Carbon Dioxide 33 mmol/L (22-30); Chloride 106 mmol/L (98-107); Estimated CRCL calculation 105 ml/min; Estimated Glomerular Filt Rate > 60; Glucose 110 mg/dL (75-110); Potassium 3.4 mmol/L (3.4-5.0); Sodium 139 mmol/L (137-145)
[2020-01-05] MEDS: CENTRAL LINE FLUSH 10 ML IV PUSH ×3 (06:23→20:03)
[2020-01-05] MEDS: polyethylene glycoL 3350 17 GM POWD.PACK PO (09:32)
[2020-01-05] MEDS: VERAPAMIL HCL 180 MG TABLET ER PO ×2 (09:32→20:01)
[2020-01-05] MEDS: ENOXAPARIN 40 MG/0.4 ML SYRINGE SUB-Q (09:33)
[2020-01-05] MEDS: FAMOTIDINE 10 MG TABLET PO ×2 (09:33→20:00)
[2020-01-05] MEDS: ATORVASTATIN 20 MG TABLET PO (09:33)
[2020-01-05] MEDS: ASPIRIN 81 MG ENTERIC TABLET PO (09:33)
[2020-01-05] MEDS: TAMSULOSIN HCL 0.4 MG CAPSULE PO (09:34)
[2020-01-05] MEDS: POTASSIUM CHLORIDE 20 MEQ TABLET 40 MEQ PO (09:38)
[2020-01-05] MEDS: BUDESONIDE RESPULE NEB 0.5 MG/2 ML AMP INHALATION ×2 (09:49→21:20)
[2020-01-05] MEDS: BISACODYL 5 MG TABLET EC PO (09:56)
[2020-01-05] MEDS: ACETAMINOPHEN 325 MG TABLET 650 MG PO ×2 (09:56→17:22)
--- NOTE | 2020-01-05 11:52 | PM.IMPN ---
Progress Note: A&P Assessment and Plan (1) Acute respiratory failure with hypoxia: Code(s): J96.01 - Acute respiratory failure with hypoxia Status: Acute Assessment and Plan: Patient with significant oxygen requirement related to COVID complicated by his COPD and pulmonary fibrosis. ABG showing no evidence of CO2 retention. Patient was admitted to the ICU. Completed Remdesivir on 12/12 and dexamethasone on 12/17. He also received convalescent plasma 12/08. No evidence of aspiration. LE venous doppler negative. Completed abx. Continue Bronchodilators. Wean oxygen as tolerated. LTAC Placement being considered. (2) COVID-19: Code(s): U07.1 - COVID-19 Status: Acute Assessment and Plan: Patient's approximate onset of symptoms started around 12/05/19. He tested positive for COVID on December 06. Dexamethasone and Remdesivir were started 12/09/19. Convalescent plasma given 12/09/19. Unclear on why his symptoms are persistent but probably related to underlying COPD (he states he was having CAPELLAN with minimal exertion prior to becoming ill). Speech therapy evaluated the patient and there were no issues. Echo showing EF 65% and grade I diastolic dysfunction. Lasix given inteermittently. He finished broad spectrum abx. CT chest 12/28/19 showing pulmonary fibrosis, atelectasis and sequela of COVID. Wean O2 as tolerated. Continue Nebs. Continue supportive care. Appreciate pulmonary input. (3) Pulmonary emphysema: Qualifiers: Emphysema type: unspecified Qualified Code(s): J43.9 - Emphysema, unspecified Code(s): J43.9 - Emphysema, unspecified Status: Acute Assessment and Plan: Patient has a long history of tobacco use and subsequent emphysema with scarring. Continue Albuterol and Atrovent. Wean oxygen as tolerated. Continue supportive care. (4) HTN (hypertension): Qualifiers: Hypertension type: essential hypertension Qualified Code(s): I10 - Essential (primary) hypertension Code(s): I10 - Essential (primary) hypertension Status: Acute Assessment and Plan: BP remains well controlled. Continue verapamil with parameters in place. Continue to monitor (5) Pneumothorax: Qualifiers: Pneumothorax type: other pneumothorax Qualified Code(s): J93.83 - Other pneumothorax Code(s): J93.9 - Pneumothorax, unspecified Status: Deleted Assessment and Plan: Chest x-ray showing a small right apical pneumothorax on admission. 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 Serial CXR show that the PTX has resolved. Continue to monitor. (6) DVT prophylaxis: Code(s): Z29.9 - Encounter for prophylactic measures, unspecified Status: Acute Assessment and Plan: Lovenox Subjective Date/time seen: 01/05/20 11:52 Interval history: Date of service: 01/04 79yo male here for acute respiratory failure from COVID. Slept off and on. Eating okay. Still SOB even with mild exertion. Not using the IS very much. Has not been out of bed yet Exam Narrative: Exam Narrative: AF 96.8 139/91 95 26 96% 10L NC Gen - NARD lying semi-recumbent in bed right side down Chest - dry bibasilar inspiratory crackles CV - RRR S1/S2; Tele showing occas bigeminy Abd - soft, NT/ND, +BS Ext - no pedal edema. Psych - normal mood and affect. Skin - warm and dry. Objective Data Vital Signs Vital Signs: Vital Signs - 24 hr 01/04/20 12:00 01/04/20 14:00 01/04/20 14:12 Temperature 97 F L Pulse Rate 84 83 103 H Respiratory Rate 16 35 H Blood Pressure 114/77 Pulse Oximetry 92 01/04/20 14:18 01/04/20 16:00 01/04/20 18:00 Temperature 96.8 F L Pulse Rate 96 88 91 Respiratory Rate 34 H 11 L Blood Pressure 110/68 Pulse Oximetry 94 01/04/20 20:00 01/04/20 20:43 01/04/20 20:56 Temperature 96.7 F L Pulse Rate 101 H 91 91 Respiratory Rate 28 H 32 H 35 H Blood Pre
--- NOTE | 2020-01-05 12:40 | PM.PNPUL ---
Progress Note: A&P Assessment and Plan (1) Chronic hypoxemic respiratory failure: Code(s): J96.11 - Chronic respiratory failure with hypoxia Status: Acute Assessment and Plan: - continue oxyimzer 8-12 liters to keep sats > 90% or PaO2 > 55 mm Hg - continue pulmicort 0.5 mg bid nebulized - continue albuterol 2.5 mg Q6h nebulized along with Atrovent schedule - schedule xanax 0.25 mg bid - pt/ot, up into chair for two hours/day as tolerated (2) Pulmonary fibrosis determined by high resolution computed tomography: Code(s): J84.10 - Pulmonary fibrosis, unspecified Status: Acute Assessment and Plan: This is secondary to COVID-19, one of the severe side effects of this atrocious virus. (3) COVID-19: Code(s): U07.1 - COVID-19 Status: Acute (4) COPD (chronic obstructive pulmonary disease): Qualifiers: COPD type: unspecified COPD Qualified Code(s): J44.9 - Chronic obstructive pulmonary disease, unspecified Code(s): J44.9 - Chronic obstructive pulmonary disease, unspecified Status: Acute Subjective Date/time seen: 01/05/20 12:40 Mr Nelson is seen for chronic hypoxemic respiratory failure, COVID19 with secondary pulmonary fibrosis, on an oximizer with deep drops in saturation with talking or movement. He is eating adequately. Has a significant amount of anxiety, as expected. Last CXR was Dec 31. Review of Systems Review of Systems: All systems reviewed & are unremarkable except as noted in HPI and below Exam Const: General: no acute distress Other: mild dyspnea and tachpnea Eyes: General: appearance normal, both eyes and all related structures Neck: Neck: no JVD Resp: Auscultation: crackles (left upper posterior ) on the left and diminished lung sounds Other: Left mid base mostly Cardio: Rate: regular rate Rhythm: regular rhythm Heart sounds: no murmurs GI: Auscultation: normal bowel sounds Skin: General skin exam: normal color and no rashes or lesions noted Neuro: Speech: normal speech Extrem: General: normal to inspection, no edema and no pedal edema Psych: Mental Status: mental status grossly normal Affect: normal affect Objective Data Vital Signs Vital Signs: Vital Signs - 24 hr 01/04/20 14:00 01/04/20 14:12 01/04/20 14:18 Temperature Pulse Rate 83 103 H 96 Respiratory Rate 35 H 34 H Blood Pressure Pulse Oximetry 01/04/20 16:00 01/04/20 18:00 01/04/20 20:00 Temperature 36.0 C L 35.9 C L Pulse Rate 88 91 101 H Respiratory Rate 11 L 28 H Blood Pressure 110/68 113/75 Pulse Oximetry 94 92 01/04/20 20:43 01/04/20 20:56 01/04/20 22:00 Temperature Pulse Rate 91 91 90 Respiratory Rate 32 H 35 H Blood Pressure Pulse Oximetry 91 01/05/20 00:00 01/05/20 02:00 01/05/20 02:42 Temperature 36.0 C L Pulse Rate 101 H 79 85 Respiratory Rate 33 H 28 H Blood Pressure 125/86 Pulse Oximetry 95 01/05/20 02:52 01/05/20 04:00 01/05/20 06:00 Temperature 35.8 C L Pulse Rate 87 96 92 Respiratory Rate 24 H 20 Blood Pressure 112/67 Pulse Oximetry 94 01/05/20 08:00 01/05/20 09:49 01/05/20 10:00 Temperature 36.0 C L Pulse Rate 95 91 92 Respiratory Rate 26 H 33 H 32 H Blood Pressure 139/91 H Pulse Oximetry 96 01/05/20 11:15 01/05/20 12:00 Temperature Pulse Rate 95 92 Respiratory Rate 26 H 34 H Blood Pressure Pulse Oximetry 96 97 Intake/Output Intake/Output: Intake & Output 01/02/20 01/03/20 01/04/20 01/05/20 23:59 23:59 23:59 23:59 Intake Total 780 2000 1840 360 Output Total 1550 1025 700 500 Balance -931 519 3883 -140 Meds/Results Medications: Active Medications Generic Name Dose Route Start Last Admin Trade Name Freq PRN Reason Stop Dose Admin Acetaminophen 650 mg 12/10/19 22:38 01/05/20 09:56 Tylenol Tablet PO 650 mg Q6H PRN Administration Mild Pain (1-
[2020-01-05] MEDS: ALPRAZolam (*CRX) 0.25 MG TABLET PO ×2 (12:47→17:22)
--- NOTE | 2020-01-05 14:42 | PCPTNOTE ---
Patient waiting on surgical boot following surgery will hold on PT evaluation until it arrives.
[2020-01-05] MEDS: oxyCODONE/ACETAMINOPHEN 5-325 MG TABLET 1 TABLET PO (20:00)
[2020-01-05] MEDS: MELATONIN 5 MG TABLET PO (20:01)
[2020-01-06] VITALS (21 sets, daily range): BP systolic 106–124; BP diastolic 67–83; PULSE 75–95; RESP 12–36; TEMP 36.4–36.6; O2SAT 90–99
[2020-01-06] MEDS: oxyCODONE/ACETAMINOPHEN 5-325 MG TABLET 1 TABLET PO (00:06)
[2020-01-06] MEDS: IPRATROPIUM BR 0.02% INH SOLN 0.5 MG/2.5 ML VIAL INHALATION ×4 (02:13→21:02)
[2020-01-06] MEDS: ALBUTEROL SULFATE NEB 2.5 MG/0.5 ML INH INHALATION ×4 (02:13→21:02)
[2020-01-06] MEDS: CENTRAL LINE FLUSH 10 ML IV PUSH ×3 (06:10→20:55)
[2020-01-06] MEDS: BUDESONIDE RESPULE NEB 0.5 MG/2 ML AMP INHALATION ×2 (08:24→21:01)
[2020-01-06] MEDS: VERAPAMIL HCL 180 MG TABLET ER PO ×2 (08:27→20:55)
[2020-01-06] MEDS: ATORVASTATIN 20 MG TABLET PO (08:27)
[2020-01-06] MEDS: FAMOTIDINE 10 MG TABLET PO ×2 (08:27→20:55)
[2020-01-06] MEDS: ASPIRIN 81 MG ENTERIC TABLET PO (08:27)
[2020-01-06] MEDS: TAMSULOSIN HCL 0.4 MG CAPSULE PO (08:27)
[2020-01-06] MEDS: ALPRAZolam (*CRX) 0.25 MG TABLET PO ×3 (08:28→17:20)
[2020-01-06] MEDS: ENOXAPARIN 40 MG/0.4 ML SYRINGE SUB-Q (08:28)
--- NOTE | 2020-01-06 09:28 | PM.IMPN ---
Progress Note: A&P Assessment and Plan (1) Acute respiratory failure with hypoxia: Code(s): J96.01 - Acute respiratory failure with hypoxia Status: Acute Assessment and Plan: Patient with significant oxygen requirement related to COVID complicated by his COPD and pulmonary fibrosis. ABG showing no evidence of CO2 retention. Patient was admitted to the ICU. Completed Remdesivir on 12/12 and dexamethasone on 12/17. He also received convalescent plasma 12/08. No evidence of aspiration. LE venous doppler negative. Completed abx. Continue Bronchodilators. Wean oxygen as tolerated. Placement being considered. (2) COVID-19: Code(s): U07.1 - COVID-19 Status: Acute Assessment and Plan: Patient's approximate onset of symptoms started around 12/05/19. He tested positive for COVID on December 06. Dexamethasone and Remdesivir were started 12/09/19. Convalescent plasma given 12/09/19. Unclear on why his symptoms are persistent but probably related to underlying COPD (he states he was having CAPELLAN with minimal exertion prior to becoming ill). Speech therapy evaluated the patient and there were no issues. Echo showing EF 65% and grade I diastolic dysfunction. Lasix given inteermittently. He finished broad spectrum abx. CT chest 12/28/19 showing pulmonary fibrosis, atelectasis and sequela of COVID. Wean O2 as tolerated. Continue Nebs. Continue supportive care. Appreciate pulmonary input. (3) Pulmonary emphysema: Qualifiers: Emphysema type: unspecified Qualified Code(s): J43.9 - Emphysema, unspecified Code(s): J43.9 - Emphysema, unspecified Status: Acute Assessment and Plan: Patient has a long history of tobacco use and subsequent emphysema with scarring. Continue Albuterol and Atrovent. Wean oxygen as tolerated. Continue supportive care. (4) HTN (hypertension): Qualifiers: Hypertension type: essential hypertension Qualified Code(s): I10 - Essential (primary) hypertension Code(s): I10 - Essential (primary) hypertension Status: Acute Assessment and Plan: BP reviewed on 01/05 BP remains well controlled. Continue verapamil with parameters in place. Continue to monitor (5) Pneumothorax: Qualifiers: Pneumothorax type: other pneumothorax Qualified Code(s): J93.83 - Other pneumothorax Code(s): J93.9 - Pneumothorax, unspecified Status: Deleted Assessment and Plan: Chest x-ray showing a small right apical pneumothorax on admission. 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 Serial CXR show that the PTX has resolved. Continue to monitor. (6) DVT prophylaxis: Code(s): Z29.9 - Encounter for prophylactic measures, unspecified Status: Acute Assessment and Plan: Lovenox Subjective Date/time seen: 01/06/20 09:28 Interval history: Date of service: 01/04 79yo male here for acute respiratory failure from COVID. patient slept well. Still on 10 L. still feels short of breath. No chest pain. Eating normally. Was up walking even with therapy yesterday. Not up to the chair much. Nml Urine output. Nml Bowel movements. Exam Narrative: Exam Narrative: AF 97.7 118/69 88 22 90% on 10L NC Gen - NARD Chest - few basilar rhonchi o/w distant BS. becomes tachypneic at times CV - RRR S1/S2; Tele showing occas bigeminy Abd - soft, NT/ND, +BS Ext - no pedal edema. Psych - anxious with hyperventilation at times Skin - warm and dry. Objective Data Vital Signs Vital Signs: Vital Signs - 24 hr 01/05/20 09:49 01/05/20 10:00 01/05/20 11:15 Temperature Pulse Rate 91 92 95 Respiratory Rate 33 H 32 H 26 H Blood Pressure Pulse Oximetry 96 01/05/20 12:00 01/05/20 14:00 01/05/20 16:00 Temperature 98.0 F Pulse Rate 94 99 90 Respiratory Rate 25 H 27 H Blood Pressure 142/92 H 120/76 Pulse Oximetry 94 91 01/05/20 18:00 01/05/20 20:00 0
--- NOTE | 2020-01-06 15:48 | PM.TDS ---
Transfer Discharge Sum: Prov Provider Date of admission: 12/09/19 09:20 Primary care physician: Mark Roque MD Admitting clinician: Cb Campbell MD Consults: 12/25/19 16:17 Consult to Physician Routine Comment: SPOKE WITH DR. AMADOR Consulting Provider: Traci Amador call taker/MD group to consult: Pulmonary Reason for consultation: COVID Has provider been notified: Yes Attending physician on discharge: Moisés Campbell Discharging clinician: Moisés Campbell Anticipated date of transfer: 01/06/20 Receiving physician/facility: [place] [facility]; Discussed the case with Dr Elam DS: Admitting Diagnosis Admitting Diagnosis Admitting Diagnosis: COVID 19 pneumonia/right pneumothorax DS: Discharge Diagnosis Discharge Diagnosis (1) COVID-19: Code(s): U07.1 - COVID-19 Status: Acute Assessment and Plan: Patient's approximate onset of symptoms started around 12/05/19. He tested positive for COVID on December 06. Dexamethasone and Remdesivir were started 12/09/19. Convalescent plasma given 12/09/19. Despite appropriate treatment, patient had persistent and severe hypoxia felt related to underlying COPD (he states he was having CAPELLAN with minimal exertion prior to becoming ill). Speech therapy evaluated the patient and there were no issues. Echo showing EF 65% and grade I diastolic dysfunction. Lasix given intermittently. He finished a course of broad spectrum abx. CT chest 12/28/19 showing pulmonary fibrosis, atelectasis and sequela of COVID. Weaned O2 as tolerated to 10L. Appreciate pulmonary input. Able to be discharged to LTAC. (2) Acute respiratory failure with hypoxia: Code(s): J96.01 - Acute respiratory failure with hypoxia Status: Acute Assessment and Plan: Patient with significant oxygen requirement related to COVID complicated by his COPD and pulmonary fibrosis. ABG showing no evidence of CO2 retention. Patient was admitted to the ICU. Completed Remdesivir on 12/12 and dexamethasone on 12/17. He also received convalescent plasma 12/08. No evidence of aspiration. LE venous doppler negative. Completed abx. Treated with Bronchodilators. (3) Pulmonary emphysema: Qualifiers: Emphysema type: unspecified Qualified Code(s): J43.9 - Emphysema, unspecified Code(s): J43.9 - Emphysema, unspecified Status: Acute Assessment and Plan: Patient has a long history of tobacco use and subsequent emphysema with scarring. We continued Albuterol and Atrovent. Weaned oxygen as tolerated. (4) HTN (hypertension): Qualifiers: Hypertension type: essential hypertension Qualified Code(s): I10 - Essential (primary) hypertension Code(s): I10 - Essential (primary) hypertension Status: Acute Assessment and Plan: BP remained well controlled. We continued verapamil with parameters in place. (5) Pneumothorax: Qualifiers: Pneumothorax type: other pneumothorax Qualified Code(s): J93.83 - Other pneumothorax Code(s): J93.9 - Pneumothorax, unspecified Status: Deleted Assessment and Plan: Chest x-ray showing a small right apical pneumothorax on admission. 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 Serial CXR show that the PTX has resolved. Transfer Discharge Sum: Med Medications Active and Home Medications: Home Medications verapamil 180 mg tablet,extended release 180 mg PO Q12H #180 tablet 03/26/19 [Rx Confirmed 12/09/19] alprazolam 0.25 mg tablet 0.25 mg PO BID PRN #60 tablet 11/10/19 [Rx Confirmed 12/09/19] tamsulosin 0.4 mg capsule 0.4 mg PO DAILY #30 cap 12/01/19 [Rx Confirmed 12/09/19] atorvastatin 20 mg tablet 20 mg PO DAILY #90 tablet 12/02/19 [Rx Confirmed 12/09/19] Active Medications Acetaminophen (Tylenol Tablet) 650 mg PO Q6H PRN PRN Reason: Mild Pain (1-3) or Fever Last Admin: 01/05/20 17:22 Dose: 650 mg Documented by: Gudelia
[2020-01-06] MEDS: MELATONIN 5 MG TABLET PO (20:55)
== END 2020-01-06 21:30 | DRG 177 ==
LOC: ANHED 09:12 → ANHICU 09:26
PROVIDERS: Internal Medicine; Internal Medicine Critical Care Medicine; Admitting Provider Internal Medicine; Emergency Provider Emergency Medicine; PCP Family Medicine; Visit Provider Internal Medicine
DX: U07.1 COVID-19 (principal); J96.21 Acute and chronic respiratory failure with hypoxia; J93.83 Other pneumothorax; J84.10 Pulmonary fibrosis, unspecified; J43.9 Emphysema, unspecified; R79.1 Abnormal coagulation profile; I25.10 Atherosclerotic heart disease of native coronary artery without angina pectoris; I10 Essential (primary) hypertension; E78.5 Hyperlipidemia, unspecified; I73.9 Peripheral vascular disease, unspecified; N40.0 Benign prostatic hyperplasia without lower urinary tract symptoms; Z66 Do not resuscitate; Z79.899 Other long term (current) drug therapy; Z87.891 Personal history of nicotine dependence; Z95.5 Presence of coronary angioplasty implant and graft; Z85.118 Personal history of other malignant neoplasm of bronchus and lung; Z90.2 Acquired absence of lung [part of]
CPT/HCPCS: 36415; 36430; 36569; 36600; 71045; 71250; 80048; 80053; 80069; 80202; 82375; 82550; 82728; 82805; 83050; 83605; 83615; 83735; 83880; 84100; 85025; 85027; 85380; 85610; 85730; 86140; 86850; 86900; 86901; 87040; 87635; 92610; 93005; 93306; 93970; 94640; 96365; 96367; 96375; 97110; 97162; 97165; 99285; A9270; C1751; C9803; J0456; J0692; J0696; J1100; J1650; J1815; J1940; J2060; J2930; J3370; J7030; J7120; P9059; U0003

== ENCOUNTER 2020-02-16 09:33 | Outpatient (CLI) | payer MEDICARE, SELFPAY ==
--- NOTE | ~2020-02-16 | US_ITS ---
US venous doppler [facility] DATE: 02/16/2020 10:13 INDICATION: Left leg pain and swelling TECHNIQUE: Real-time and color flow imaging and Doppler analysis of the veins of the lower extremitie s COMPARISON: None FINDINGS: There is spontaneous and phasic flow and normal augmentation and color flow signal and norm al compression of the deep veins of both lower extremities. IMPRESSION: No evidence of deep venous thrombosis of the lower extremities Reviewed, dictated and finalized at [facility]. Reviewed, dictated and finalized at [facility].
== END 2020-02-16 09:34 | disposition home or self-care (01) ==
PROVIDERS: PCP Family Medicine; Visit Provider Family Medicine
DX: M79.662 Pain in left lower leg (principal); M79.89 Other specified soft tissue disorders
CPT/HCPCS: 93970

== ENCOUNTER 2020-02-29 12:04 | Outpatient (CLI) | payer MEDICARE, SELFPAY ==
--- NOTE | ~2020-02-29 | XR_ITS ---
EXAMINATION: XR chest 2V DATE: 02/29/2020 12:21 INDICATION: Shortness of breath. COVID-19 pneumonia. TECHNIQUE: Frontal and lateral views of the chest were obtained. COMPARISON: Chest single view 01/01/2020, chest CT 12/26/2019, 06/01/2015 FINDINGS: There are lucencies in the lungs, consistent with emphysema. There are widespread reticular opacities in the lungs, worst in left upper lung zone. The reticular opacities are improved from 12/20. No pleural effusion or pneumothorax. The heart size is normal. There is a stent graft in abdo re aorta. IMPRESSION: 1. Diffuse lung disease, likely a combination of emphysema and post-COVID chronic interstitial lung d isease. Reviewed, dictated and finalized at [facility]. WORKER IMPRESSION: 1. Diffuse lung disease, likely a combination of emphysema and post-COVID chron ic interstitial lung disease.
[2020-02-29 12:36] LABS: Hematocrit 36.9 % (42.0-52.0); Hemoglobin 11.9 g/dL (14.0-18.0); Mean Corpuscular HGB Conc 32.2 g/dl (32-36); Mean Corpuscular Volume 89.8 fl (80-100); Mean Platelet Volume 8.7 fl (7.4-10.4); Platelet Count Result 400 k/mm3 (150-375); Red Blood Count 4.11 M/mm3 (4.6-6.20); Red Cell Distribution Width 15.2 % (11.5-14.5); White Blood Count 9.9 K/mm3 (4.5-10.0)
[2020-02-29 12:52] LABS: Alanine Aminotransferase 12 U/L (4-50); Albumin Level 3.7 g/dL (3.5-5.1); Alkaline Phosphatase 86 U/L (38-126); Anion Gap 7 mmol/L (8-16); Aspartate Amino Transferase 19 U/L (17-59); Bilirubin,Total 0.5 mg/dL (0.2-1.3); Blood Urea Nitrogen 14 mg/dL (9-20); Carbon Dioxide 31 mmol/L (22-30); Chloride 104 mmol/L (98-107); Estimated Glomerular Filt Rate > 60; Glucose 103 mg/dL (75-110); Potassium 3.7 mmol/L (3.4-5.0); Sodium 142 mmol/L (137-145)
[2020-02-29 12:53] LABS: D Dimer 2.48 ug/mL (<0.48)
== END 2020-02-29 12:05 | disposition home or self-care (01) ==
PROVIDERS: PCP Family Medicine; Visit Provider Family Medicine
DX: R06.00 Dyspnea, unspecified (principal); R91.8 Other nonspecific abnormal finding of lung field
CPT/HCPCS: 36415; 71046; 80053; 85027; 85380

== ENCOUNTER 2020-03-06 14:43 | Outpatient (CLI) | payer MEDICARE, SELFPAY ==
--- NOTE | ~2020-03-06 | CT_ITS ---
EXAMINATION: CTA chest PE protocol DATE: 03/06/2020 15:14 INDICATION: Dyspnea Of the lungs since 12/26/2019. TECHNIQUE: Computed tomography angiography (CTA) of the chest was performed with 100 mL Omnipaque-350 intravenous contrast timed to evaluate the pulmonary arteries. Coronal maximum intensity projection 3D-reconstructions were created by the technologist. Automated exposure control and iterative reconst ruction technique were employed. Exam dose: 343.26 mGy-cm total exam DLP. There is also interval resolution of bilateral mild pleural effusions. There is no pneumothorax. COMPARISON: 02/29/[address] high resolution scan FINDINGS: There is diagnostic contrast enhancement of the pulmonary arteries. There is no evidence of pulmonary embolism. Coronary artery calcifications. There is thoracic aortic aneurysm, the aortic arch measuring 3.9 cm diameter, the descending thoracic aorta approximately 3.3 cm diameter. No hilar or mediastinal mass lesion or lymphadenopathy is detected. No pericardial or pleural effusion. Emphysematous changes are noted with multiple bullae identified, the largest on the left and the ante romedial chest, measuring up to approximately 3.4 x 5 cm maximal dimension. There is interval improvement of extensive bilateral pulmonary infiltrates since 12/26/2019. There are residual patchy groundglass infiltrates throughout both lungs but dramatic interval improvement of pa tchy areas of consolidation and extensive reticular prominence 3.5 mm nonobstructing upper pole right renal calculus. Endovascular abdominal aortic stent is noted, the proximal aspect at the level of the superior mesent heide artery. IMPRESSION: No evidence of pulmonary embolism Residual patchy groundglass infiltrates of the lungs, but dramatic improvement of bilateral infiltrat es and reticulations since 12/26/2019 Resolution of mild bilateral pleural effusions since 12/26/2019 Bullous emphysema Thoracic aortic aneurysm Endovascular abdominal aortic stent 3.5 mm nonobstructing upper pole right renal calculus Reviewed, dictated and finalized at [facility]. Reviewed, dictated and finalized at [facility]. [employer] CONSULTANT IMPRESSION: No evidence of pulmonary embolism Residual patchy groundglass infiltrates of the lungs, but dramatic improvement of bilateral infiltrates and reticulations since 12/26/2019 Resolution of mild bilateral pleural effusions since 12/26/2019 Bullous emphysema Thoracic aortic aneurysm Endovascular abdominal aortic stent 3.5 mm nonobstructing upper pole right renal calculus
== END 2020-03-06 14:44 | disposition home or self-care (01) ==
PROVIDERS: PCP Family Medicine; Visit Provider Family Medicine
DX: R06.09 Other forms of dyspnea (principal); R79.89 Other specified abnormal findings of blood chemistry; N20.0 Calculus of kidney; I71.2 Thoracic aortic aneurysm, without rupture; R91.8 Other nonspecific abnormal finding of lung field
CPT/HCPCS: 71275; Q9967

== ENCOUNTER 2020-06-23 10:14 | Outpatient (CLI) | payer MEDICARE, SELFPAY | END 2020-06-23 10:15 | disposition home or self-care (01) | LOC: ANHCOVIDVC 10:14 | PROVIDERS: PCP Family Medicine | DX: Z23 Encounter for immunization (principal) | CPT/HCPCS: 0001A; 91300 ==

== ENCOUNTER 2020-07-14 10:15 | Outpatient (CLI) | payer MEDICARE, SELFPAY | END 2020-07-14 10:16 | disposition home or self-care (01) | LOC: ANHCOVIDVC 10:15 | PROVIDERS: PCP Family Medicine | DX: Z23 Encounter for immunization (principal) | CPT/HCPCS: 0002A; 91300 ==